=== PATIENT | male | born 1980 | race Caucasian/White ===

== ENCOUNTER → 2016-08-28 | Outpatient (CLI) | payer BC ==
[~2016-08-28] MED LIST: ADVIN25/60 INH; AMOX875T PO; ATOR-22 PO; CLR10 PO; DIAZ-165 PO; DOXY-300 PO; DULA0.5I INJ; GLIM4TAB2 PO; INSDGIPEN SC; LISI40TA PO; MONT1TAB5 PO; OXYC-57 PO; SERT-234 PO; SITA100T3 PO
[2016-08-28 11:06] LABS: ALB/GLOB RATIO 1.1 (0.9-2); ALT/SGPT 77 U/L (12-78); AST/SGOT 48 U/L (15-37); BLOOD UREA NITROGEN 9 mg/dl (7-18); BUN/CREATININE RATIO 13.4 (10-20); CARBON DIOXIDE 26 mmol/L (21-32); CHLORIDE 105 mmol/L (98-107); CHOLESTEROL 141 mg/dl (0-200); CREATININE 0.67 mg/dl (0.60-1.40); GLUCOSE 210 mg/dl (70-99); POTASSIUM 3.9 mmol/L (3.5-5.1); SODIUM 139 mmol/L (136-145); TRIGLYCERIDES 95 mg/dl (0-150); VERY LOW DENSITY LIPOPROT CALC 19 mg/dl
[2016-08-28 11:07] LABS: ALKALINE PHOSPHATASE 82 U/L (45-117); CHOLESTEROL/HDL RATIO 4.4; HDL CHOLESTEROL 32 mg/dl
[2016-08-28 11:21] LABS: ESTIMATED AVERAGE GLUCOSE 206 mg/dl; HA1C FLAG Normal (Normal)
[2016-08-28 11:55] LABS: CALCIUM 9.1 mg/dl (8.5-10.1)
== END | disposition home or self-care (01) ==
LOC: C.LABBC 07:57
PROVIDERS: ATTEND Family Medicine
DX: E11.65 Type 2 diabetes mellitus with hyperglycemia (principal); E78.2 Mixed hyperlipidemia

== ENCOUNTER 2016-09-28 15:53 | Emergency (ER) | payer BC ==
[~2016-09-28] VITALS: Ht 190.5 cm; Wt 151.6 kg
[2016-09-28] MEDS ORDERED: PIPERACILLIN/TAZOBACTAM 4.5 GM/100ML D5W IV STA (16:04)
[2016-09-28] MEDS ORDERED: SODIUM CHLORIDE 0.9% 1000ML 1,000 ML IV ONE (16:04)
[2016-09-28] MEDS ORDERED: ACETAMINOPHEN 500 MG TAB PO STA (16:04)
--- NOTE | 2016-09-28 16:21 | DIAGNOSTIC IMAGING REPORT ---
CHEST ONE VIEW PORTABLE CLINICAL HISTORY: Sepsis. Fever. COMPARISON STUDY: No previous studies for comparison. FINDINGS: Lung volumes are normal. Lungs are clear. There is no pneumothorax or pleural effusion. Cardiac size is normal. Mediastinal contours are normal. There is no evidence of pulmonary edema. IMPRESSION: No acute cardiopulmonary findings. Electronically signed by: Raman Phillips M.D. 09/28/2016 4:20 PM Dictated Date/Time: 09/28/2016 4:17 PM
[2016-09-28 16:29] VITALS: O2SAT 96; Ht 190.5 cm; Wt 151.6 kg
[2016-09-28 16:44] LABS: COMPLETE YES; EOS % 0.2 %; HEMATOCRIT 44.6 % (42-52); IG% 0.4 %; LYMPH % 5.7 %; LYMPH ABS # 0.73 K/uL (1.2-3.4); MEAN CORPUSCULAR HEMOGLOBIN 27.9 pg (25-34); MEAN CORPUSCULAR HGB CONC 33.2 g/dl (32-36); MEAN PLATELET VOLUME 9.4 fL (7.4-10.4); MONO % 5.7 %; PLATELET COUNT 148 K/uL (130-400); RED BLOOD COUNT 5.31 M/uL (4.7-6.1); WHITE BLOOD COUNT 12.74 K/uL (4.8-10.8)
--- NOTE | 2016-09-28 17:00 | EMERGENCY ROOM VISIT NOTE ---
History Report prepared by Noe: Adán Garcia Under the Supervision of: Dr. Douglas Mercado M.D. First contact with patient: 15:59 Chief Complaint: FEVER Stated Complaint: HIGH FEVER, ACHEY History of Present Illness The patient is a 35 year old male who presents to the Emergency Room with complaints of an intermittent fever that began today. The patient's said he was not himself yesterday while he was outside in the sun. The patient admits that he was outside where he could have potentially received a tick bite. He reports that he woke up this morning and had a fever of 105 and experienced vision loss, generalized aching pain, and erythema and swelling to his left leg. The patient states that he went to [facility] this morning where they "gave him medical advice". The patient states that he took 600 mg of Ibuprofen for his fever and admits that it alleviated some of his symptoms. The patient admits that he has been experiencing diarrhea that is not different from baseline. The patient states that he has Diabetic Mellitus and his last A1C was 8. He reports that he usually has a fast pulse. The patient denies any vomiting, cough, congestion, sore throat, abdominal pain, urinary symptoms, medication allergies, or being near someone with a similar illness. Source of History: patient Onset: today Position: other (global) Quality: ache Timing: intermittent Associated Symptoms: + diarrhea, No sorethroat, No cough, No nausea, No vomiting, No abdominal pain, No urinary symptoms Review of Systems See HPI for pertinent positives & negatives. A total of 10 systems reviewed and were otherwise negative. Past Medical & Surgical Medical Problems: (1) Asthma (2) Bronchitis (3) Diabetes (4) Heart disease (5) Hypertension Family History Cancer Diabetes mellitus FH: colon cancer FH: heart disease FHx: lung disease Hypertension Social History Smoking Status: Never Smoker Smokeless Tobacco Use: No Alcohol Use: occasionally Drug Use: none Marital Status: in relationship Housing Status: lives with significant other Occupation Status: employed Current/Historical Medications Scheduled Atorvastatin (Lipitor), 20 MG PO DAILY Dulaglutide (Trulicity), 1.5 MG INJ WK Fluticasone Prop/Salmeterol (Advair Diskus 250/50 60 Dose), 1 PUFF INH BID Glimepiride (Glimepiride), 8 MG PO QAM Lisinopril (Zestril), 40 MG PO DAILY Montelukast Sodium (Montelukast Sodium), 10 MG PO DAILY Sertraline (Zoloft), 200 MG PO DAILY Sitagliptin Phosphate (Januvia), 100 MG PO DAILY Scheduled PRN Loratadine (Claritin), 10 MG PO DAILY PRN for Allergy Symptoms Allergies Coded Allergies: No Known Allergies (Unverified , 09/28/16) Physical Exam Vital Signs Date Time Temp Pulse Resp B/P (MAP) Pulse Ox O2 Delivery O2 Flow Rate FiO2 09/28/16 18:01 37.3 78 18 145/75 96 09/28/16 17:57 37.3 78 18 145/75 09/28/16 16:29 96 Room Air 09/28/16 15:56 38.1 122 18 172/104 96 Room Air Physical Exam GENERAL: Patient is in no acute distress. HEENT: No acute trauma, normocephalic atraumatic, mucous membranes moist, no nasal congestion, no scleral icterus. NECK: No stridor, no adenopathy, no meningismus, trachea is midline. LUNGS: Clear to auscultation bilaterally, no wheeze, no rhonchi, breath sounds equal. HEART: Tachycardic, regular rhythm. No murmur. ABDOMEN: Soft, nontender, bowel sounds positive, no hernias, no peritonitis. EXTREMITIES: An area of erythema and warmth to left mid anterior leg. No drainage. Lesion is consistent with cellulitis. Area is 10 cm in diameter and area was outlined. NEUROLOGIC: Oriented x 3, no acute motor or sensory deficits, no focal weakness. SKIN: No rash, no jaundice, no diaphoresis. Medical Decision & Procedures ER Provider Diagnostic Interpretation: X-ray results as stated below per interpretation by me and the radiologist: CHEST ONE VIEW PORTABLE CLINICAL HISTORY: Sepsis. Fever. COMPARISON STUDY: No previous studies for comparison. FINDINGS: Lung volumes are normal. Lungs are clear. There is no pneumothorax or pleural effusion. Cardiac size is normal. Mediastinal contours are normal. There is no evidence of pulmonary edema. IMPRESSION: No acute cardiopulmonary findings. Electronically signed by: Raman Phillips M.D. 09/28/2016 4:20 PM Dictated Date/Time: 09/28/2016 4:17 PM Laboratory Results 09/28/16 16:23 Red Blood Count 5.31, Mean Corpuscular Volume 84.0, Mean Corpuscular Hemoglobin 27.9, Mean Corpuscular Hemoglobin Concent 33.2, Mean Platelet Volume 9.4, Neutrophils (%) (Auto) 88.0, Lymphocytes (%) (Auto) 5.7, Monocytes (%) (Auto) 5.7, Eosinophils (%) (Auto) 0.2, Basophils (%) (Auto) 0.0, Neutrophils # (Auto) 11.22, Lymphocytes # (Auto) 0.73, Monocytes # (Auto) 0.72, Eosinophils # (Auto) 0.02, Basophils # (Auto) 0.00 09/28/16 16:23 Test 09/28/16 16:23 09/28/16 16:37 White Blood Count 12.74 K/uL (4.8-10.8) Red Blood Count 5.31 M/uL (4.7-6.1) Hemoglobin 14.8 g/dL (14.0-18.0) Hematocrit 44.6 % (42-52) Mean Corpuscular Volume 84.0 fL (80-100) Mean Corpuscular Hemoglobin 27.9 pg (25-34) Mean Corpuscular Hemoglobin Concent 33.2 g/dl (32-36) Platelet Count 148 K/uL (130-400) Mean Platelet Volume 9.4 fL (7.4-10.4) Neutrophils (%) (Auto) 88.0 % Lymphocytes (%) (Auto) 5.7 % Monocytes (%) (Auto) 5.7 % Eosinophils (%) (Auto) 0.2 % Basophils (%) (Auto) 0.0 % Neutrophils # (Auto) 11.22 K/uL (1.4-6.5) Lymphocytes # (Auto) 0.73 K/uL (1.2-3.4) Monocytes # (Auto) 0.72 K/uL (0.11-0.59) Eosinophils # (Auto) 0.02 K/uL (0-0.5) Basophils # (Auto) 0.00 K/uL (0-0.2) RDW Standard Deviation 42.1 fL (36.4-46.3) RDW Coefficient of Variation 13.8 % (11.5-14.5) Immature Granulocyte % (Auto) 0.4 % Immature Granulocyte # (Auto) 0.05 K/uL (0.00-0.02) Anion Gap 10.0 mmol/L (3-11) Est Creatinine Clear Calc Drug Dose 149.0 ml/min Estimated GFR () 101.0 Estimated GFR (Non- 87.1 BUN/Creatinine Ratio 10.3 (10-20) Calcium Level 8.7 mg/dl (8.5-10.1) Total Bilirubin 0.9 mg/dl (0.2-1) Aspartate Amino Transf (AST/SGOT) 25 U/L (15-37) Alanine Aminotransferase (ALT/SGPT) 54 U/L (12-78) Alkaline Phosphatase 85 U/L (45-117) Total Protein 7.3 gm/dl (6.4-8.2) Albumin 3.6 gm/dl (3.4-5.0) Globulin 3.7 gm/dl (2.5-4.0) Albumin/Globulin Ratio 1.0 (0.9-2) Beta-Hydroxybutyric Acid 0.56 mg/dL (0.2-2.81) Lyme Disease IgG Antibody NEG (NEG) Lyme Disease IgM Antibody NEG (NEG) Bedside Lactic Acid Venous 1.76 mmol/L (0.90-1.70) Laboratory results reviewed by me. Medications Administered Medications (Trade) Dose Ordered Sig/Shanelle Route Start Time Stop Time Status Last Admin Dose Admin Sodium Chloride 1,000 ml @ 999 mls/hr Q1H1M ONCE IV 09/28/16 16:04 09/28/16 17:04 DC 09/28/16 16:44 999 MLS/HR Piperacillin Sod/ Tazobactam Sod (Zosyn Iv) 4.5 gm ONE STAT IV 09/28/16 16:04 09/28/16 16:07 DC 09/28/16 16:45 4.5 GM Acetaminophen (Tylenol Tab) 1,000 mg NOW STAT PO 09/28/16 16:04 09/28/16 16:07 DC 09/28/16 16:45 1,000 MG ED Course 1600: The patient was evaluated in room C03. A complete history and physical exam was performed. 1604: Tylenol Tab 1000 mg PO, Zosyn Iv 4.5 gm IV, Sodium Chloride 1000 ml @ 999 mls/hr IV. 1743: I reevaluated the patient. I discussed results and discharge instructions : He verbalized understanding and agreement. The patient is ready for discharge. Medication Reconciliation: I attest that I have personally reviewed the patient' s current medication list. Blood Pressure Screening: Patient was found to have an elevated blood pressure and was referred to their primary doctor for recheck and further treatment. Medical Decision Differential diagnoses considered include: cellulitis, sepsis, bacteremia, pneumonia, urinary tract infection, lyme's disease, dehydration, hyperglycemia. There is a mild leukocytosis which is likely consistent with infection. No anemia. Renal panel testing does not show renal failure, his sugar was elevated at over 300--I suspect this has come down with just his IV hydration. Of note, his typical sugars are in the 200 range. There was no hepatitis. There was no findings by laboratory testing to suggest Lyme disease. Chest x- ray does not show pneumonia. Lactic acid level is not significantly elevated making severe sepsis less likely. Blood cultures are pending. The patient received IV saline, he was given IV Zosyn for antibiotic coverage. He received oral Tylenol for his fever. The patient is doing well, his vital signs have basically normalized. He is not vomiting, he is not toxic. I do think he can be discharged to continue the doxycycline that was prescribed for 2 weeks. He already took his first dose today. He was encouraged to keep the leg elevated and to stay well-hydrated, Tylenol or Motrin for fever control. The patient will return here for worsening symptoms or if not improving. Outpatient family doctor follow-up was suggested. Impression Primary Impression: Left leg cellulitis Additional Impression: Fever Scribe Attestation The scribe's documentation has been prepared under my direction and personally reviewed by me in its entirety. I confirm that the note above accurately reflects all work, treatment, procedures, and medical decision making performed by me. Departure Information Dispostion Home / Self-Care Referrals Ari Vega D.O. (PCP) Forms HOME CARE DOCUMENTATION FORM, IMPORTANT VISIT INFORMATION Patient Instructions My [facility] Additional Instructions continue the doxycycline 2x per day for 2 weeks as prescribed stay well hydrated rest motrin/tylenol for pain and fever return for worsening symptoms as we discussed try to keep the leg elevated Problem Qualifiers
[2016-09-28 17:03] LABS: BUN/CREATININE RATIO 10.3 (10-20); CALCIUM 8.7 mg/dl (8.5-10.1); CREATININE 1.1 mg/dl (0.60-1.40); POTASSIUM 3.4 mmol/L (3.5-5.1)
[2016-09-28 17:13] LABS: BETA-HYDROXYBUTYRATE 0.56 mg/dL (0.2-2.81)
[2016-09-28 17:35] LABS: LYME DISEASE AB IGG NEG (NEG)
[2016-09-28 17:36] LABS: LYME DISEASE AB IGM NEG (NEG)
[2016-09-28 18:01] VITALS: BP 145/75; PULSE 78; TEMP 37.3; O2SAT 96
[2016-09-30] MEDS ORDERED: CLR10 PO (16:57)
[2016-09-30] MEDS ORDERED: SITA100T3 PO (16:57)
[2016-09-30] MEDS ORDERED: SERT-234 PO (16:57)
[2016-09-30] MEDS ORDERED: DULA0.5I INJ (16:57)
[2016-09-30] MEDS ORDERED: ATOR-22 PO (16:57)
[2016-09-30] MEDS ORDERED: LISI40TA PO (16:57)
[2016-09-30] MEDS ORDERED: GLIM4TAB2 PO (16:57)
[2016-09-30] MEDS ORDERED: ADVIN25/60 INH (16:57)
[2016-09-30] MEDS ORDERED: MONT1TAB5 PO (16:57)
[2016-10-02] MEDS ORDERED: INSDGIPEN SC (10:39)
[2016-10-02] MEDS ORDERED: AMOX875T PO (10:41)
== END 2016-09-28 18:02 | disposition home or self-care (01) ==
LOC: C.EDB 15:53 → C.EDC 18:02
DX: R50.9 Fever, unspecified (principal); L03.116 Cellulitis of left lower limb; J45.909 Unspecified asthma, uncomplicated; E11.9 Type 2 diabetes mellitus without complications; I51.9 Heart disease, unspecified; I10 Essential (primary) hypertension; Z80.9 Family history of malignant neoplasm, unspecified; Z83.3 Family history of diabetes mellitus; Z82.49 Family history of ischemic heart disease and other diseases of the circulatory system; Z83.6 Family history of other diseases of the respiratory system; Z79.899 Other long term (current) drug therapy

== ENCOUNTER 2016-09-30 19:54 | Inpatient (IN) | payer BC ==
[~2016-09-30] VITALS: Ht 182.9 cm; Wt 150.0 kg
[~2016-09-30 19:54] MED LIST changes: -AMOX875T PO; -DIAZ-165 PO; -DOXY-300 PO; -INSDGIPEN SC; -OXYC-57 PO
[2016-09-30] MEDS ORDERED: PIPERACILLIN/TAZOBACTAM 4.5 GM/100ML D5W IV STA (21:19)
[2016-09-30] MEDS ORDERED: SODIUM CHLORIDE 0.9% 1000ML 1,000 ML IV STA ×2 (21:19)
[2016-09-30] MEDS ORDERED: VANCOMYCIN INJ 2,800 MG in SODIUM CHLORIDE 0.9% 500ML 500 ML IV STA (21:19)
[2016-09-30 21:52] LABS: BASO % 0.2 %; BASO ABS # 0.01 K/uL (0-0.2); COMPLETE YES; EOS % 2.1 %; HEMATOCRIT 40.6 % (42-52); IG% 0.4 %; LYMPH % 30.5 %; LYMPH ABS # 1.71 K/uL (1.2-3.4); MEAN CELL VOLUME 85.7 fL (80-100); MEAN CORPUSCULAR HEMOGLOBIN 29.1 pg (25-34); NEUT % 56.8 %; PLATELET COUNT 135 K/uL (130-400); RED BLOOD COUNT 4.74 M/uL (4.7-6.1)
[2016-09-30 22:04] LABS: PROTHROMBIN TIME (PATIENT) 10.2 SECONDS (9.0-12.0)
[2016-09-30] MEDS ORDERED: DOXY-300 PO (22:06)
[2016-09-30 22:17] LABS: C-REACTIVE PROTEIN 9.15 mg/dl (0-0.29); CALCIUM 8.3 mg/dl (8.5-10.1); CREATININE 0.94 mg/dl (0.60-1.40); POTASSIUM 3.6 mmol/L (3.5-5.1)
[2016-09-30 22:21] LABS: ALB/GLOB RATIO 0.8 (0.9-2)
[2016-09-30 22:29] LABS: BETA-HYDROXYBUTYRATE 0.6 mg/dL (0.2-2.81)
[2016-09-30] MEDS ORDERED: NovoLIN-R INSULIN PER UNIT CHARGE SC STA ×2 (22:36→23:04)
--- NOTE | 2016-09-30 22:36 | DIAGNOSTIC IMAGING REPORT ---
LEFT TIBIA/FIBULA 2 VIEWS ROUTINE CLINICAL HISTORY: LEFT, CELLULITIS COMPARISON: None. DISCUSSION: Cortical margins are intact. No abnormal periosteal reaction. Diffuse soft tissue edema. Old avulsion tip medial malleolus. IMPRESSION: Generalized soft tissue edema. No acute bony abnormality. Electronically signed by: Brooks Mendieta M.D. 09/30/2016 10:35 PM Dictated Date/Time: 09/30/2016 10:34 PM
--- NOTE | 2016-09-30 22:55 | DIAGNOSTIC IMAGING REPORT ---
Venous Doppler left leg LEFT VENOUS DOPP LOWER EXT UNILAT CLINICAL HISTORY: LEFT, EVAL DVT pain. Edema. TECHNIQUE: Venous Doppler COMPARISON STUDY: None FINDINGS: Normal study IMPRESSION: Normal study Electronically signed by: Brooks Mendieta M.D. 09/30/2016 10:53 PM Dictated Date/Time: 09/30/2016 10:53 PM
--- NOTE | 2016-09-30 22:57 | EMERGENCY ROOM VISIT NOTE ---
ED Visit Note First contact with patient: 20:58 CHIEF COMPLAINT: Worsening left lower externally cellulitis 2 days HISTORY OF PRESENT ILLNESS: Patient is a 35-year-old white male with past medical history significant for hypertension, dyslipidemia, and diabetes who returns to the emergency department for worsening left lower extremity cellulitis. Patient reports that he scraped the left anterior ellington on his mower deck about 6 days ago. Through the weekend he noticed some redness and warmth over the anterior lower leg, developed a fever on Wednesday, 09/28 which prompted him to go to [facility]. He was placed on doxycycline. He was seen here in our facility later that evening where he had laboratory studies performed. Chest x-ray was negative. He was given a dose of IV Zosyn. He was discharged home to continue the doxycycline. He has had a total of 6 doses of doxycycline. He states that his symptoms were stable yesterday, and he stayed home from work and elevated the leg. His temperature trended down, but he does admit that he was using ibuprofen every 6 hours. Today he went back to work. He noticed that the left pant leg was bunching up on his calf. He noticed the increased redness and swelling when got home from work and took off his pants. The entire calf is now swollen, he notes increased pain and the redness-it is much deeper red. He rates his discomfort a 2/10. He has not had any further fevers. He has been taking the doxycycline as prescribed. He denies a prior history of skin infections or abscesses. REVIEW OF SYSTEMS: Review of systems as per HPI. All other systems reviewed were negative. 10 systems reviewed. PMH: Electronic medical records are reviewed and summarized as above/below. See Problem List. Patient reports that his tetanus is up-to-date. SOCIAL HISTORY: Patient living at home with his fiance and son. He is employed. Does not smoke.. PHYSICAL EXAM: Vital Signs: Reviewed Nurse's notes. Temperature 36.9C orally. Blood pressure 184/106. Heart rate 97 and regular. GENERAL: CONSTITUTIONAL: Patient is a well-appearing, nontoxic 35-year-old white male who is awake and alert and in no acute distress. HEENT: Normocephalic, atraumatic. Pupils equal, round, reactive to light and accommodation. EOMs intact without nystagmus. Sclera are anicteric. Tympanic membranes intact, with normal landmarks. External canals are clear. Oral and nasopharynx are clear. Mucous membranes are moist. NECK: Supple, nontender, no lymphadenopathy. LUNGS: Clear to auscultation. HEART: Regular rate and rhythm. NEUROLOGICAL: Alert and cooperative. Sensory and motor functions grossly intact. INTEGUMENTARY: Examination of the left anterior ellington show the small, scabbed over lesion, with surrounding deep, red, cellulitic changes, extending the entire length of the ellington. Slight vesicular lesions and petechiae are noted. The calf is moderately swollen. The area is tender to palpation although there is no fluctuance or pointing appreciated. No drainage present. MUSCULOSKELETAL: Left knee and left ankle are nontender to palpation, no joint effusion is appreciated. Range of motion is full. The left lower extremity is neurovascularly intact. EMERGENCY DEPARTMENT COURSE: The patient was seen and assessed as above. His prior ED record was reviewed. IV lock was initiated and the patient was hydrated with normal saline solution. He was treated with vancomycin 2.8 g and Zosyn 4.5 g IV. Prior labs noted negative blood cultures 2 from 48 hours ago. He did have a slight leukocytosis at that time. Repeat CBC with differential , ESR, CRP, coags, CMP and blood cultures 2 were drawn. Left tib-fib x-ray and left lower extremity ultrasound were performed. History and presentation were reviewed with attending physician, and ED workup was agreed upon. Patient's laboratory studies today noted a normal white count of 5600, it had been elevated at around 12,502 days ago. He has slight elevation of his inflammatory markers. Coags are normal. Electrolytes are without gross abnormality. Renal function is normal. His lactic acid is 2.11, up from 1.742 days ago. He is noted to be hyperglycemic with a blood sugar of 447. He was given 12 units of Regular Insulin subcutaneous when he returned from his diagnostic imaging. Ultrasound of the left lower extremity did not demonstrate DVT. X-ray of the tib-fib noted soft tissue swelling only. The patient has failed reasonable outpatient management of a left lower extremity cellulitis. Patient was reviewed with the manager utilization management, and discuss with the [facility] hospitalist service for admission /observation. Differential diagnoses entertained included cellulitis, DVT, superficial thrombophlebitis, abscess, necrotizing fasciitis, osteomyelitis, among others. Venous Doppler left leg LEFT VENOUS DOPP LOWER EXT UNILAT CLINICAL HISTORY: LEFT, EVAL DVT pain. Edema. TECHNIQUE: Venous Doppler COMPARISON STUDY: None FINDINGS: Normal study IMPRESSION: Normal study LEFT TIBIA/FIBULA 2 VIEWS ROUTINE CLINICAL HISTORY: LEFT, CELLULITIS COMPARISON: None. DISCUSSION: Cortical margins are intact. No abnormal periosteal reaction. Diffuse soft tissue edema. Old avulsion tip medial malleolus. IMPRESSION: Generalized soft tissue edema. No acute bony abnormality. Problem List Medical Problems: (1) Asthma Status: Chronic (2) Bronchitis Status: Resolved (3) Diabetes Status: Chronic (4) Fever Status: Resolved (5) Heart disease Status: Chronic (6) Hypertension Status: Chronic (7) Left leg cellulitis Status: Resolved (8) Mixed Hyperlipidemia Status: Chronic Current/Historical Medications Scheduled Atorvastatin (Lipitor), 20 MG PO DAILY Doxycycline (Monohydrate) (Doxycycline), 1 CAP PO BID Dulaglutide (Trulicity), 1.5 MG INJ WK Fluticasone Prop/Salmeterol (Advair Diskus 250/50 60 Dose), 1 PUFF INH BID Glimepiride (Glimepiride), 8 MG PO QAM Lisinopril (Zestril), 40 MG PO DAILY Montelukast Sodium (Montelukast Sodium), 10 MG PO DAILY Sertraline (Zoloft), 200 MG PO DAILY Sitagliptin Phosphate (Januvia), 100 MG PO DAILY Scheduled PRN Loratadine (Claritin), 10 MG PO DAILY PRN for Allergy Symptoms Allergies Coded Allergies: No Known Allergies (Unverified , 09/28/16) Vital Signs Date Time Temp Pulse Resp B/P (MAP) Pulse Ox O2 Delivery O2 Flow Rate FiO2 09/30/16 23:02 98 16 173/105 93 Room Air 09/30/16 21:22 94 16 179/104 95 Room Air 09/30/16 19:55 36.9 97 18 184/106 97 Room Air Laboratory Results 09/30/16 21:30 Red Blood Count 4.74, Mean Corpuscular Volume 85.7, Mean Corpuscular Hemoglobin 29.1, Mean Corpuscular Hemoglobin Concent 34.0, Mean Platelet Volume 10.0, Neutrophils (%) (Auto) 56.8, Lymphocytes (%) (Auto) 30.5, Monocytes (%) (Auto) 10.0, Eosinophils (%) (Auto) 2.1, Basophils (%) (Auto) 0.2, Neutrophils # (Auto ) 3.18, Lymphocytes # (Auto) 1.71, Monocytes # (Auto) 0.56, Eosinophils # (Auto ) 0.12, Basophils # (Auto) 0.01 09/30/16 21:30 Test 09/30/16 21:30 09/30/16 21:38 White Blood Count 5.60 K/uL (4.8-10.8) Red Blood Count 4.74 M/uL (4.7-6.1) Hemoglobin 13.8 g/dL (14.0-18.0) Hematocrit 40.6 % (42-52) Mean Corpuscular Volume 85.7 fL (80-100) Mean Corpuscular Hemoglobin 29.1 pg (25-34) Mean Corpuscular Hemoglobin Concent 34.0 g/dl (32-36) Platelet Count 135 K/uL (130-400) Mean Platelet Volume 10.0 fL (7.4-10.4) Neutrophils (%) (Auto) 56.8 % Lymphocytes (%) (Auto) 30.5 % Monocytes (%) (Auto) 10.0 % Eosinophils (%) (Auto) 2.1 % Basophils (%) (Auto) 0.2 % Neutrophils # (Auto) 3.18 K/uL (1.4-6.5) Lymphocytes # (Auto) 1.71 K/uL (1.2-3.4) Monocytes # (Auto) 0.56 K/uL (0.11-0.59) Eosinophils # (Auto) 0.12 K/uL (0-0.5) Basophils # (Auto) 0.01 K/uL (0-0.2) RDW Standard Deviation 43.5 fL (36.4-46.3) RDW Coefficient of Variation 13.8 % (11.5-14.5) Immature Granulocyte % (Auto) 0.4 % Immature Granulocyte # (Auto) 0.02 K/uL (0.00-0.02) Erythrocyte Sedimentation Rate 24 mm/hr (0-14) Prothrombin Time 10.2 SECONDS (9.0-12.0) Prothromb Time International Ratio 1.0 (0.9-1.1) Activated Partial Thromboplast Time 25.7 SECONDS (21.0-31.0) Partial Thromboplastin Ratio 1.0 Anion Gap 9.0 mmol/L (3-11) Est Creatinine Clear Calc Drug Dose 171.2 ml/min Estimated GFR () 122.1 Estimated GFR (Non- 105.4 BUN/Creatinine Ratio 7.0 (10-20) Calcium Level 8.3 mg/dl (8.5-10.1) Total Bilirubin 0.5 mg/dl (0.2-1) Aspartate Amino Transf (AST/SGOT) 23 U/L (15-37) Alanine Aminotransferase (ALT/SGPT) 41 U/L (12-78) Alkaline Phosphatase 68 U/L (45-117) C-Reactive Protein 9.15 mg/dl (0-0.29) Total Protein 6.8 gm/dl (6.4-8.2) Albumin 3.0 gm/dl (3.4-5.0) Globulin 3.8 gm/dl (2.5-4.0) Albumin/Globulin Ratio 0.8 (0.9-2) Beta-Hydroxybutyric Acid 0.60 mg/dL (0.2-2.81) Bedside Lactic Acid Venous 2.11 mmol/L (0.90-1.70) Medications Administered Medications (Trade) Dose Ordered Sig/Shanelle Route Start Time Stop Time Status Last Admin Dose Admin Piperacillin Sod/ Tazobactam Sod (Zosyn Iv) 4.5 gm NOW STAT IV 09/30/16 21:19 09/30/16 21:21 DC 09/30/16 21:47 4.5 GM Vancomycin HCl 2800 mg/Sodium Chloride 556 ml @ 200 mls/hr ONE STAT IV 09/30/16 21:19 10/01/16 00:05 09/30/16 22:54 200 MLS/HR Sodium Chloride 1,000 ml @ 999 mls/hr Q1H1M STAT IV 09/30/16 21:19 09/30/16 22:19 DC 09/30/16 21:47 999 MLS/HR Sodium Chloride 1,000 ml @ 250 mls/hr Q4H STAT IV 09/30/16 21:19 10/01/16 01:18 09/30/16 21:19 250 MLS/HR Insulin Human Regular (novoLIN-R U-100 PER UNIT) 10 units NOW STAT SC 09/30/16 22:36 09/30/16 22:37 DC 09/30/16 23:00 10 UNITS Departure Information Impression Primary Impression: Left leg cellulitis Additional Impression: Failure of outpatient treatment Dispostion Being Evaluated By Hospitalist Referrals No Doctor, Assigned (PCP) Patient Instructions [facility] Problem Qualifiers
[2016-09-30 23:50] VITALS: BP 149/92; PULSE 82; TEMP 36.9; O2SAT 96
[2016-10-01] MEDS ORDERED: ONDANSETRON INJ 2 MG/ML 2 ML VIAL IV PRN (01:30)
[2016-10-01] MEDS ORDERED: POLYETHYLENE (MIRALAX) 17 GM PACK PO PRN (01:30)
[2016-10-01] MEDS ORDERED: ACETAMINOPHEN 325 MG TAB PO PRN (01:30)
[2016-10-01] MEDS ORDERED: LORATADINE 10 MG TAB PO PRN (01:30)
--- NOTE | 2016-10-01 01:30 | History and Physical ---
History & Physical Date & Time of Service: Oct 01, 2016 at 01:30 Chief Complaint: Lf Leg Infection,Revisit Primary Care Physician: No Doctor, Assigned History of Present Illness Source: patient 35-year-old male with a past medical history of hypertension, dyslipidemia, diabetes presented to the ER with complaints of left lower extremity swelling. The patient reported that he had sustained a minor [place] on his left [place] [facility] [place], he had been [place] the following day and over the weekend had noticed increased redness and swelling. He had gone to the [facility] and was treated with doxycycline. He presented to the ER the same evening and was given a dose of IV Zosyn and recommended to continue doxycycline. He returned this evening complaining of worsening swelling and redness. He stated that he initially had a fever before any antibiotics but did not have any more spikes in temperature. Denies any numbness or tingling in the affected limb and states that his pain is 2 on 10 in severity Past Medical/Surgical History Medical Problems: (1) Asthma Status: Chronic (2) Bronchitis Status: Resolved (3) Diabetes Status: Chronic (4) Fever Status: Resolved (5) Heart disease Status: Chronic (6) Hypertension Status: Chronic (7) Left leg cellulitis Status: Resolved (8) Mixed Hyperlipidemia Status: Chronic Family History Cancer Diabetes mellitus FH: colon cancer FH: heart disease FHx: lung disease Hypertension Social History Smoking Status: Never Smoker Drug Use: none Marital Status: in relationship Occupational Status: employed Allergies Coded Allergies: No Known Allergies (Unverified , 09/28/16) Home Medications Scheduled Amoxicillin & Pot Clavulanate (Augmentin 875-125 mg), 875 MG PO BID Atorvastatin (Lipitor), 20 MG PO DAILY Dulaglutide (Trulicity), 1.5 MG INJ WK Fluticasone Prop/Salmeterol (Advair Diskus 250/50 60 Dose), 1 PUFF INH BID Glimepiride (Glimepiride), 8 MG PO QAM Insulin Glargine (Lantus Solostar), 20 UNIT SC QAM Lisinopril (Zestril), 40 MG PO DAILY Montelukast Sodium (Montelukast Sodium), 10 MG PO DAILY Sertraline (Zoloft), 200 MG PO DAILY Scheduled PRN Loratadine (Claritin), 10 MG PO DAILY PRN for Allergy Symptoms Review of Systems Constitutional: No fever, No chills Eyes: No worsening of vision ENT: No hearing loss Respiratory: No cough, No sputum Cardiovascular: No chest pain Abdomen: No pain, No nausea, No vomiting Musculoskeletal: + problem reported (left lower extremity swelling and redness) Genitourinary - Male: No hematuria, No dysuria Neurologic: No memory loss Psychiatric: No depression symptoms Endocrine: No fatigue Hematologic / Lymphatic: No abnormal bleeding/bruising Physical Exam Vital Signs Date Time Temp Pulse Resp B/P (MAP) Pulse Ox O2 Delivery O2 Flow Rate FiO2 10/01/16 00:21 92 16 163/94 96 Room Air 09/30/16 23:02 98 16 173/105 93 Room Air 09/30/16 21:22 94 16 179/104 95 Room Air 09/30/16 19:55 36.9 97 18 184/106 97 Room Air General Appearance: WD/WN, no apparent distress Head: normocephalic Eyes: normal inspection ENT: normal ENT inspection, hearing grossly normal Neck: supple Respiratory/Chest: chest non-tender, lungs clear, normal breath sounds, no respiratory distress, no accessory muscle use Cardiovascular: regular rate, rhythm Abdomen/GI: normal bowel sounds, non tender, soft Back: normal inspection Extremities/Musculoskelatal: + pertinent finding (left lower extremity swelling , erythema, warm and tender to palpation. No obvious drainage. ) Neurologic/Psych: alert, normal mood/affect, oriented x 3 Diagnostics Laboratory Results Results Past 24 Hours Test 09/30/16 21:30 09/30/16 21:38 09/30/16 23:37 10/01/16 00:57 Range/Units White Blood Count 5.60 4.8-10.8 K/uL Red Blood Count 4.74 4.7-6.1 M/uL Hemoglobin 13.8 14.0-18.0 g/dL Hematocrit 40.6 42-52 % Mean Corpuscular Volume 85.7 80-100 fL Mean Corpuscular Hemoglobin 29.1 25-34 pg Mean Corpuscular Hemoglobin Concent 34.0 32-36 g/dl Platelet Count 135 130-400 K/uL Mean Platelet Volume 10.0 7.4-10.4 fL Neutrophils (%) (Auto) 56.8 % Lymphocytes (%) (Auto) 30.5 % Monocytes (%) (Auto) 10.0 % Eosinophils (%) (Auto) 2.1 % Basophils (%) (Auto) 0.2 % Neutrophils # (Auto) 3.18 1.4-6.5 K/uL Lymphocytes # (Auto) 1.71 1.2-3.4 K/uL Monocytes # (Auto) 0.56 0.11-0.59 K/uL Eosinophils # (Auto) 0.12 0-0.5 K/uL Basophils # (Auto) 0.01 0-0.2 K/uL RDW Standard Deviation 43.5 36.4-46.3 fL RDW Coefficient of Variation 13.8 11.5-14.5 % Immature Granulocyte % (Auto) 0.4 % Immature Granulocyte # (Auto) 0.02 0.00-0.02 K/uL Erythrocyte Sedimentation Rate 24 0-14 mm/hr Prothrombin Time 10.2 9.0-12.0 SECONDS Prothromb Time International Ratio 1.0 0.9-1.1 Activated Partial Thromboplast Time 25.7 21.0-31.0 SECONDS Partial Thromboplastin Ratio 1.0 Sodium Level 138 136-145 mmol/L Potassium Level 3.6 3.5-5.1 mmol/L Chloride Level 105 98-107 mmol/L Carbon Dioxide Level 24 21-32 mmol/L Anion Gap 9.0 3-11 mmol/L Blood Urea Nitrogen 7 7-18 mg/dl Creatinine 0.94 0.60-1.40 mg/dl Est Creatinine Clear Calc Drug Dose 171.2 ml/min Estimated GFR () 122.1 Estimated GFR (Non- 105.4 BUN/Creatinine Ratio 7.0 10-20 Random Glucose 447 70-99 mg/dl Calcium Level 8.3 8.5-10.1 mg/dl Total Bilirubin 0.5 0.2-1 mg/dl Aspartate Amino Transf (AST/SGOT) 23 15-37 U/L Alanine Aminotransferase (ALT/SGPT) 41 12-78 U/L Alkaline Phosphatase 68 45-117 U/L C-Reactive Protein 9.15 0-0.29 mg/dl Total Protein 6.8 6.4-8.2 gm/dl Albumin 3.0 3.4-5.0 gm/dl Globulin 3.8 2.5-4.0 gm/dl Albumin/Globulin Ratio 0.8 0.9-2 Beta-Hydroxybutyric Acid 0.60 0.2-2.81 mg/dL Bedside Lactic Acid Venous 2.11 0.90-1.70 mmol/L Bedside Glucose 355 274 70-99 mg/dl Microbiology Results 09/30/16 Blood Culture, Received Pending 09/30/16 Blood Culture, Received Pending Diagnostic Radiology LEFT TIBIA/FIBULA 2 VIEWS ROUTINE CLINICAL HISTORY: LEFT, CELLULITIS COMPARISON: None. DISCUSSION: Cortical margins are intact. No abnormal periosteal reaction. Diffuse soft tissue edema. Old avulsion tip medial malleolus. IMPRESSION: Generalized soft tissue edema. No acute bony abnormality. Electronically signed by: Brooks Mendieta M.D. 09/30/2016 10:35 PM Dictated Date/Time: 09/30/2016 10:34 PM Venous Doppler left leg LEFT VENOUS DOPP LOWER EXT UNILAT CLINICAL HISTORY: LEFT, EVAL DVT pain. Edema. TECHNIQUE: Venous Doppler COMPARISON STUDY: None FINDINGS: Normal study IMPRESSION: Normal study Impression Assessment and Plan 35-year-old male with a past medical history of hypertension, dyslipidemia, diabetes presented to the ER with complaints of left lower extremity swelling. He was treated with doxycycline as an outpatient and had used doxycycline for about 2 days. Was given IV Zosyn in the ER for the weekend and recommended to continue doxycycline. Left lower extremity cellulitis: - Failed outpatient treatment with doxycycline - Lower extremity x-ray: Negative - Venous Doppler for DVT: Negative - Blood cultures from previous ER visit negative - Continue vancomycin and Zosyn Hyperglycemia: History of diabetes mellitus - Patient stated that he had sweetened ice tea prior to arrival - Blood sugars at 447 - Insulin sliding scale, hemoglobin A1c added Hypertension: - Continue lisinopril Hyperlipidemia: - Continue atorvastatin DVT prophylaxis: - Heparin subcutaneous Full code Disposition: Admitted to [facility] Level of Care Med/Surg VTE Prophylaxis VTE Risk Assessment Done? Y/N: Yes Risk Level: Moderate Given or contraindicated: Unfractionated heparin SQ Resident Tracking Resident Involvement: Resident Care Provided Care Provided: [facility] Medicine Assessment and Plan Attending Addendum: I have physically seen and examined this patient, have directed their medical care, have supervised the medical residents activities, and agree with the H&P as noted above, with the following changes: NONE
[2016-10-01] MEDS ORDERED: PIPERACILL/TAZOBAC CONSULT ACTIVE PRN (02:00)
[2016-10-01] MEDS ORDERED: VANCOMYCIN CONSULT ACTIVE PRN (02:00)
[2016-10-01 02:45] VITALS: BP 167/99; PULSE 86; TEMP 36.8; BMI 45.3
[2016-10-01] MEDS: PIPERACILL/TAZOBAC IV 4.5 GM in DEXTROSE 5% 100ML IV SCH ×3 (03:28→19:37)
[2016-10-01 03:30] VITALS: BP 141/84; O2SAT 98
[2016-10-01] MEDS ORDERED: GLUCOSE 40% GEL 15 GM TUBE PO PRN (04:00)
[2016-10-01] MEDS ORDERED: GLUCAGON FOR INJ 1 MG VIAL SQ PRN (04:00)
[2016-10-01] MEDS ORDERED: DEXTROSE 50% 50 ML SYR IV PRN (04:00)
[2016-10-01] MEDS ORDERED: GLUCOSE 10 TABS/TUBE PO PRN (04:00)
[2016-10-01] MEDS: HEPARIN SOD 5000 UNIT/0.5 ML CARP SQ SCH ×3 (05:35→22:04)
[2016-10-01] MEDS ORDERED: PIPERACILL/TAZOBAC IV 3.375 GM in DEXTROSE 5% 100ML 100 ML IV SCH (06:00)
[2016-10-01 07:14] VITALS: BP 156/97; PULSE 81; TEMP 36.7; O2SAT 96
[2016-10-01 07:15] LABS: BASO % 0.1 %; BASO ABS # 0.01 K/uL (0-0.2); COMPLETE YES; EOS % 3.3 %; HEMATOCRIT 42.5 % (42-52); IG% 0.3 %; LYMPH % 23.9 %; LYMPH ABS # 1.61 K/uL (1.2-3.4); MEAN CELL VOLUME 84.2 fL (80-100); MEAN CORPUSCULAR HEMOGLOBIN 27.3 pg (25-34); MEAN CORPUSCULAR HGB CONC 32.5 g/dl (32-36); MEAN PLATELET VOLUME 9.6 fL (7.4-10.4); MONO % 8.3 %; NEUT % 64.1 %; PLATELET COUNT 144 K/uL (130-400); RED BLOOD COUNT 5.05 M/uL (4.7-6.1); WHITE BLOOD COUNT 6.73 K/uL (4.8-10.8)
[2016-10-01] MEDS: VANCOMYCIN INJ 2,600 MG in SODIUM CHLORIDE 0.9% 500ML 500 ML IV SCH ×3 (07:40→23:53)
[2016-10-01] MEDS: ATORVASTATIN 20 MG TAB PO SCH (07:41)
[2016-10-01] MEDS: MONTELUKAST SOD 10 MG TAB PO SCH (07:42)
[2016-10-01] MEDS: SERTRALINE HCL 100 MG TAB PO SCH (07:42)
[2016-10-01] MEDS: FLUTICASONE/SALMETEROL 250/50 (ADVAIR) 14 PUFF/1 INHALER INH SCH ×2 (07:43→21:19)
[2016-10-01] MEDS: LISINOPRIL 40 MG TAB PO SCH (07:43)
[2016-10-01 07:49] LABS: ALB/GLOB RATIO 0.8 (0.9-2); BUN/CREATININE RATIO 11.1 (10-20); CALCIUM 7.8 mg/dl (8.5-10.1); CREATININE 0.68 mg/dl (0.60-1.40); POTASSIUM 3.4 mmol/L (3.5-5.1)
--- NOTE | 2016-10-01 07:53 | Progress Note ---
Subjective Date of Service: Oct 01, 2016. Subjective pt is doing well, leg less tight and feels less painful, redness persists but has receeded somewhat Problem List Medical Problems: (1) Asthma Status: Chronic (2) Diabetes Status: Chronic (3) Failure of outpatient treatment Status: Acute (4) Heart disease Status: Chronic (5) Hypertension Status: Chronic (6) Left leg cellulitis Status: Acute (7) Mixed Hyperlipidemia Status: Chronic Review of Systems Constitutional: No fever, No chills, No weakness, No fatigue Respiratory: No cough, No sputum, No wheezing Cardiac: + edema, No chest pain, No orthopnea, No PND Abdomen: No pain, No nausea, No vomiting, No diarrhea Musculoskeletal: + muscle pain, + swelling, No joint pain Male : No dysuria, No urinary frequency Skin: + rash, + new/changing skin lesions Objective Vital Signs Date Time Temp Pulse Resp B/P (MAP) Pulse Ox O2 Delivery O2 Flow Rate FiO2 10/01/16 07:14 36.7 81 20 156/97 (116) 96 Room Air 10/01/16 03:30 Room Air 10/01/16 03:30 141/84 (103) 98 Room Air 10/01/16 02:45 36.8 86 18 167/99 Room Air 10/01/16 02:33 92 16 213/116 99 10/01/16 00:21 92 16 163/94 96 Room Air 09/30/16 23:02 98 16 173/105 93 Room Air 09/30/16 21:22 94 16 179/104 95 Room Air 09/30/16 19:55 36.9 97 18 184/106 97 Room Air Physical Exam General Appearance: WD/WN, + mild distress Eyes: PERRL, EOMI Neck: supple, no JVD Respiratory/Chest: chest non-tender, lungs clear, normal breath sounds Cardiovascular: regular rate, rhythm, no murmur Abdomen: normal bowel sounds, non tender, soft Extremities: no pedal edema, no calf tenderness Neurologic/Psychiatric: alert, oriented x 3 Laboratory Results Last 24 Hours Test 09/30/16 21:30 09/30/16 21:38 09/30/16 23:37 10/01/16 00:57 White Blood Count 5.60 K/uL Red Blood Count 4.74 M/uL Hemoglobin 13.8 g/dL Hematocrit 40.6 % Mean Corpuscular Volume 85.7 fL Mean Corpuscular Hemoglobin 29.1 pg Mean Corpuscular Hemoglobin Concent 34.0 g/dl Platelet Count 135 K/uL Mean Platelet Volume 10.0 fL Neutrophils (%) (Auto) 56.8 % Lymphocytes (%) (Auto) 30.5 % Monocytes (%) (Auto) 10.0 % Eosinophils (%) (Auto) 2.1 % Basophils (%) (Auto) 0.2 % Neutrophils # (Auto) 3.18 K/uL Lymphocytes # (Auto) 1.71 K/uL Monocytes # (Auto) 0.56 K/uL Eosinophils # (Auto) 0.12 K/uL Basophils # (Auto) 0.01 K/uL RDW Standard Deviation 43.5 fL RDW Coefficient of Variation 13.8 % Immature Granulocyte % (Auto) 0.4 % Immature Granulocyte # (Auto) 0.02 K/uL Erythrocyte Sedimentation Rate 24 mm/hr Prothrombin Time 10.2 SECONDS Prothromb Time International Ratio 1.0 Activated Partial Thromboplast Time 25.7 SECONDS Partial Thromboplastin Ratio 1.0 Sodium Level 138 mmol/L Potassium Level 3.6 mmol/L Chloride Level 105 mmol/L Carbon Dioxide Level 24 mmol/L Anion Gap 9.0 mmol/L Blood Urea Nitrogen 7 mg/dl Creatinine 0.94 mg/dl Est Creatinine Clear Calc Drug Dose 171.2 ml/min Estimated GFR () 122.1 Estimated GFR (Non- 105.4 BUN/Creatinine Ratio 7.0 Random Glucose 447 mg/dl Calcium Level 8.3 mg/dl Total Bilirubin 0.5 mg/dl Aspartate Amino Transf (AST/SGOT) 23 U/L Alanine Aminotransferase (ALT/SGPT) 41 U/L Alkaline Phosphatase 68 U/L C-Reactive Protein 9.15 mg/dl Total Protein 6.8 gm/dl Albumin 3.0 gm/dl Globulin 3.8 gm/dl Albumin/Globulin Ratio 0.8 Beta-Hydroxybutyric Acid 0.60 mg/dL Bedside Lactic Acid Venous 2.11 mmol/L Bedside Glucose 355 mg/dl 274 mg/dl Test 10/01/16 07:08 White Blood Count 6.73 K/uL Red Blood Count 5.05 M/uL Hemoglobin 13.8 g/dL Hematocrit 42.5 % Mean Corpuscular Volume 84.2 fL Mean Corpuscular Hemoglobin 27.3 pg Mean Corpuscular Hemoglobin Concent 32.5 g/dl Platelet Count 144 K/uL Mean Platelet Volume 9.6 fL Neutrophils (%) (Auto) 64.1 % Lymphocytes (%) (Auto) 23.9 % Monocytes (%) (Auto) 8.3 % Eosinophils (%) (Auto) 3.3 % Basophils (%) (Auto) 0.1 % Neutrophils # (Auto) 4.31 K/uL Lymphocytes # (Auto) 1.61 K/uL Monocytes # (Auto) 0.56 K/uL Eosinophils # (Auto) 0.22 K/uL Basophils # (Auto) 0.01 K/uL RDW Standard Deviation 41.9 fL RDW Coefficient of Variation 13.8 % Immature Granulocyte % (Auto) 0.3 % Immature Granulocyte # (Auto) 0.02 K/uL Sodium Level 141 mmol/L Potassium Level 3.4 mmol/L Chloride Level 108 mmol/L Carbon Dioxide Level 26 mmol/L Anion Gap 7.0 mmol/L Blood Urea Nitrogen 8 mg/dl Creatinine 0.68 mg/dl Est Creatinine Clear Calc Drug Dose 230.7 ml/min Estimated GFR () 144.4 Estimated GFR (Non- 124.6 BUN/Creatinine Ratio 11.1 Random Glucose 165 mg/dl Lactic Acid Level 0.9 mmol/L Calcium Level 7.8 mg/dl Total Bilirubin 0.6 mg/dl Aspartate Amino Transf (AST/SGOT) 26 U/L Alanine Aminotransferase (ALT/SGPT) 43 U/L Alkaline Phosphatase 70 U/L Total Protein 6.9 gm/dl Albumin 3.1 gm/dl Globulin 3.8 gm/dl Albumin/Globulin Ratio 0.8 Assessment and Plan 35-M Failing outpt treatment of diabetic lower leg infection, history of hypertension, dyslipidemia Left lower extremity cellulitis: - Failed outpatient treatment with doxycycline - Lower extremity x-ray: Negative - Venous Doppler for DVT: Negative - Blood cultures from previous ER visit negative - NOw on vancomycin and Zosyn Hyperglycemia:- Insulin sliding scale, hemoglobin A1c added Hypertension: lisinopril also for renal protective affects Hyperlipidemia: atorvastatin DVT prophylaxis: - Heparin subcutaneous Full code
[2016-10-01] MEDS ORDERED: PNEUMOCOCCAL ADMINISTRATION CHARGE ONE (08:00)
[2016-10-01] MEDS ORDERED: PNEUMOCOCCAL POLYSACCHARIDES 25 MCG/0.5 ML VIAL/SYR IM. ONE (08:00)
[2016-10-01 08:29] LABS: ESTIMATED AVERAGE GLUCOSE 214 mg/dl; HA1C FLAG Normal (Normal)
[2016-10-01] MEDS: INSULIN ASPART 100 UNITS/ML 3 ML PEN SC SCH ×4 (08:57→21:00)
[2016-10-01] MEDS ORDERED: VANCOMYCIN INJ 1,000 MG in SODIUM CHLORIDE 0.9% 250ML 250 ML IV SCH (09:00)
--- NOTE | 2016-10-01 10:21 | Pharmacy Progress Note ---
Pharmacy Antibiotic Consult Date of Service: Oct 01, 2016. Pharmacy Dosing Scope Pharmacy is consulted to initiate vancomycin and Zosyn IV dosing therapy, order appropriate labs and adjust drug dose/frequency. Subjective The patient is a 35 year old male admitted on Oct 01, 2016 at 01:26 with LLE cellulitis. History of DM, failed outpatient treatment of cellulitis with doxycycline. Objective Height (Feet): 6 Height (Inches): 2.00 Weight (Kilograms): 150.000 Lab Results (24hrs): Test 09/30/16 21:30 09/30/16 21:38 10/01/16 00:57 10/01/16 07:08 White Blood Count 5.60 K/uL (4.8-10.8) 6.73 K/uL (4.8-10.8) Red Blood Count 4.74 M/uL (4.7-6.1) 5.05 M/uL (4.7-6.1) Hemoglobin 13.8 g/dL (14.0-18.0) 13.8 g/dL (14.0-18.0) Hematocrit 40.6 % (42-52) 42.5 % (42-52) Mean Corpuscular Volume 85.7 fL (80-100) 84.2 fL (80-100) Mean Corpuscular Hemoglobin 29.1 pg (25-34) 27.3 pg (25-34) Mean Corpuscular Hemoglobin Concent 34.0 g/dl (32-36) 32.5 g/dl (32-36) Platelet Count 135 K/uL (130-400) 144 K/uL (130-400) Mean Platelet Volume 10.0 fL (7.4-10.4) 9.6 fL (7.4-10.4) Neutrophils (%) (Auto) 56.8 % 64.1 % Lymphocytes (%) (Auto) 30.5 % 23.9 % Monocytes (%) (Auto) 10.0 % 8.3 % Eosinophils (%) (Auto) 2.1 % 3.3 % Basophils (%) (Auto) 0.2 % 0.1 % Neutrophils # (Auto) 3.18 K/uL (1.4-6.5) 4.31 K/uL (1.4-6.5) Lymphocytes # (Auto) 1.71 K/uL (1.2-3.4) 1.61 K/uL (1.2-3.4) Monocytes # (Auto) 0.56 K/uL (0.11-0.59) 0.56 K/uL (0.11-0.59) Eosinophils # (Auto) 0.12 K/uL (0-0.5) 0.22 K/uL (0-0.5) Basophils # (Auto) 0.01 K/uL (0-0.2) 0.01 K/uL (0-0.2) RDW Standard Deviation 43.5 fL (36.4-46.3) 41.9 fL (36.4-46.3) RDW Coefficient of Variation 13.8 % (11.5-14.5) 13.8 % (11.5-14.5) Immature Granulocyte % (Auto) 0.4 % 0.3 % Immature Granulocyte # (Auto) 0.02 K/uL (0.00-0.02) 0.02 K/uL (0.00-0.02) Erythrocyte Sedimentation Rate 24 mm/hr (0-14) Prothrombin Time 10.2 SECONDS (9.0-12.0) Prothromb Time International Ratio 1.0 (0.9-1.1) Activated Partial Thromboplast Time 25.7 SECONDS (21.0-31.0) Partial Thromboplastin Ratio 1.0 Sodium Level 138 mmol/L (136-145) 141 mmol/L (136-145) Potassium Level 3.6 mmol/L (3.5-5.1) 3.4 mmol/L (3.5-5.1) Chloride Level 105 mmol/L (98-107) 108 mmol/L (98-107) Carbon Dioxide Level 24 mmol/L (21-32) 26 mmol/L (21-32) Anion Gap 9.0 mmol/L (3-11) 7.0 mmol/L (3-11) Blood Urea Nitrogen 7 mg/dl (7-18) 8 mg/dl (7-18) Creatinine 0.94 mg/dl (0.60-1.40) 0.68 mg/dl (0.60-1.40) Est Creatinine Clear Calc Drug Dose 171.2 ml/min 230.7 ml/min Estimated GFR () 122.1 144.4 Estimated GFR (Non- 105.4 124.6 BUN/Creatinine Ratio 7.0 (10-20) 11.1 (10-20) Random Glucose 447 mg/dl (70-99) 165 mg/dl (70-99) Calcium Level 8.3 mg/dl (8.5-10.1) 7.8 mg/dl (8.5-10.1) Total Bilirubin 0.5 mg/dl (0.2-1) 0.6 mg/dl (0.2-1) Aspartate Amino Transf (AST/SGOT) 23 U/L (15-37) 26 U/L (15-37) Alanine Aminotransferase (ALT/SGPT) 41 U/L (12-78) 43 U/L (12-78) Alkaline Phosphatase 68 U/L (45-117) 70 U/L (45-117) C-Reactive Protein 9.15 mg/dl (0-0.29) Total Protein 6.8 gm/dl (6.4-8.2) 6.9 gm/dl (6.4-8.2) Albumin 3.0 gm/dl (3.4-5.0) 3.1 gm/dl (3.4-5.0) Globulin 3.8 gm/dl (2.5-4.0) 3.8 gm/dl (2.5-4.0) Albumin/Globulin Ratio 0.8 (0.9-2) 0.8 (0.9-2) Beta-Hydroxybutyric Acid 0.60 mg/dL (0.2-2.81) Bedside Lactic Acid Venous 2.11 mmol/L (0.90-1.70) Bedside Glucose 274 mg/dl (70-99) Estimated Average Glucose 214 mg/dl Hemoglobin A1c 9.1 % (4.5-5.6) Lactic Acid Level 0.9 mmol/L (0.4-2.0) Test 10/01/16 08:55 Bedside Glucose 208 mg/dl (70-99) Micro Results: 09/28 blood x2 NGTD 09/30 blooid x2 pending Recent Pertinent Medications Item Value Date Time Vancomycin HCl 552 ml @ 200 mls/hr 10/01/16 0800 2600 mg/Sodium Q8H/IV 10/01/16 0740 Chloride Piperacillin Sod/ 120 ml @ 30 mls/hr 10/01/16 0300 Tazobactam Sod Q8H/IV 10/01/16 0328 4.5 gm/Dextrose Piperacillin Sod/ 4.5 gm 09/30/16 211 Tazobactam Sod NOW STAT/IV 09/30/16 2147 (Zosyn Iv) Vancomycin HCl 556 ml @ 200 mls/hr 09/30/162118 2800 mg/Sodium ONE STAT/IV 09/30/16 2254 Chloride Assessment & Plan Modified loading dose: vancomycin 2800 mg IV X 1 dose (~18.7 mg/kg), then: vancomycin 2600 mg IV q8h. Goal peak level estimate: between 25-40 mcg/mL. Goal trough level estimate: between 15-20 mcg/mL. Trough has been ordered for: 10/02/16 before midnight dose. Zosyn 4.5 Gm IV over 30 minutes loading dose, then Zosyn 4.5 Gm (infused over 4 hr) every 8 hr for CrCl greater than 20 ml/min. Pharmacy will continue to follow and will adjust dose/frequency as necessary. Thank you
[2016-10-01 10:27] VITALS: Ht 182.9 cm; Wt 150.0 kg
--- NOTE | 2016-10-01 14:06 | Clinical Documentation Query ---
QUERY 1 OF [address] SALGUERO, In your clinical opinion is this patient being managed for: ( ) Sepsis/early sepsis ( ) Other explanation of clinical findings (Please Explain) ( ) Unable to determine (Please Define) ( ) Need to Discuss ( xx ) Not Agree The medical record reflects the following clinical findings, treatment, and risk factors. Clinical Indicators: 35 yo diabetic male presenting with failed outpatient treatment of LLE cellulitis. Presented to ER originally on 09/28 and started treatment for LLE cellulitis with po doxycycline as an outpatient. Afebrile this presentation but has also been using ibuprofen for intermittent fevers. Temp was 38.1 on 09/28. Heart rate 90's presently. Originally WBC 12.74 which has trended down 6.73. Current POC lactic acid 2.11. ESR 24, CRP 9.5. Treatment: IV fluids including bolus, IV zosyn, IV vancomycin, pending blood cultures Risk Factors: diabetes, worsening cellulitis QUERY 2 OF 2 In your clinical opinion does this patient have: ( ) morbid obesity with BMI 44.8 ( ) Other explanation of clinical findings (Please Explain) ( ) Unable to determine (Please Define) ( xx ) Need to Discuss ( ) Not Agree A significantly high (>40) BMI will impact the severity of illness and risk of mortality of your patient. However, the physician must document a correlating diagnosis in the medical record. Please clarify and document your clinical opinion in the progress notes and discharge summary. Terms such as "probable", "suspected", "likely", "questionable", "possible", or "still to be ruled out" are acceptable. IF IN AGREEMENT, YOU MUST DOCUMENT ABOVE DIAGNOSTIC STATEMENT IN DAILY PROGRESS NOTES AND DISCHARGE SUMMARY. This document is not part of the patient's record. Thank You, Freya Jacobs, ANA MARÍA [phone]
[2016-10-01 15:15] VITALS: BP 147/96; PULSE 85; TEMP 36.9; O2SAT 96
[2016-10-01] MEDS ORDERED: VANCOMYCIN TROUGH SCH (23:30)
[2016-10-01 23:45] VITALS: O2SAT 96
[2016-10-02] MEDS: PIPERACILL/TAZOBAC IV 4.5 GM in DEXTROSE 5% 100ML IV SCH ×2 (03:05→10:37)
[2016-10-02] MEDS: HEPARIN SOD 5000 UNIT/0.5 ML CARP SQ SCH (05:46)
[2016-10-02 07:24] VITALS: BP 151/95; PULSE 80; TEMP 36.6; O2SAT 98
[2016-10-02] MEDS: VANCOMYCIN INJ 2,600 MG in SODIUM CHLORIDE 0.9% 500ML 500 ML IV SCH (07:28)
[2016-10-02 08:18] LABS: BASO % 0.1 %; BASO ABS # 0.01 K/uL (0-0.2); COMPLETE YES; EOS % 1.9 %; HEMATOCRIT 41.2 % (42-52); IG% 0.1 %; LYMPH % 20.8 %; LYMPH ABS # 1.62 K/uL (1.2-3.4); MEAN CELL VOLUME 84.6 fL (80-100); MEAN CORPUSCULAR HEMOGLOBIN 29.4 pg (25-34); MEAN CORPUSCULAR HGB CONC 34.7 g/dl (32-36); MEAN PLATELET VOLUME 9.6 fL (7.4-10.4); MONO % 10.3 %; NEUT % 66.8 %; PLATELET COUNT 162 K/uL (130-400); RED BLOOD COUNT 4.87 M/uL (4.7-6.1); WHITE BLOOD COUNT 7.78 K/uL (4.8-10.8)
[2016-10-02] MEDS: ATORVASTATIN 20 MG TAB PO SCH (08:35)
[2016-10-02] MEDS: LISINOPRIL 40 MG TAB PO SCH (08:35)
[2016-10-02] MEDS: FLUTICASONE/SALMETEROL 250/50 (ADVAIR) 14 PUFF/1 INHALER INH SCH (08:35)
[2016-10-02] MEDS: MONTELUKAST SOD 10 MG TAB PO SCH (08:35)
[2016-10-02] MEDS: SERTRALINE HCL 100 MG TAB PO SCH (08:35)
[2016-10-02] MEDS: INSULIN ASPART 100 UNITS/ML 3 ML PEN SC SCH ×2 (08:39→12:51)
[2016-10-02] MEDS ORDERED: INSULIN GLARGINE SOLOSTAR 100 UNITS/ML 3 ML PEN SC SCH (09:00)
[2016-10-02 09:01] LABS: BUN/CREATININE RATIO 9.5 (10-20); CREATININE 0.93 mg/dl (0.60-1.40); POTASSIUM 3.6 mmol/L (3.5-5.1)
[2016-10-02 09:03] LABS: ALB/GLOB RATIO 0.8 (0.9-2)
[2016-10-02] MEDS ORDERED: INSDGIPEN SC (10:39)
--- NOTE | 2016-10-02 10:40 | Discharge Instructions ---
Discharge Instructions Date of Service Oct 02, 2016. Admission Reason for Admission: Left Leg Cellulitis Discharge Discharge Diagnosis / Problem: diabetic lower leg infection, poorly controlled diabetes Discharge Goals Goal(s): Diagnostic testing, Therapeutic intervention Activity Recommendations Activity Limitations: resume your previous activity Please elevate your leg when not active . Current Hospital Diet Patient's current hospital diet: Diabetes Type 2 Diet Discharge Diet Recommended Diet: Diabetes Type 2 Diet Pending Studies Studies pending at discharge: no Laboratory Results Hemoglobin A1c Test 10/01/16 07:08 Range/Units Estimated Average Glucose 214 mg/dl Hemoglobin A1c 9.1 H 4.5-5.6 % Lipid Panel Test 08/28/16 08:01 Range/Units Triglycerides Level 95 0-150 mg/dl Cholesterol Level 141 0-200 mg/dl HDL Cholesterol 32 mg/dl LDL Cholesterol Direct 106 mg/dl Cholesterol/HDL Ratio 4.4 LDL Cholesterol, Calculated mg/dl Medical Emergencies . Who to Call and When: Medical Emergencies: If at any time you feel your situation is an emergency, please call 911 immediately. . Non-Emergent Contact Non-Emergency issues call your: Primary Care Provider Call Non-Emergent contact if: temperature is above 101, your pain is unusual for you . . "Provider Documentation" section prepared by Navin Arizmendi. . VTE Core Measure Inpt VTE Proph given/why not?: Unfractionated heparin SQ
[2016-10-02] MEDS ORDERED: AMOX875T PO (10:41)
[2016-10-02 12:29] VITALS: BP 151/95; PULSE 80; TEMP 36.6; O2SAT 98
[2016-10-02 16:20] LABS: CALCIUM 8.7 mg/dl (8.5-10.1)
--- NOTE | 2016-10-02 16:22 | Discharge Summary ---
Discharge Summary Date of Service Oct 02, 2016. Discharge Summary Admission Date: Oct 01, 2016 at 01:26 Discharge Date: Oct 02, 2016 Discharge Disposition: Home Principal Diagnosis: diabetic lower leg associated cellulitis, poorly controlled diabetes Problems/Secondary Diagnoses: (1) Asthma Status: Chronic (2) Diabetes Status: Chronic (3) Heart disease Status: Chronic (4) Hypertension Status: Chronic (5) Mixed Hyperlipidemia Status: Chronic Consultations: public health educator Medication Reconciliation New Medications: Amoxicillin & Pot Clavulanate (Augmentin 875-125 mg) 1 Tab Tab 875 MG PO BID, #20 TAB Insulin Glargine (Lantus Solostar) 100 Unit/Ml Inj 20 UNIT SC QAM, #1 PEN 6 Refills Continued Medications: Atorvastatin (Lipitor) 20 Mg Tab 20 MG PO DAILY, TAB Dulaglutide (Trulicity) 1.5 Mg/0.5 Ml Inj 1.5 MG INJ WK ADMINISTER ONCE WEEKLY ON WEDNESDAY Fluticasone Prop/Salmeterol (Advair Diskus 250/50 60 Dose) 1 Ea Aerp 1 PUFF INH BID, INHALER Glimepiride (Glimepiride) 4 Mg Tab 8 MG PO QAM, TAB TAKE THIS MEDICATION BEFORE BREAKFAST Lisinopril (Zestril) 40 Mg Tab 40 MG PO DAILY, TAB Loratadine (Claritin) 10 Mg Tab 10 MG PO DAILY PRN for Allergy Symptoms, TAB Montelukast Sodium (Montelukast Sodium) 10 Mg Tab 10 MG PO DAILY, TAB Sertraline (Zoloft) 100 Mg Tab 200 MG PO DAILY, TAB Discontinued Medications: Doxycycline (Monohydrate) (Doxycycline) Unknown Strength Cap 1 CAP PO BID TAKE DIRECTED UNTIL GONE Sitagliptin Phosphate (Januvia) 100 Mg Tab 100 MG PO DAILY, TAB Discharge Exam Review of Systems: Constitutional: No fever, No chills Respiratory: No cough, No sputum Abdomen: No pain, No nausea, No vomiting Integumentary: + problem reported (improving rash but still present) Physical Exam: General Appearance: WD/WN, no apparent distress Neck: supple, no JVD Respiratory/Chest: chest non-tender, lungs clear, normal breath sounds Skin: + pertinent finding (rash has receeded but is present) Hospital Course 35-M Failing outpt treatment of diabetic lower leg infection, history of hypertension, dyslipidemia Left lower extremity cellulitis:has improved - Failed outpatient treatment with doxycycline - Lower extremity x-ray: Negative - Venous Doppler for DVT: Negative - Blood cultures from previous ER visit negative - will be home on augmentin and close followup Hyperglycemia:- public health educator recommends stopping januvia, continuing trulicity, glimeparide, and using once a day lantus encouraged lifestyle changes including exercise Hypertension: lisinopril also for renal protective affects Hyperlipidemia: atorvastatin Total Time Spent: Greater than 30 minutes This includes examination of the patient, discharge planning, medication reconciliation, and communication with other providers. Discharge Instructions Please refer to the electronic Patient Visit Report (Discharge Instructions) for additional information.
[2016-10-02] MEDS ORDERED: VANCOMYCIN TROUGH SCH (23:30)
== END 2016-10-02 13:30 | disposition home or self-care (01) | DRG 638 ==
LOC: C.EDB 19:55 → C.MSN 10-01 01:26 → ENRESERV 10-01 01:59
PROVIDERS: ADMIT Family Medicine; ATTEND Internal Medicine
DX: E11.628 Type 2 diabetes mellitus with other skin complications (principal); L03.116 Cellulitis of left lower limb; E11.65 Type 2 diabetes mellitus with hyperglycemia; I10 Essential (primary) hypertension; E78.5 Hyperlipidemia, unspecified; J45.909 Unspecified asthma, uncomplicated; Z79.4 Long term (current) use of insulin; Z79.51 Long term (current) use of inhaled steroids; Z79.84 Long term (current) use of oral hypoglycemic drugs; Z79.899 Other long term (current) drug therapy

== ENCOUNTER 2016-10-27 08:09 | Emergency (ER) | payer BC ==
[~2016-10-27] VITALS: Ht 190.5 cm; Wt 146.8 kg
[~2016-10-27 08:09] MED LIST changes: +INSDGIPEN SC; -SITA100T3 PO
[2016-10-27 08:11] VITALS: TEMP 37.1; Ht 190.5 cm; Wt 146.8 kg
[2016-10-27] MEDS ORDERED: INSDGIPEN SC (08:23)
[2016-10-27] MEDS ORDERED: FENTANYL CITRATE INJ 50 MCG/1 ML 2 ML VIAL IV STA (08:32)
--- NOTE | 2016-10-27 08:33 | EMERGENCY ROOM VISIT NOTE ---
History Report prepared by Noe: Beth Haynes Under the Supervision of: Dr. Eileen Hardin D.O. First contact with patient: 08:18 Chief Complaint: FLANK PAIN Stated Complaint: RIB/SIDE PAIN FROM FALL History of Present Illness The patient is a 35 year old male who presents to the Emergency Room with complaints of worsening left sided flank pain beginning 3 days prior to arrival. The patient states that he slipped and fell onto a concrete stairway. The edge of the step hit his left flank and he fell over. The patient states he has bruising to his left flank. The patient notes pain with deep breath and pain with bowel movements. He has a history of diabetes and hypertension. The patient has been taking Tylenol which has not relieved his pain. Pt denies headache, change in vision, dizziness, fevers, chest pain, shortness of breath, nausea, vomiting, diarrhea, pain with urination, and melena. Source of History: patient Onset: 3 days [employer] SERVIC[employer] Position: other (left flank) Timing: worsening Note: The patient has bruising to left flank. He notes pain with deep breaths and bowel movements. Review of Systems See HPI for pertinent positives & negatives. A total of 10 systems reviewed and were otherwise negative. Past Medical & Surgical Medical Problems: (1) Asthma (2) Bronchitis (3) Diabetes (4) Fever (5) Heart disease (6) Hypertension (7) Left leg cellulitis (8) Mixed Hyperlipidemia Family History Cancer Diabetes mellitus FH: colon cancer FH: heart disease FHx: lung disease Hypertension Social History Smoking Status: Never Smoker Alcohol Use: occasionally Drug Use: none Marital Status: in relationship Housing Status: lives with significant other Occupation Status: employed Current/Historical Medications Scheduled Atorvastatin (Lipitor), 20 MG PO DAILY Dulaglutide (Trulicity), 1.5 MG INJ WK Fluticasone Prop/Salmeterol (Advair Diskus 250/50 60 Dose), 1 PUFF INH BID Glimepiride (Glimepiride), 8 MG PO QAM Insulin Glargine (Lantus Solostar), 20 UNITS SC QAM Lisinopril (Zestril), 40 MG PO DAILY Montelukast Sodium (Montelukast Sodium), 10 MG PO DAILY Sertraline (Zoloft), 200 MG PO DAILY Scheduled PRN Diazepam (Valium), 5 MG PO Q8 PRN for Pain Loratadine (Claritin), 10 MG PO DAILY PRN for Allergy Symptoms Oxycodone/Acetaminophen 5MG/325MG (Percocet 5MG/325MG), 1-2 TABS PO Q6 PRN for Pain Allergies Coded Allergies: No Known Allergies (Unverified , 10/27/16) Physical Exam Vital Signs Date Time Temp Pulse Resp B/P (MAP) Pulse Ox O2 Delivery O2 Flow Rate FiO2 10/27/16 11:22 97 177/109 96 10/27/16 10:01 96 16 174/108 95 Room Air 10/27/16 08:11 37.1 105 20 176/103 96 Room Air Physical Exam GENERAL: alert, well appearing, well nourished, no distress, non-toxic EYE EXAM: normal conjunctiva, PERRL and EOM's grossly intact OROPHARYNX: no exudate, no erythema, lips, buccal mucosa, and tongue normal and mucous membranes are moist NECK: supple, no nuchal rigidity, no adenopathy, non-tender LUNGS: Clear to auscultation. Normal chest wall mechanics HEART: no murmurs, S1 normal and S2 normal CHEST: Left anterolateral ribs inferiorly with ecchymosis and tenderness at left costal margin. ABDOMEN: abdomen soft, non-tender, normo-active bowel sounds, no masses, no rebound or guarding. BACK: Back is symmetrical on inspection and there is no deformity, no midline tenderness. SKIN: no rashes and no bruising UPPER EXTREMITIES: upper extremities are grossly normal. LOWER EXTREMITIES: No pitting edema. NEURO EXAM: Normal sensorium, cranial nerves II-XII grossly intact, normal speech, no gross weakness of arms, no gross weakness of legs. Medical Decision & Procedures ER Provider Diagnostic Interpretation: CT results have been interpreted by the radiologist and reviewed by me. CT SCAN OF THE CHEST, ABDOMEN, AND PELVIS WITH IV CONTRAST CLINICAL HISTORY: Fall several days ago. Chest wall pain. COMPARISON STUDY: Chest x-ray dated 09/28/2016. TECHNIQUE: Following the IV administration of 120 of Optiray 320, CT scan of the chest, abdomen, and pelvis was performed from the thoracic inlet to the proximal femora. Images are reviewed in the axial, sagittal, and coronal planes. IV contrast was administered without complication. Automated dose control exposure was utilized. CT DOSE: 3944.73 mGy.cm FINDINGS: CHEST: Thyroid: Imaged portions of the thyroid gland are normal in size and attenuation. Thoracic aorta: The thoracic aorta is normal in caliber and demonstrates bovine variant arch anatomy. No dissection is seen. Pulmonary vasculature: The pulmonary trunk is normal in caliber. There are no filling defects identified in the central pulmonary vessels to indicate pulmonary was. Note that this examination was not protocoled for evaluation of the pulmonary arteries. Heart: The heart is normal in size and configuration, and without pericardial effusion. There are scattered but age advanced coronary artery calcifications. Lungs and pleural spaces: There is elevation right hemidiaphragm and bibasilar atelectasis. Trace pleural effusions are noted. No airspace consolidation or pneumothorax is seen. The trachea and central airways are clear. Mediastinum: There is no mediastinal lymphadenopathy. Helga: Clear. Axillae: There is no axillary lymphadenopathy. Bony thorax: There are acute nondistracted left lateral 5th through 9th rib fractures. The remainder the bony thorax appears intact. No lytic or blastic lesions are identified. Soft tissues: Gynecomastia is noted. ABDOMEN AND PELVIS: Liver: The contrast-enhanced liver is enlarged, measuring 22.5 cm in length. The liver demonstrates diffusely diminished attenuation consistent with severe hepatic steatosis. Fatty sparing is seen adjacent to gallbladder fossa. There is no intrahepatic or ductal dilatation. The hepatic veins and portal veins are patent. Gallbladder: Unremarkable. Spleen: The spleen is enlarged, measuring 15.7 cm in length. Pancreas: Unremarkable. Adrenal glands: Unremarkable. 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 There is mild fullness of the lower pole collecting system. No hydronephrosis is seen. The right kidney is normal in appearance. The kidneys enhance symmetrically. Abdominal vasculature: The abdominal aorta is normal in course and caliber. Stomach and bowel: There is a tiny hiatal hernia. The stomach and duodenum otherwise normal in configuration. No bowel obstruction is seen. There is moderate colonic fecal retention. The appendix is well-visualized and normal. Peritoneum: There is no intraperitoneal free air or abdominal ascites. Lymphadenopathy: Prominent mesenteric lymph nodes are not pathologically enlarged by size criteria. No pathologically enlarged lymph nodes are identified in the abdomen or pelvis by size criteria. Pelvic viscera: The bladder, prostate, and seminal vesicles are normal as imaged. Skeletal structures: The lumbosacral spine and bony pelvis appear intact. No lytic or blastic lesions are seen. Large posterior discussed by complex is are seen at L3-L4 and L4-L5. IMPRESSION: 1. There are acute nondistracted left lateral 5th through 9th rib fractures. 2. No additional fracture is identified. 3. There are trace pleural effusions with dependent atelectasis. No airspace consolidation or pneumothorax is seen. 4. There are scattered coronary artery calcifications, advanced for age. 5. There is no evidence of solid organ injury in the abdomen or pelvis. 6. Hepatomegaly and severe hepatic steatosis. 7. Splenomegaly. 8. Additional findings as above. Electronically signed by: Douglas Loja M.D. 10/27/2016 10:44 AM Dictated Date/Time: 10/27/2016 10:[address] SCAN OF THE CHEST, ABDOMEN, AND PELVIS WITH IV CONTRAST CLINICAL HISTORY: Fall several days ago. Chest wall pain. COMPARISON STUDY: Chest x-ray dated 09/28/2016. TECHNIQUE: Following the IV administration of 120 of Optiray 320, CT scan of the chest, abdomen, and pelvis was performed from the thoracic inlet to the proximal femora. Images are reviewed in the axial, sagittal, and coronal planes. IV contrast was administered without complication. Automated dose control exposure was utilized. CT DOSE: 3944.73 mGy.cm FINDINGS: CHEST: Thyroid: Imaged portions of the thyroid gland are normal in size and attenuation. Thoracic aorta: The thoracic aorta is normal in caliber and demonstrates bovine variant arch anatomy. No dissection is seen. Pulmonary vasculature: The pulmonary trunk is normal in caliber. There are no filling defects identified in the central pulmonary vessels to indicate pulmonary was. Note that this examination was not protocoled for evaluation of the pulmonary arteries. Heart: The heart is normal in size and configuration, and without pericardial effusion. There are scattered but age advanced coronary artery calcifications. Lungs and pleural spaces: There is elevation right hemidiaphragm and bibasilar atelectasis. Trace pleural effusions are noted. No airspace consolidation or pneumothorax is seen. The trachea and central airways are clear. Mediastinum: There is no mediastinal lymphadenopathy. Helga: Clear. Axillae: There is no axillary lymphadenopathy. Bony thorax: There are acute nondistracted left lateral 5th through 9th rib fractures. The remainder the bony thorax appears intact. No lytic or blastic lesions are identified. Soft tissues: Gynecomastia is noted. ABDOMEN AND PELVIS: Liver: The contrast-enhanced liver is enlarged, measuring 22.5 cm in length. The liver demonstrates diffusely diminished attenuation consistent with severe hepatic steatosis. Fatty sparing is seen adjacent to gallbladder fossa. There is no intrahepatic or ductal dilatation. The hepatic veins and portal veins are patent. Gallbladder: Unremarkable. Spleen: The spleen is enlarged, measuring 15.7 cm in length. Pancreas: Unremarkable. Adrenal glands: Unremarkable. 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 There is mild fullness of the lower pole collecting system. No hydronephrosis is seen. The right kidney is normal in appearance. The kidneys enhance symmetrically. Abdominal vasculature: The abdominal aorta is normal in course and caliber. Stomach and bowel: There is a tiny hiatal hernia. The stomach and duodenum otherwise normal in configuration. No bowel obstruction is seen. There is moderate colonic fecal retention. The appendix is well-visualized and normal. Peritoneum: There is no intraperitoneal free air or abdominal ascites. Lymphadenopathy: Prominent mesenteric lymph nodes are not pathologically enlarged by size criteria. No pathologically enlarged lymph nodes are identified in the abdomen or pelvis by size criteria. Pelvic viscera: The bladder, prostate, and seminal vesicles are normal as imaged. Skeletal structures: The lumbosacral spine and bony pelvis appear intact. No lytic or blastic lesions are seen. Large posterior discussed by complex is are seen at L3-L4 and L4-L5. IMPRESSION: 1. There are acute nondistracted left lateral 5th through 9th rib fractures. 2. No additional fracture is identified. 3. There are trace pleural effusions with dependent atelectasis. No airspace consolidation or pneumothorax is seen. 4. There are scattered coronary artery calcifications, advanced for age. 5. There is no evidence of solid organ injury in the abdomen or pelvis. 6. Hepatomegaly and severe hepatic steatosis. 7. Splenomegaly. 8. Additional findings as above. Electronically signed by: Douglas Loja M.D. 10/27/2016 10:44 AM Dictated Date/Time: 10/27/2016 10:31 AM Laboratory Results 10/27/16 08:40 Red Blood Count 5.22, Mean Corpuscular Volume 83.1, Mean Corpuscular Hemoglobin 27.2, Mean Corpuscular Hemoglobin Concent 32.7, Mean Platelet Volume 9.3, Neutrophils (%) (Auto) 71.6, Lymphocytes (%) (Auto) 18.8, Monocytes (%) (Auto) 6.9, Eosinophils (%) (Auto) 2.4, Basophils (%) (Auto) 0.2, Neutrophils # (Auto) 5.96, Lymphocytes # (Auto) 1.56, Monocytes # (Auto) 0.57, Eosinophils # (Auto) 0.20, Basophils # (Auto) 0.02 10/27/16 08:40 Test 10/27/16 08:40 White Blood Count 8.32 K/uL (4.8-10.8) Red Blood Count 5.22 M/uL (4.7-6.1) Hemoglobin 14.2 g/dL (14.0-18.0) Hematocrit 43.4 % (42-52) Mean Corpuscular Volume 83.1 fL (80-100) Mean Corpuscular Hemoglobin 27.2 pg (25-34) Mean Corpuscular Hemoglobin Concent 32.7 g/dl (32-36) Platelet Count 172 K/uL (130-400) Mean Platelet Volume 9.3 fL (7.4-10.4) Neutrophils (%) (Auto) 71.6 % Lymphocytes (%) (Auto) 18.8 % Monocytes (%) (Auto) 6.9 % Eosinophils (%) (Auto) 2.4 % Basophils (%) (Auto) 0.2 % Neutrophils # (Auto) 5.96 K/uL (1.4-6.5) Lymphocytes # (Auto) 1.56 K/uL (1.2-3.4) Monocytes # (Auto) 0.57 K/uL (0.11-0.59) Eosinophils # (Auto) 0.20 K/uL (0-0.5) Basophils # (Auto) 0.02 K/uL (0-0.2) RDW Standard Deviation 41.4 fL (36.4-46.3) RDW Coefficient of Variation 13.7 % (11.5-14.5) Immature Granulocyte % (Auto) 0.1 % Immature Granulocyte # (Auto) 0.01 K/uL (0.00-0.02) Prothrombin Time 10.1 SECONDS (9.0-12.0) Prothromb Time International Ratio 0.9 (0.9-1.1) Anion Gap 8.0 mmol/L (3-11) Est Creatinine Clear Calc Drug Dose 166.1 ml/min Estimated GFR () 117.6 Estimated GFR (Non- 101.4 BUN/Creatinine Ratio 11.1 (10-20) Calcium Level 9.0 mg/dl (8.5-10.1) Laboratory results per my review. ECG Indication: other (flank pain) Rate (beats per minute): 94 Rhythm: normal sinus Findings: T-wave inversion (lead 3), no acute ischemic change, no ectopy, other (normal axis, normal interval) ED Course 0825: The patient was evaluated in room B3. A complete history and physical exam was performed. 0832: Fentanyl Inj 100 mcg IV. 1052: I reevaluated the patient. I discussed test results. He states he is feeling better. 1109: Upon reevaluation, the patient is feeling better. I discussed the findings and the treatment plan with the patient. He verbalizes agreement and understanding. He was discharged home. Medical Decision The patient is a 35 year old male who presents to the ED with complaints of left flank pain. Differential diagnoses include major intracranial, cervical, spinal, thoracic, abdominal, pelvic and neurologic injury. Fracture, contusion, sprain, strain, laceration, abrasions included as well. Medication Reconciliation: I attest that I have personally reviewed the patient' s current medication list. Blood pressure screening: Patient was found to have a slightly elevated blood pressure due to circumstances. I do not believe that the patient requires hypertension monitoring. Patient well-appearing here despite complaints. Updated patient all results, medications, need for close follow-up. No other additional traumatic injury noted. Labs otherwise reassuring. Patient with hypertension, but has history, likely more elevated today due to pain. No evidence of flail chest, pneumothorax, pulmonary contusion, cardiac contusion or tamponade, spleen or renal injury. Discussed with patient symptoms to watch and return for, he verbalized understanding was agreeable with plan. Patient given some as premature in addition to pain medication. Impression Primary Impression: Left flank pain Additional Impressions: Rib fractures Fall Contusion Scribe Attestation The scribe's documentation has been prepared under my direction and personally reviewed by me in its entirety. I confirm that the note above accurately reflects all work, treatment, procedures, and medical decision making performed by me. Departure Information Dispostion Home / Self-Care Prescriptions Oxycodone/Acetaminophen 5MG/325MG (PERCOCET 5MG/325MG) Tab 1-2 TABS PO Q6 Y for Pain, #20 TAB Prov: Eileen Hardin, DO 10/27/16 Diazepam (Valium) 5 Mg Tab 5 MG PO Q8 Y for Pain, #15 TAB Prov: Eileen Hardin, DO 10/27/16 Referrals Felix Vargas M.D. (PCP) Forms HOME CARE DOCUMENTATION FORM, IMPORTANT VISIT INFORMATION Patient Instructions My [facility] Additional Instructions Please follow up with your family doctor. You may use Tylenol and ibuprofen during the day as needed for pain. He may also use the muscle relaxer and stronger pain medication as prescribed, however do not take them and drive. Please do not use alcohol all taking the stronger pain medication or muscle relaxer. Please be careful to avoid any additional injury or recurrent fall. If you develop any worsening pain, or coughing up blood, develop fevers, vomiting, dizziness, have difficulty urinating, or you have any other new concerns, please return the emergency room. If you're using an anti- inflammatory during the day, do not take it on an empty stomach and please make sure you're drinking plenty of water. Please also watch for constipation which is a common side effect of the stronger pain medications. Please use the incentive spirometer daily while you are awake as shown to you by the nursing staff. Problem Qualifiers Additional Impressions: Rib fractures Encounter type: initial encounter Rib fracture type: multiple ribs Fracture type: closed Laterality: left Qualified Codes: S22.42XA - Multiple fractures of ribs, left side, initial encounter for closed fracture Fall Encounter type: initial encounter Qualified Codes: W19.XXXA - Unspecified fall, initial encounter Contusion Encounter type: initial encounter Contusion area: thoracic wall Contusion of thoracic wall detail: unspecified area of thoracic wall Qualified Codes: S20.20XA - Contusion of thorax, unspecified, initial encounter
[2016-10-27] MEDS ORDERED: OPTIRAY 320 IV PRN (08:45)
[2016-10-27 09:02] LABS: BASO % 0.2 %; BASO ABS # 0.02 K/uL (0-0.2); COMPLETE YES; EOS % 2.4 %; HEMATOCRIT 43.4 % (42-52); IG% 0.1 %; LYMPH % 18.8 %; LYMPH ABS # 1.56 K/uL (1.2-3.4); MEAN CELL VOLUME 83.1 fL (80-100); MEAN CORPUSCULAR HEMOGLOBIN 27.2 pg (25-34); MEAN CORPUSCULAR HGB CONC 32.7 g/dl (32-36); MEAN PLATELET VOLUME 9.3 fL (7.4-10.4); MONO % 6.9 %; NEUT % 71.6 %; PLATELET COUNT 172 K/uL (130-400); RED BLOOD COUNT 5.22 M/uL (4.7-6.1); WHITE BLOOD COUNT 8.32 K/uL (4.8-10.8)
[2016-10-27 09:18] LABS: INR 0.9 (0.9-1.1); PROTHROMBIN TIME (PATIENT) 10.1 SECONDS (9.0-12.0)
[2016-10-27 09:21] LABS: BUN/CREATININE RATIO 11.1 (10-20); CREATININE 0.97 mg/dl (0.60-1.40); POTASSIUM 3.5 mmol/L (3.5-5.1)
--- NOTE | 2016-10-27 10:45 | DIAGNOSTIC IMAGING REPORT ---
CT SCAN OF THE CHEST, ABDOMEN, AND PELVIS WITH IV CONTRAST CLINICAL HISTORY: Fall several days ago. Chest wall pain. COMPARISON STUDY: Chest x-ray dated 09/28/2016. TECHNIQUE: Following the IV administration of 120 of Optiray 320, CT scan of the chest, abdomen, and pelvis was performed from the thoracic inlet to the proximal femora. Images are reviewed in the axial, sagittal, and coronal planes. IV contrast was administered without complication. Automated dose control exposure was utilized. CT DOSE: 3944.73 mGy.cm FINDINGS: CHEST: Thyroid: Imaged portions of the thyroid gland are normal in size and attenuation. Thoracic aorta: The thoracic aorta is normal in caliber and demonstrates bovine variant arch anatomy. No dissection is seen. Pulmonary vasculature: The pulmonary trunk is normal in caliber. There are no filling defects identified in the central pulmonary vessels to indicate pulmonary was. Note that this examination was not protocoled for evaluation of the pulmonary arteries. Heart: The heart is normal in size and configuration, and without pericardial effusion. There are scattered but age advanced coronary artery calcifications. Lungs and pleural spaces: There is elevation right hemidiaphragm and bibasilar atelectasis. Trace pleural effusions are noted. No airspace consolidation or pneumothorax is seen. The trachea and central airways are clear. Mediastinum: There is no mediastinal lymphadenopathy. Helga: Clear. Axillae: There is no axillary lymphadenopathy. Bony thorax: There are acute nondistracted left lateral 5th through 9th rib fractures. The remainder the bony thorax appears intact. No lytic or blastic lesions are identified. Soft tissues: Gynecomastia is noted. ABDOMEN AND PELVIS: Liver: The contrast-enhanced liver is enlarged, measuring 22.5 cm in length. The liver demonstrates diffusely diminished attenuation consistent with severe hepatic steatosis. Fatty sparing is seen adjacent to gallbladder fossa. There is no intrahepatic or ductal dilatation. The hepatic veins and portal veins are patent. Gallbladder: Unremarkable. Spleen: The spleen is enlarged, measuring 15.7 cm in length. Pancreas: Unremarkable. Adrenal glands: Unremarkable. 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 There is mild fullness of the lower pole collecting system. No hydronephrosis is seen. The right kidney is normal in appearance. The kidneys enhance symmetrically. Abdominal vasculature: The abdominal aorta is normal in course and caliber. Stomach and bowel: There is a tiny hiatal hernia. The stomach and duodenum otherwise normal in configuration. No bowel obstruction is seen. There is moderate colonic fecal retention. The appendix is well-visualized and normal. Peritoneum: There is no intraperitoneal free air or abdominal ascites. Lymphadenopathy: Prominent mesenteric lymph nodes are not pathologically enlarged by size criteria. No pathologically enlarged lymph nodes are identified in the abdomen or pelvis by size criteria. Pelvic viscera: The bladder, prostate, and seminal vesicles are normal as imaged. Skeletal structures: The lumbosacral spine and bony pelvis appear intact. No lytic or blastic lesions are seen. Large posterior discussed by complex is are seen at L3-L4 and L4-L5. IMPRESSION: 1. There are acute nondistracted left lateral 5th through 9th rib fractures. 2. No additional fracture is identified. 3. There are trace pleural effusions with dependent atelectasis. No airspace consolidation or pneumothorax is seen. 4. There are scattered coronary artery calcifications, advanced for age. 5. There is no evidence of solid organ injury in the abdomen or pelvis. 6. Hepatomegaly and severe hepatic steatosis. 7. Splenomegaly. 8. Additional findings as above. Electronically signed by: Douglas oLja M.D. 10/27/2016 10:44 AM Dictated Date/Time: 10/27/2016 10:31 AM
[2016-10-27] MEDS ORDERED: DIAZ-165 PO (11:07)
[2016-10-27] MEDS ORDERED: OXYC-57 PO (11:07)
[2016-10-27 11:22] VITALS: BP 177/109; PULSE 97; O2SAT 96
== END 2016-10-27 11:23 | disposition home or self-care (01) ==
LOC: C.EDB 08:11
DX: R10.9 Unspecified abdominal pain (principal); S22.42XA Multiple fractures of ribs, left side, initial encounter for closed fracture; S20.20XA Contusion of thorax, unspecified, initial encounter; W01.0XXA Fall on same level from slipping, tripping and stumbling without subsequent striking against object, initial encounter; E11.9 Type 2 diabetes mellitus without complications; I11.9 Hypertensive heart disease without heart failure; J45.909 Unspecified asthma, uncomplicated; E78.2 Mixed hyperlipidemia; Z80.9 Family history of malignant neoplasm, unspecified; Z83.3 Family history of diabetes mellitus; Z83.6 Family history of other diseases of the respiratory system; Z79.4 Long term (current) use of insulin; Z79.899 Other long term (current) drug therapy

== ENCOUNTER 2019-06-24 19:44 | Inpatient (IN) ==
[2019-06-24] MEDS ORDERED: SODIUM CHLORIDE 0.9% 1000ML 1,000 ML IV ONE (19:58)
[2019-06-24] MEDS ORDERED: LACTATED RINGER'S 1,000 ML IV ONE (19:58)
[2019-06-24] MEDS ORDERED: LACTATED RINGER'S 500 ML IV ONE (19:58)
[2019-06-24] MEDS ORDERED: CEFEPIME 2,000 MG/20 ML VIAL IV STA (19:59)
[2019-06-24] MEDS ORDERED: VANCOMYCIN HCL 2,750 MG in SODIUM CHLORIDE 0.9% 500 ML IV ONE (20:00)
[2019-06-24] MEDS ORDERED: VANCOMYCIN CONSULT ACTIVE PRN (20:00)
[2019-06-24 20:16] LABS: Basophils # (auto) 0.01 K/uL (0-0.2); Basophils % (auto) 0.1 %; Eosinophils # (auto) 0.13 K/uL (0-0.5); Eosinophils % (auto) 0.7 %; Hematocrit (blood only) 46.8 % (42-52); Hemoglobin 16.2 g/dL (14.0-18.0); Immature Granulocytes # (auto) 0.05 K/uL (0.00-0.02); Immature Granulocytes % (auto) 0.3 %; Lymphocytes # (auto) 1.39 K/uL (1.2-3.4); Lymphocytes % (auto) 7.9 %; Mean Corpuscular Hemoglobin 28.9 pg (25-34); Mean Corpuscular Hgb Conc 34.6 g/dL (32-36); Mean Corpuscular Volume 83.4 fL (80-100); Mean Platelet Volume 9.5 fL (7.4-10.4); Monocytes # (auto) 1.13 K/uL (0.11-0.59); Monocytes % (auto) 6.4 %; Neutrophils # (auto) 14.99 K/uL (1.4-6.5); Neutrophils % (auto) 84.6 %; Platelet Count 182 K/uL (130-400); RDW Coefficient of Variation 13.7 % (11.5-14.5); RDW Standard Deviation 41.7 fL (36.4-46.3); Red Blood Count 5.61 M/uL (4.7-6.1)
--- NOTE | 2019-06-24 20:16 | XRay Report ---
XR chest 1V portable CLINICAL HISTORY: 38 years-old Male presenting with SEPSIS. TECHNIQUE: Portable upright AP view of the chest was obtained. COMPARISON: 09/28/[address] from 10/27/2016. FINDINGS: Image quality degraded by patient body habitus. This mildly limits diagnostic sensitivity the exam. Cardiomediastinal silhouette normal. No focal opacity. No large effusion or pneumothorax. Osseous str uctures normal. Upper abdomen normal. IMPRESSION: 1. No acute cardiopulmonary disease. ACT 112: Negative or not required by law. Electronically signed by: Vaibhav Duarte M.D. 06/24/2019 8:15 PM
[2019-06-24 20:27] LABS: Partial Thromboplastin Ratio 0.9; Prothrombin Time 10.9 Seconds (9.0-12.0)
[2019-06-24 20:34] LABS: Alanine Aminotransferase 73 U/L (12-78); Albumin Level 3.7 gm/dl (3.4-5.0); Aspartate Aminotransferase 41 U/L (15-37); BUN Creatinine Ratio 9.4 (10-20); Blood Urea Nitrogen 10 mg/dl (7-18); Calcium 9.2 mg/dl (8.5-10.1); Carbon Dioxide 26 mmol/L (21-32); Chloride 101 mmol/L (98-107); Creatinine Clr Calc Pharmacy 156.6 ml/min; Est GFR (African American) 108.3; Est GFR (Non-African American) 93.5; Glucose 266 mg/dl (70-99); Magnesium 1.7 mg/dl (1.8-2.4); Potassium 3.7 mmol/L (3.5-5.1); Sodium 133 mmol/L (136-145)
[2019-06-24 20:38] LABS: Albumin Globulin Ratio 0.9 (0.9-2); Alkaline Phosphatase 83 U/L (45-117); Bilirubin,Total 0.5 mg/dl (0.2-1); Globulin 4.2 gm/dl (2.5-4.0); Total Protein 7.9 gm/dl (6.4-8.2); Troponin I < 0.015 ng/ml (0-0.045)
[2019-06-24] MEDS ORDERED: ACETAMINOPHEN 500 MG TAB PO STA (20:44)
--- NOTE | 2019-06-24 20:46 | Emergency Department Note ---
Entered by Nicola Odonnell acting as a scribe for Galo Mortensen M.D. History of Present Illness General Chief complaint: Flu Like Symptoms Stated complaint: LEFT LEG INFECTION, AND FLU SYMPTOMS Time Seen by Provider: 06/24/19 19:51 Source: patient History of Present Illness Onset (ago): day(s) 2 Location: lower extremity (skin infection) Pain Consistency: + other (worsening) Maximum Pain Intensity: 5 Quality: + other (area of infection is red) Exacerbated By: + other (hx of diabetes) Associated symptoms: + denies other symptoms (a sore throat), + fever/chills (fever) and + other (skin redness); no cough and no shortness of breath The patient is a 38 year old M who presents to the Emergency Room with complaints of a worsening skin infection that started 2 days ago. The patient states that 2 days ago, he hit his ellington on the middle rail of his recliner. He notes that the area that he hit was red and was bleeding. He adds that he has a history of diabetes. He states that he gets skin infections due to his history of diabetes. He adds that his last skin infection was 3 years ago. He notes that he felt tired today. He adds that he is currently experiencing a fever. He notes that he has a history of tachycardia. He denies that he is currently experiencing a sore throat, coughing, and shortness of breath. He also denies taking Tylenol or Motrin for his symptoms. He states that he has been diabetic for the past 20 years. He adds that he is currently on metformin and insulin. He notes that his sugar has been in the 250- 300 range recently. He adds that he has been eating and drinking normally. He states that he has a history of MRSA and a staph infection. He denies a history of antibiotic use, being around anyone sick, and recent travel. Home Medications Home Medications Medication Instructions Recorded Confirmed Type blood-glucose meter,continuous #1 ea 11/03/18 05/05/19 Rx loratadine 10 mg tablet 10 mg PO DAILY PRN tab 11/17/18 05/05/19 History blood-glucose meter #1 ea 02/01/19 05/05/19 Rx insulin aspart U-100 100 unit/mL See Rx Instructions SQ UD ml 02/23/19 05/05/19 History (3 mL) subcutaneous pen fluticasone 250 mcg-salmeterol 50 1 puffs INHALATION BID #60 ea 03/03/19 05/05/19 Rx mcg/dose blistr powdr for inhalation insulin regular hum U-500 conc See Rx Instructions SQ BIDM ml 03/09/19 05/05/19 History atorvastatin 20 mg tablet 20 mg PO QPM #90 tab 05/05/19 05/05/19 Rx blood-glucose sensor #3 ea 05/05/19 05/05/19 Rx blood-glucose transmitter #1 ea 05/05/19 05/05/19 Rx dulaglutide 1.5 mg/0.5 mL 1.5 mg SUBCUT WEEKLY #2 ml 05/05/19 05/05/19 Rx subcutaneous pen injector lisinopril 40 mg tablet 40 mg PO DAILY #90 tab 05/05/19 05/05/19 Rx metformin 500 mg tablet,extended 2,000 mg PO QPM #120 tab 05/05/19 05/05/19 Rx release 24 hr montelukast 10 mg tablet 10 mg PO DAILY #90 tab 05/05/19 05/05/19 Rx pen needle, diabetic 32 gauge x #100 ea 05/05/19 05/05/19 Rx 5/32" sertraline 100 mg tablet 200 mg PO DAILY #60 tab 05/05/19 05/05/19 Rx cholecalciferol (vitamin D3) 1,250 1,250 mcg PO WEEKLY #4 cap 05/09/19 Rx mcg (50,000 unit) capsule Allergies Allergy/AdvReac Type Severity Reaction Status Date / Time No Known Drug Allergies Allergy Verified 05/05/19 08:29 Past Med/Surg History Medical History (Updated 06/24/19 @ 20:52 by Nicola Odonnell) Anxiety and depression (Acute) Asthma (Acute) Bronchitis (Resolved) Cellulitis Environmental allergies (Acute) Fracture of rib, single, closed (Acute) Hyperlipidemia (Acute) Hypertension (Acute) Mixed hyperlipidemia (Acute) Type 2 diabetes mellitus, uncontrolled (Acute) Uncontrolled insulin dependent diabetes mellitus (Acute) Surgical History History of tonsillectomy and adenoidectomy History of wisdom tooth extraction Social History Preferred Language: Polish Visual Impairment: No Limitations Hearing Ability: Normal 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 and A total of 10 systems reviewed and were otherwise negative Physical Exam Vital Signs Vital Signs - 24 hr 06/24/19 19:46 06/24/19 19:58 06/24/19 20:26 Temperature 39.3 C H Temperature Source Oral Pulse Rate 138 H 132 H 123 H Pulse Rhythm Regular Respiratory Rate 20 20 20 Respiratory Depth Normal Blood Pressure 177/99 H 171/91 H Blood Pressure Mean 125 108 Pulse Oximetry 97 100 100 Oxygen Delivery Method Room Air Room Air Sepsis Recent Fever Within 48 Hours No Sepsis New/Unexplained Change in Mental Status No Sepsis Action Taken by Nursing No Action Required 06/24/19 20:30 06/24/19 20:45 06/24/19 21:00 Temperature Temperature Source Pulse Rate 120 H 115 H 118 H Pulse Rhythm Respiratory Rate 22 16 23 Respiratory Depth Blood Pressure 180/92 H 175/90 H 170/92 H Blood Pressure Mean 113 114 101 Pulse Oximetry 100 Oxygen Delivery Method Room Air Sepsis Recent Fever Within 48 Hours Sepsis New/Unexplained Change in Mental Status Sepsis Action Taken by Nursing GENERAL: Awake, alert, fatigued-appearing HENT: Normocephalic, atraumatic. Oropharynx unremarkable. EYES: Normal conjunctiva. Sclera non-icteric. NECK: Supple. No nuchal rigidity. RESPIRATORY: Clear to auscultation. No wheezes. Normal respiratory effort. CARDIAC: Tachycardic rate. Normal rhythm. Extremities warm and well perfused. GI: Soft, non-distended. No tenderness to palpation. No rebound or guarding. MUSCULOSKELETAL: Atraumatic. Chest examination reveals no tenderness. LOWER EXTREMITIES: Calves are equal size bilaterally and non-tender. No edema. 14x12 cm left ellington erythema with small central wound. NEURO: Normal sensorium. No sensory or motor deficits noted. No facial droop. SKIN: Warm and dry. No jaundice noted. Course Course 1951: The patient was evaluated in room A2. A complete history and physical exam was performed. 2019: I re-checked the patient and updated him on his test results. 2051: I reviewed the patient's case with Dr. Oralia Degroot, [facility] Hospitalist. She will evaluate the patient for further management. Administered Medications Vancomycin HCl 2,750 mg/ (Sodium Chloride) 555 mls @ 200 mls/hr IV NOW ONE Stop: 06/24/19 22:46 Last Admin: 06/24/19 20:27 Dose: 200 mls/hr Documented by: [id number] Discontinued Medications Acetaminophen (Tylenol) 1,000 mg PO NOW STA Stop: 06/24/19 20:45 Last Admin: 06/24/19 21:11 Dose: 1,000 mg Documented by: [id number] Sodium Chloride (Nss 1000ml) 1,000 mls @ 999 mls/hr IV .Q1H1M ONE Stop: 06/24/19 20:58 Last Infusion: 06/24/19 21:16 Dose: 0 mls/hr Documented by: [id number] Admin: 06/24/19 20:10 Dose: 999 mls/hr Documented by: [id number] Lactated Ringer's (Lr) 1,000 mls @ 999 mls/hr IV .Q1H1M ONE Stop: 06/24/19 20:58 Last Infusion: 06/24/19 21:16 Dose: 0 mls/hr Documented by: [id number] Admin: 06/24/19 20:18 Dose: 999 mls/hr Documented by: [id number] Lactated Ringer's (Lr) 500 mls @ 999 mls/hr IV .Q31M ONE Stop: 06/24/19 20:28 Last Infusion: 06/24/19 20:59 Dose: 0 mls/hr Documented by: [id number] Admin: 06/24/19 20:18 Dose: 999 mls/hr Documented by: [id number] Cefepime HCl (Maxipime) 2,000 mg in 20 mls @ 5 mls/min IV NOW STA; Protocol Stop: 06/24/19 20:02 Last Admin: 06/24/19 20:18 Dose: 5 mls/min Documented by: [id number] Critical Care Time Critical Care Time: Yes Total Critical Care Time: 37 I have personally spent 37 minutes of critical care time in the direct management of this patient. This includes bedside care, interpretation of diagnostic studies, and testing, discussion with consultants, patient, and family members, and other required patient management activities. This 37 minutes is in excess of all separately billable procedures. Medical Decision Making Differential Diagnosis Differential includes viral illness, influenza, streptococcal pharyngitis, meningitis, pneumonia, sinusitis, UTI, pyelonephritis, otitis media. Medical Records Attestation: I reviewed the patient's medical records. Home Medications Current Medication List: was personally reviewed by me Laboratory Data Attestation: I reviewed the patient's lab results. Result diagrams: 06/24/19 20:04 06/24/19 20:04 Lab Results 06/24/19 06/24/19 06/24/19 Range/Units 20:04 20:04 20:04 WBC 17.70 H (4.8-10.8) K/uL RBC 5.61 (4.7-6.1) M/uL Hgb 16.2 (14.0-18.0) g/dL Hct 46.8 (42-52) % MCV 83.4 (80-100) fL MCH 28.9 (25-34) pg MCHC 34.6 (32-36) g/dL RDW Std Deviation 41.7 (36.4-46.3) fL RDW Coeff of Rhonda 13.7 (11.5-14.5) % Plt Count 182 (130-400) K/uL MPV 9.5 (7.4-10.4) fL Immature Gran % (Auto) 0.3 % Neut % (Auto) 84.6 % Lymph % (Auto) 7.9 % Lake % (Auto) 6.4 % Eos % (Auto) 0.7 % Baso % (Auto) 0.1 % Immature Gran # (Auto) 0.05 H (0.00-0.02) K/uL Neut # (Auto) 14.99 H (1.4-6.5) K/uL Lymph # (Auto) 1.39 (1.2-3.4) K/uL Lake # (Auto) 1.13 H (0.11-0.59) K/uL Eos # (Auto) 0.13 (0-0.5) K/uL Baso # (Auto) 0.01 (0-0.2) K/uL PT 10.9 (9.0-12.0) Seconds INR 1.0 (0.9-1.1) APTT 25.0 (21.0-31.0) Seconds PTT Ratio 0.9 Sodium 133 L (136-145) mmol/L Potassium 3.7 (3.5-5.1) mmol/L Chloride 101 (98-107) mmol/L Carbon Dioxide 26 (21-32) mmol/L Anion Gap 6.0 (3-11) BUN 10 (7-18) mg/dl Creatinine 1.02 (0.6-1.4) mg/dl Est Cr Clr Drug Dosing 156.6 ml/min Est GFR ( Amer) 108.3 Est GFR (Non-Af Amer) 93.5 BUN/Creatinine Ratio 9.4 L (10-20) Glucose 266 H (70-99) mg/dl Lactate (0.4-2.0) mmol/L Calcium 9.2 (8.5-10.1) mg/dl Magnesium 1.7 L (1.8-2.4) mg/dl Total Bilirubin 0.5 (0.2-1) mg/dl AST 41 H (15-37) U/L ALT 73 (12-78) U/L Alkaline Phosphatase 83 (45-117) U/L Troponin I < 0.015 (0-0.045) ng/ml Total Protein 7.9 (6.4-8.2) gm/dl Albumin 3.7 (3.4-5.0) gm/dl Globulin 4.2 H (2.5-4.0) gm/dl Albumin/Globulin Ratio 0.9 (0.9-2) Influenza Type A (PCR) (Neg) Influenza Type B (PCR) (Neg) 06/24/19 06/24/19 Range/Units 20:04 Unknown WBC (4.8-10.8) K/uL RBC (4.7-6.1) M/uL Hgb (14.0-18.0) g/dL Hct (42-52) % MCV (80-100) fL MCH (25-34) pg MCHC (32-36) g/dL RDW Std Deviation (36.4-46.3) fL RDW Coeff of Rhonda (11.5-14.5) % Plt Count (130-400) K/uL MPV (7.4-10.4) fL Immature Gran % (Auto) % Neut % (Auto) % Lymph % (Auto) % Lake % (Auto) % Eos % (Auto) % Baso % (Auto) % Immature Gran # (Auto) (0.00-0.02) K/uL Neut # (Auto) (1.4-6.5) K/uL Lymph # (Auto) (1.2-3.4) K/uL Lake # (Auto) (0.11-0.59) K/uL Eos # (Auto) (0-0.5) K/uL Baso # (Auto) (0-0.2) K/uL PT (9.0-12.0) Seconds INR (0.9-1.1) APTT (21.0-31.0) Seconds PTT Ratio Sodium (136-145) mmol/L Potassium (3.5-5.1) mmol/L Chloride (98-107) mmol/L Carbon Dioxide (21-32) mmol/L Anion Gap (3-11) BUN (7-18) mg/dl Creatinine (0.6-1.4) mg/dl Est Cr Clr Drug Dosing ml/min Est GFR ( Amer) Est GFR (Non-Af Amer) BUN/Creatinine Ratio (10-20) Glucose (70-99) mg/dl Lactate 2.0 (0.4-2.0) mmol/L Calcium (8.5-10.1) mg/dl Magnesium (1.8-2.4) mg/dl Total Bilirubin (0.2-1) mg/dl AST (15-37) U/L ALT (12-78) U/L Alkaline Phosphatase (45-117) U/L Troponin I (0-0.045) ng/ml Total Protein (6.4-8.2) gm/dl Albumin (3.4-5.0) gm/dl Globulin (2.5-4.0) gm/dl Albumin/Globulin Ratio (0.9-2) Influenza Type A (PCR) Neg for Influ A (Neg) Influenza Type B (PCR) Neg for Influ B (Neg) Imaging Data Radiologist's Impression: Radiology results as stated below per my review and the radiologist's interpretation: XR chest 1V portable CLINICAL HISTORY: 38 years-old Male presenting with SEPSIS. TECHNIQUE: Portable upright AP view of the chest was obtained. COMPARISON: 09/28/[address] from 10/27/2016. FINDINGS: Image quality degraded by patient body habitus. This mildly limits diagnostic sensitivity the exam. Cardiomediastinal silhouette normal. No focal opacity. No large effusion or pneumothorax. Osseous structures normal. Upper abdomen normal. IMPRESSION: 1. No acute cardiopulmonary disease. ACT 112: Negative or not required by law. Electronically signed by: Vaibhav Duarte M.D. 06/24/2019 8:15 PM ECG Data Attestation: I personally reviewed and interpreted this ECG as follows: Indication: + other (skin infection ) Rate (beats per minute): 127 Rhythm: + sinus tachycardia ECG [place]: + Normal ECG ST segments: no ST depression and no ST elevation ECG Findings: no PVCs Blood Pressure Blood Pressure Findings: Elevated blood pressure Blood Pressure Disposition: further management by hospitalist TOM Narrative Patient is a 38-year-old gentleman history of MRSA, cellulitis, poorly controlle d diabetes, asthma presenting today complaining of 2 days of worsening area of erythema and wound on his left ellington. States he bumped it on in a recliner since and now has expanding redness. Outlined earlier and over the last several hours this is expanded beyond that. Reports feeling somewhat flulike with fevers and some fatigue over the last several hours. Febrile tachycardic upon arrival. C oncern for evolving left skin cellulitis. Sepsis alert called and cultures obtained. Given history given cefepime and vancomycin. Given IV fluid. Cellulitis left ellington was outlined. Patient has significant leukocytosis. Lactate at 2.0. Mild hyperglycemia of 266 and consideration of his poorly controlled diabetes. Given Tylenol. Given his poorly controlled diabetes and vital sign abnormalities believe he requires further observation here in the hospital. Discussed with hospitalist. Impression & Plan Sepsis, Cellulitis of left lower leg, Hyperglycemia due to type 2 diabetes mellitus Discharge Plan Visit Data Chief Complaint: Flu Like Symptoms Stated Complaint: LEFT LEG INFECTION, AND FLU SYMPTOMS ED Provider: Galo Mortensen Discharge Problem: Sepsis, Cellulitis of left lower leg, Hyperglycemia due to type 2 diabetes mellitus Patient Disposition: Admitted As Inpatient Forms Stand Alone Forms: My [facility] Prescriptions Prescriptions: No Action (DME) blood-glucose meter [OneTouch Verio IQ Meter] kit See Dose Instructions .ROUTE .MEDSUPPLY Qty: 1 RF: 0 fluticasone propion-salmeterol 250-50 mcg/dose blister with device 1 puffs inhalation BID Qty: 60 RF: 3 Humulin R U-500 (Conc) Kwikpen 500 unit/mL (3 mL) insulin pen See Rx Instructions SQ BIDM RF: 0 cholecalciferol (vitamin D3) 1,250 mcg (50,000 unit) capsule 1,250 mcg PO WEEKLY Qty: 4 RF: 5 atorvastatin 20 mg tablet 20 mg PO QPM Qty: 90 RF: 3 (DME) Dexcom G6 Sensor Device See Dose Instructions .ROUTE .MEDSUPPLY Qty: 3 RF: 4 (DME) Dexcom G6 Transmitter Device See Dose Instructions .ROUTE .MEDSUPPLY Qty: 1 RF: 4 dulaglutide 1.5 mg/0.5 mL pen injector 1.5 mg subcut WEEKLY Qty: 2 RF: 5 lisinopril 40 mg tablet 40 mg PO DAILY Qty: 90 RF: 3 metformin 500 mg tablet extended release 24 hr 2,000 mg PO QPM Qty: 120 RF: 5 montelukast 10 mg tablet 10 mg PO DAILY Qty: 90 RF: 3 (DME) pen needle, diabetic [BD Ultra-Fine Janice Pen Needle] 32 gauge x 5/32" needle See Dose Instructions .ROUTE .MEDSUPPLY Qty: 100 RF: 5 sertraline 100 mg tablet 200 mg PO DAILY Qty: 60 RF: 5 loratadine 10 mg tablet 10 mg PO DAILY PRN (Reason: allergy symptoms) RF: 0 (DME) Dexcom G6 Ssrs Developer misc See Dose Instructions .ROUTE .MEDSUPPLY Qty: 1 RF: 0 Novolog Flexpen U-100 Insulin 100 unit/mL (3 mL) insulin pen See Rx Instructions SQ UD RF: 0 Referrals Referrals: Erendira Nayak MD [Primary Care Provider] - Discharge Problem: Sepsis Qualifiers: Sepsis type: sepsis due to unspecified organism Sepsis acute organ dysfunction status: unspecified Qualified Code(s): A41.9 - Sepsis, unspecified organism Hyperglycemia due to type 2 diabetes mellitus Qualifiers: Diabetes mellitus ferry terminal agent insulin use: with alf use Qualified Code(s): E11.65 - Type 2 diabetes mellitus with hyperglycemia The scribe's documentation has been prepared under my direction and personally reviewed by me in its entirety. I confirm that the note above accurately reflects all work, treatment, procedures, and medical decision making performed by me.
[2019-06-24 21:10] LABS: Influenza A virus by PCR Neg for Influ A (Neg); Influenza B virus by PCR Neg for Influ B (Neg)
--- NOTE | 2019-06-24 21:45 | History & Physical Report ---
Date of Service June 24, 2019 Assessment & Plan (1) Sepsis: Yomi Groves is a 38 year old man with a history of DMII (poorly controlled), HTN, HLD, Asthma, depression, and anxiety who is here today with LLL cellulits Sepsis Tachycardic, lactate of 2, febrile to 39.7 no hypotension Infectious source is left lower limb cellulitis Given 2.5 L fluid in emergency department Will continue Vancomycin and start patient on zosyn Blood cultures drawn LLL cellulitis Secondary to puncture wound No current sign of any nec fasc, no crepitus, though rash is spreading quickly Will continue to monitor closely current extent is outlined Will initiate patient on broad coverage with vanc and zosyn in this patient with sepsis, previous MRSA, and poorly controlled diabetic lower limb wound to cover for pseudomonas/anaerobic coverage MRSA swab pending can de escalate coverage as tolerated DMII Poorly controlled he tells me his usual sugars are usuallyin 200's and 300's pharmacy consulted for glycemic management Last A1C 9.9 discussed the importance of control with patient [employer] consulted, inclusion special educator consulted At high risk for complications from his diabetes given his obesity and multiple cellulitic infections HTN No hypotension at this time, will continue patient's home lisinopril 40 mg Will d/c if patients blood pressure drops HLD Will continue home atorvastatin Ashtma Not in acute exacerbation patient feels he is at baseline Continue home montelukast and advair, albuterol prn Hypomagnesemia Will give one time mag supplementation. Contact Precautions HIstory of MRSA nasal swab pending DVT PPx: Lovenox F/E/N: Normal Saline 125 mls/hour DIspo: Med Surg, can de-escalate abx and transition to oral as his vitals stabilize and pending culture results. (2) Cellulitis of left lower leg: (3) Hyperglycemia due to type 2 diabetes mellitus: (4) Anxiety and depression: (5) Asthma: (6) Environmental allergies: (7) Fracture of rib, single, closed: (8) Hyperlipidemia: (9) Hypertension: History of Present Illness Chief Complaint: Cellulitis Left lower limb Primary Care Provider: Erendira Nayak MD Yomi Groves is a 38 year old man with a past medical history poorly controlled type II diabetes on insulin, hyperlipidemia, hypertension, ashtma, anxiety and depression who is here today with a left lower limb skin infection. He tells me that on Wednesday of this week he walked into a metal portion of a recliner chair which resulted in a puncture wound of the left lower limb. The next day he noticed a red tender rash around the wound, this continued to spread and yesterday the patient started to have fevers and chills. Patient has had cellulitis in the past and he marked the extent of the rash on his leg with a marker earlier today. By tonight he continued to have fevers and chills and noticed that it had spread about an inch and a half past his markings earlier in the day so he decided to come in. He is having very mild pain made worse by palpation and fevers and chills otherwise he denies any symptoms including chest pain, shortness of breath, cough, URI symptoms, Abdominal pain, nausea vomiting or diarrhea. He has no calf pain, no difficulty walking, and no other pain besides his anterior left leg. He denies any allergies to any antibiotics that he is aware of. He lives at home with his and 4 year old son. His is currently 10 weeks , no one else is sick, no recent travel. Allergies Allergy/AdvReac Type Severity Reaction Status Date / Time No Known Drug Allergies Allergy Verified 05/05/19 08:29 Home Medications Home Medications Medication Instructions Recorded Confirmed Type loratadine 10 mg tablet 10 mg PO DAILY PRN tab 11/17/18 06/24/19 History atorvastatin 20 mg tablet 20 mg PO QPM #90 tab 05/05/19 06/24/19 Rx dulaglutide 1.5 mg/0.5 mL 1.5 mg SUBCUT WEEKLY #2 ml 05/05/19 06/24/19 Rx subcutaneous pen injector lisinopril 40 mg tablet 40 mg PO DAILY #90 tab 05/05/19 06/24/19 Rx metformin 500 mg tablet,extended 2,000 mg PO QPM #120 tab 05/05/19 06/24/19 Rx release 24 hr montelukast 10 mg tablet 10 mg PO DAILY #90 tab 05/05/19 06/24/19 Rx cholecalciferol (vitamin D3) 1,250 1,250 mcg PO WEEKLY #4 cap 05/09/19 06/24/19 Rx mcg (50,000 unit) capsule fluticasone propion-salmeterol 1 puffs INHALATION BID PRN 06/24/19 06/24/19 History insulin aspart U-100 [Novolog 0 unit SUBCUT TID PRN 06/24/19 06/24/19 History Flexpen U-100 Insulin] insulin regular hum U-500 conc 60 - 80 unit SUBCUT QPM 06/24/19 06/24/19 History [Humulin R U-500 (Conc) Kwikpen] insulin regular hum U-500 conc 120 - 140 unit SUBCUT QAM 06/24/19 06/24/19 History [Humulin R U-500 (Conc) Kwikpen] sertraline 200 mg PO QAM 06/24/19 06/24/19 History Past Med/Surg History Medical History (Updated 06/25/19 @ 16:39 by Douglas Benson PA-C) Anxiety and depression (Acute) Asthma (Acute) Bronchitis (Resolved) Cellulitis Environmental allergies (Acute) Fracture of rib, single, closed (Acute) Hyperlipidemia (Acute) Hypertension (Acute) Mixed hyperlipidemia (Acute) Morbid obesity Type 2 diabetes mellitus, uncontrolled (Acute) Uncontrolled insulin dependent diabetes mellitus (Acute) Surgical History History of tonsillectomy and adenoidectomy History of wisdom tooth extraction Social History Preferred Language: Sami Communication Ability: Effective Visual Impairment: No Limitations Hearing Ability: Normal Station Examiner Required: No Beliefs That Will Affect Care: None marital status: Current Living Situation: Spouse and Family current occupational status: employed 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 [employer] Other Information That Helps Us Care for You: No Feels Safe at Home: Yes Safety Concerns: Feels Safe At This Time Smoking Status: Former smoker Age Started Using Tobacco: 18 ; Age Quit Using Tobacco: 23 ; packs per day: 0.5 ; Cigarettes Per Day: 10 ; Smoking End Date: 15 years ago ; Number of Years Since Quit: 15 ; Second Hand Exposure: No ; Hx Alcohol Use: Yes Alcohol Intake Frequency: Rarely Hx Substance Use: No Childhood Exposure to Second-Hand Smoke: No Review of Systems Constitutional: + fever and + chills; no fatigue and no weakness Eyes: no problem reported Ear, Nose, Mouth, Throat: no problem reported Respiratory: no cough, no dyspnea and no wheezing Cardiovascular: no chest pain, no dyspnea, no lightheadedness and no calf pain Gastrointestinal: no abdominal pain, no nausea, no vomiting, no constipation and no diarrhea/loose stools Genitourinary: no dysuria Integumentary: As above Physical Exam Constitutional: Well developed, obese, 38 year old man appearing stated age resting comfortably in bed in no apparent distress Eyes: PERRL, conjunctivae normal, anicteric sclerae ENMT: external ear and nose normal, oropharynx normal Respiratory: normal respiratory effort, lungs clear to auscultation Cardiovascular: Tachycardic, regular rhythm, no murmurs rubs skips or gallops, no lower limb edema, peripheral pulses intact and equal Gastrointestinal (Abdomen): normal bowel sounds, soft, nontender, no hepatosplenomegaly Skin: Left lower leg: Erythematous warm tender rash around central healed puncture wound with scab. No subcutaneous crepitus appreciated no streaking from lesion, no pain proximal to erythema Measuring about 10 cm by 5 cm, Patient's border from earlier today drawn about 3 cm inside of current demarcated boundary drawn in ED. Results & Data Vital Signs (Past 12 Hours) Vital Signs Temp Pulse Resp BP Pulse Ox 06/24/19 21:00 118 H 23 170/92 H 06/24/19 20:45 115 H 16 175/90 H 06/24/19 20:30 120 H 22 180/92 H 100 06/24/19 20:26 123 H 20 171/91 H 100 06/24/19 19:58 132 H 20 100 06/24/19 19:46 39.3 C H 138 H 20 177/99 H 97 Supervising Physician Co-Signing Physician Notes Patient seen and examined on date of admission 06/24/19, chart reviewed, case discussed with Dr. Vazquez and I agree with his assessment and plan as documented above. Briefly, patient is a 38yo C male with history of poorly controlled DM (Last AIC=9.9), HTN, HLP presenting with LLE cellulitis after a puncture wound. Patient febrile, tachycardic on arrival but non-toxic in appearance. On exam he is febrile, tachycardic, nontoxic HEENT - NC/AT, PERRL, MMM, neck supple Heart - +S1/S2, regular, tachycardic, no m/r/g Lungs- CTA Abd - +BS, soft, NT/ND Ext - +redness/warmth/tenderness surrounding LLE wound with eschar. No crepitus/bullae/lymphangitic streaking. Labs and images reviewed. Assessment/Plan: 38yo C male with poorly controlled DM, HTN, HLP, cellulitis -Broad spectrum abx with Vanc/Zosyn for now -Continue to monitor area of redness -Briefly discussed diabetic control with patient, focusing on diet and carb restriction. Patient to see diabetes educator and Nutrition -Remainder of plan as above Resident Activity Tracking Resident Involvement: Resident Care Provided Care Provided: Adult Hospital Medicine (1) Hyperglycemia due to type 2 diabetes mellitus Diabetes mellitus fdc insulin use: with continuous churn buttermaker use Qualified Code(s): E11.65 - Type 2 diabetes mellitus with hyperglycemia; Z79.4 - [facility] (current) use of insulin (2) Sepsis Sepsis acute organ dysfunction status: unspecified Sepsis type: sepsis due to unspecified organism Qualified Code(s): A41.9 - Sepsis, unspecified organism
[2019-06-24 22:02] LABS: iSTAT Creatinine 0.8 mg/dl (0.6-1.3); iSTAT Hemoglobin 16.7 g/dl (14.0-18.0); iSTAT Ionized Calcium 1.17 mmol/l (1.12-1.32); iSTAT Potassium 3.7 mmol/L (3.3-5.0)
[2019-06-24 22:03] LABS: Appearance Urine Clear (Clear); Bilirubin Urine Negative (Negative); Blood Urine Negative (Negative); Color Urine Yellow; Glucose Urine UA 2+ (Negative); Ketones Urine Negative (Negative); Leukocyte Esterase Urine Negative (Negative); Nitrite Urine Negative (Negative); Protein Urine Negative (Negative); Specific Gravity Urine 1.014 (1.000-1.030); Urobilinogen Urine Negative (Negative); pH Urine 7.5 (4.5-7.5)
[2019-06-24] MEDS ORDERED: ONDANSETRON INJ 2 MG/ML 2 ML VIAL ONE (22:14)
[2019-06-24] MEDS ORDERED: ONDANSETRON INJ 2 MG/ML 2 ML VIAL IV STA (22:17)
[2019-06-24] MEDS ORDERED: IBUPROFEN 600 MG TAB PO ONE (22:22)
[2019-06-24] MEDS ORDERED: ONDANSETRON INJ 2 MG/ML 2 ML VIAL IV PRN (22:44)
[2019-06-24] MEDS ORDERED: LORATADINE 10 MG TAB PO PRN (22:44)
[2019-06-24] MEDS ORDERED: PIPERACILLIN/TAZOBACTAM 3.375 GM in DEXTROSE 5% 100 ML IV SCH (22:44)
[2019-06-24] MEDS ORDERED: PIPERACILL/TAZOBAC CONSULT ACTIVE PRN (22:44)
[2019-06-24] MEDS ORDERED: POLYETHYLENE (MIRALAX) 17 GM PACK PO PRN (22:44)
[2019-06-24] MEDS: SODIUM CHLORIDE 0.9% 1000ML 1,000 ML IV SCH (22:51)
[2019-06-24] MEDS ORDERED: PHARMACY GLYCEMIC MGMT CONSULT PRN (22:54)
[2019-06-24] MEDS ORDERED: DEXTROSE 50% 50 ML SYRINGE IV PRN (23:45)
[2019-06-24] MEDS ORDERED: GLUCOSE 40% GEL 15 GM TUBE PO PRN (23:45)
[2019-06-24] MEDS ORDERED: CARBOHYDRATES FOR HYPOGLYCEMIA PO PRN (23:45)
[2019-06-24] MEDS ORDERED: GLUCAGON FOR INJ 1 MG VIAL SQ PRN (23:45)
[2019-06-24] MEDS ORDERED: GLUCOSE 10 TABS/TUBE PO PRN (23:45)
[2019-06-25] MEDS ORDERED: PIPERACILLIN/TAZOBACTAM 4.5 GM in DEXTROSE 5% 100 ML IV ONE
[2019-06-25] MEDS ORDERED: MAGNESIUM OXIDE 400 MG TAB PO STA (01:07)
[2019-06-25] MEDS ORDERED: INSULIN ASPART 100 UNITS/ML 3 ML PEN SC SCH (04:00)
[2019-06-25] MEDS ORDERED: LANTUS PER UNIT CHARGE SQ ONE (04:15)
[2019-06-25] MEDS: VANCOMYCIN HCL 1,750 MG in SODIUM CHLORIDE 0.9% 500 ML IV SCH ×2 (04:20→13:08)
[2019-06-25] MEDS: PIPERACILLIN/TAZOBACTAM 4.5 GM in DEXTROSE 5% 100 ML IV SCH ×3 (05:35→21:14)
[2019-06-25] MEDS: SODIUM CHLORIDE 0.9% 1000ML 1,000 ML IV SCH ×3 (07:12→22:51)
[2019-06-25] MEDS ORDERED: HumuLIN-R U-500 45 UNITS in SYRINGE 0 ML SC ONE (07:30)
--- NOTE | 2019-06-25 07:51 | Pharmacy Report ---
Glycemic Control Consultation - Date of Service June 25, 2019 - Scope Scope: Glycemic Pharmacist consulted for glycemic control and to write orders per [facility] inpatient glycemic control protocol. - Objective Weight: 152.4 kg Accuchecks BSG (last 24hrs): 06/24/19 06/24/19 06/24/19 20:04 20:13 23:33 Glucose 266 H POC Glucose 176 H POC Glucose (other) 272 H 06/25/19 03:58 Glucose POC Glucose 224 H POC Glucose (other) Laboratory Data (last 24hrs): 06/24/19 20:04 Potassium 3.7 Carbon Dioxide 26 Anion Gap 6.0 Creatinine 1.02 Est Cr Clr Drug Dosing 156.6 - Recent Pertinent Medications Outpatient Anti-diabetic Regimen: * U-500 insulin: 120u QDB and 80u QDD. Trulicity on Wednesday * A1c = 9.9 % 05/05/2019 - Assessment & Plan Assessment & Plan: ASSESSMENT: * Pt is a 38yo M type II diabetic. PMHx consistent with HLD, HTN, MDD, BMI >40, among others. His outpt glycemic management is poor as evidenced by his A1C of 9.9%. Pw cellulitis/sepsis. He is receiving vancomycin and zosyn. He is ordered a diet. * Historically, pt's maintained on U-500 require much less insulin whilst hospitalized. Please see plan detailed below: PLAN FOR INPATIENT GLYCEMIC CONTROL: * Basal insulin * Lantus 26u given overnight around 0430 * We will provide U-500 45u with breakfast * Dinner U-500 dose to be determined later today * Bolus insulin * NovoLog per scale ACHS or Q6hrs while NPO * Goal Range: Low 120 mg/dL - High 160 mg/dL * Correction Factor: 15 mg/dL/unit * Nutritional / Prandial insulin per carb ratio of 1 unit per 5 grams CHO consumed * Please note that the plan above was derived based on current level of insulin resistance and hospital stress. These recommendations are appropriate for inpatient admission only. Plan of care upon discharge will need to be reassessed to avoid potential outpatient hypo/hyperglycemia. Thank you.
[2019-06-25] MEDS: lisinopriL 40 MG TAB PO SCH (08:51)
[2019-06-25] MEDS: MONTELUKAST SODIUM 10 MG TABLET PO SCH (08:51)
[2019-06-25] MEDS: FLUTICASONE/VILANTEROL 200/25MCG 14 PUFFS/INHALER INH SCH (08:52)
[2019-06-25] MEDS: SERTRALINE HCL 100 MG TABLET PO SCH (08:52)
[2019-06-25] MEDS: INSULIN ASPART 100 UNITS/ML 3 ML PEN SC SCH ×5 (08:57→21:37)
[2019-06-25] MEDS: ENOXAPARIN INJ 40 MG/0.4 ML SYR SQ SCH (08:59)
[2019-06-25 09:06] LABS: BUN Creatinine Ratio 13.4 (10-20); Creatinine Clr Calc Pharmacy 192.5 ml/min; Est GFR (African American) 130.3; Est GFR (Non-African American) 112.4; Magnesium 1.8 mg/dl (1.8-2.4); Potassium 3.5 mmol/L (3.5-5.1)
--- NOTE | 2019-06-25 09:53 | Pharmacy Report ---
Pharmacy Abx Initial Consult - Date of Service June 25, 2019 - Pharmacy Dosing Scope Date of Consult: 06/24/19 Consultation requested by: Dr. Vazquez Pharmacy is consulted to initiate vancomycin and Zosyn IV dosing therapy, order appropriate labs and adjust drug dose/frequency. - Subjective The patient is a 38 year old M admitted on 06/24/19 21:34. - Objective Height: 6 ft 3 in Weight: 152.4 kg Vital Signs (Past 12hrs): Vital Signs Temp Pulse Pulse Pulse Pulse Resp BP 06/25/19 07:50 36.6 C 91 H 20 06/25/19 01:46 36.8 C 100 H 06/25/19 00:00 38.3 C H 122 H 20 06/24/19 22:35 39.7 C H 124 H 18 06/24/19 22:20 39.7 C H 128 H 20 06/24/19 22:15 126 H 30 H 158/86 H 06/24/19 22:09 124 H 24 171/91 H 06/24/19 22:00 132 H 27 H 180/106 H 06/24/19 21:47 123 H 20 177/99 H 06/24/19 21:00 118 H 23 170/92 H BP BP Pulse Ox 06/25/19 07:50 138/83 97 06/25/19 01:46 06/25/19 00:00 145/80 H 94 06/24/19 22:35 157/99 H 96 06/24/19 22:20 158/86 H 99 06/24/19 22:15 06/24/19 22:09 06/24/19 22:00 06/24/19 21:47 06/24/19 21:00 Lab Results (24hrs): Laboratory Tests (24 Hours) 06/25/19 06/25/19 06/24/19 08:37 08:37 20:04 WBC Neut # (Auto) Creatinine 0.83 1.02 Est Cr Clr Drug Dosing 192.5 156.6 Procalcitonin 0.35 06/24/19 20:04 WBC 17.70 H Neut # (Auto) 14.99 H Creatinine Est Cr Clr Drug Dosing Procalcitonin Micro Results: 06/24/19 20:05 Aerobic Blood Culture - Pending Blood Anaerobic Blood Culture - Pending 06/24/19 20:04 Aerobic Blood Culture - Pending Blood Anaerobic Blood Culture - Pending - Risk Factors for Resistance * History of poorly controlled diabetes mellitus * Per H&P, patient has history of MRSA - Assessment & Plan Assessment 38 year old M ordered empiric vancomycin and Zosyn for treatment of sepsis secondary to LLL cellulitis. On presentation, patient found to be febrile and tachycardia with leukocytosis (17.7). Broad spectrum antibiotic therapy appropriate at this time. Blood cultures x 2 pending. Plan Vancomycin IV * Estimated PK Parameters: Vd 0.54 L/kg, Ramez < 0.104 hr-1, t1/2 < 6.6 hr * Loading dose: 2750 mg (18 mg/kg) * Maintenance dose: 1750 mg IV (11 mg/kg) every 8 hours * Goal trough level for sepsis : 15 to 20 mcg/mL * Trough/Random level ordered for 06/25/19 @1930 * A less than traditional dose and/or extended dosing interval has/have been selected due to likelihood of drug accumulation in obese patient/patient with h/o CKD. Piperacillin/tazobactam * 4.5 g bolus administered over 30 minutes, then 4.5 g IV extended infusion every 8 hours for CrCl greater than 20 mL/min * Aggressive dosing selected due to critically ill status/BMI 35 or more/history of cystic fibrosis. Pharmacy will continue to follow and will adjust dose/frequency as necessary. Thank you.
[2019-06-25] MEDS: ACETAMINOPHEN 325 MG TAB PO PRN (15:27)
--- NOTE | 2019-06-25 16:40 | Hospitalist Progress Note ---
Date of Service June 25, 2019 Assessment & Plan (1) Cellulitis of left lower leg: Secondary to a puncture wound of the left leg with a recliner at home Day #2 of cefepime, vancomycin, and Zosyn Blood cultures x2 are currently pending Patient with a T-max of 39.7 on admission; currently afebrile since this morning at 01:46 Patient continued be tachycardic with hypertension Continue IV antibiotics pending culture results Patient received his last tetanus vaccination 11/03/2018 (2) Hyperglycemia due to type 2 diabetes mellitus: Hemoglobin A1c is currently pending Most recent A1c 9.9 on 04/2018 Diabetic regimen modified by Dr. Benson at the patient's last primary care visit to include: * Lantus 50 units daily * Trulicity * Metformin ER 2000 mg qpm * Short acting insulin once to twice daily (3) Hypertension: Patient is taking lisinopril 40 mg p.o. daily at home Continue monitor inpatient (4) Mixed hyperlipidemia: Atorvastatin 20 mg p.o. qpm Continue outpatient monitoring and treatment (5) Asthma: No bronchospasm on exam Oxygenating well on room air Continue ICS/LABA with Breo-ellipta Continue Singulair (6) Morbid obesity: BMI 42.0 kg/m Weight 152.4 kg Discussed need for weight loss with patient. 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 Goldberg's addendum for further recommendations. Admission and Anticipated Discharge Date Admission Date: June 24, 2019 Subjective Attending: Dr. Christo Goldberg Patient seen and examined at bedside. He denies any fever or chills. He states the pain is significantly improved to his left ellington at the site of infection. He has no nausea and vomiting. He is eating well. He has no acute complaints. Review of Systems Review of Systems: All systems reviewed & are unremarkable except as noted in HPI & below Physical Exam Physical Exam: GENERAL : No acute distress EYES: No icterus, gaze conjugate. Pupils equal round and reactive to light NOSE: No evidence of epistaxis MOUTH: No lesions or candidiasis. Mucosa moist NECK: Supple. No stridor LUNGS: CTA B/L, no wheezes, rales or rhonchi. No adventitious breath sounds. Good inspiratory effort. HEART: Regular, rate in the 90s ABDOMEN: Soft, NT, ND, BS Present EXTREMITIES: No LE edema, pedal pulses intact and equal bilaterally. There is a well demarcated area of cellulitis in the left lower extremity. This has a central puncture quyen. Based on marking with a permanent marker, erythema seems to be improved. There is no significant edema around the infection site. There is no oozing or drainage of the wound. NEURO: A&OX3 Results & Data ([facility]) Vital Signs (Past 12 Hours) Vital Signs Temp Pulse Resp BP Pulse Ox 06/25/19 15:25 37.0 C 107 H 22 164/94 H 97 06/25/19 15:12 37.6 C H 06/25/19 12:30 37.2 C 06/25/19 07:50 36.6 C 91 H 20 138/83 97 Laboratory Results 06/24/19 20:04 06/25/19 08:37 Laboratory Tests 06/24/19 06/24/19 06/25/19 20:04 Unknown 08:37 WBC 17.70 H Anion Gap 5.0 Magnesium 1.8 Procalcitonin Influenza Type A (PCR) Neg for Influ A Influenza Type B (PCR) Neg for Influ B 06/25/19 08:37 WBC Anion Gap Magnesium Procalcitonin 0.35 Influenza Type A (PCR) Influenza Type B (PCR) Diagnostic Findings XR chest 1V portable CLINICAL HISTORY: 38 years-old Male presenting with SEPSIS. TECHNIQUE: Portable upright AP view of the chest was obtained. COMPARISON: 09/28/[address] from 10/27/2016. FINDINGS: Image quality degraded by patient body habitus. This mildly limits diagnostic sensitivity the exam. Cardiomediastinal silhouette normal. No focal opacity. No large effusion or pneumothorax. Osseous structures normal. Upper abdomen normal. IMPRESSION: 1. No acute cardiopulmonary disease. ACT 112: Negative or not required by law. Electronically signed by: Vaibhav Duarte M.D. 06/24/2019 8:15 PM PG Care Time/CCT Total # of Minutes Spent Total Time Spent with Patient: Total time spent is greater than 50% in coordination of care (as documented) at patient's floor/unit and/or counseling patient: 30 minutes Coding Level of Care Code 04791 Subseq Hosp Care Lvl 3 Diagnoses Cellulitis of left lower leg L03.116 Hyperglycemia due to type 2 diabetes mellitus E11.65; Z79.4 Diabetes mellitus terminal make up operator insulin use: with terminal make up operator use Hypertension I10 Mixed hyperlipidemia E78.2 Asthma J45.909 Morbid obesity E66.01 DVT prophylaxis Z29.9 (1) Hyperglycemia due to type 2 diabetes mellitus Diabetes mellitus fci insulin use: with fci use Qualified Code(s): E11.65 - Type 2 diabetes mellitus with hyperglycemia; Z79.4 - alf (current) use of insulin
[2019-06-25] MEDS ORDERED: INSULIN HUMAN NPH SC ONE (19:30)
[2019-06-25] MEDS ORDERED: VANCOMYCIN TROUGH ONE (19:30)
--- NOTE | 2019-06-25 19:49 | Billing Data ---
Date of Service June 24, 2019 Coding Level of Care Code 58828 Initial Inpt Care Lvl 3
[2019-06-25] MEDS: IBUPROFEN 600 MG TAB PO PRN (19:53)
[2019-06-25] MEDS: ATORVASTATIN 20 MG TAB PO SCH (19:56)
--- NOTE | 2019-06-25 20:53 | Pharmacy Report ---
Pharmacy Abx Dose Short Note - Date of Service June 25, 2019 - Assessment & Plan Assessment 38 year old M receiving vancomycin and Zosyn for treatment of sepsis from LLL cellulitis Day # 2 of antimicrobial therapy. Plan Vancomycin * Trough level of 9.3 mcg/mL is subtherapeutic. * Continue dose of 1750 mg IV every 8 hours as expect patient to accumulate. * Goal trough level for cellulitis : ~15 mcg/mL * Re-order trough around 0400 dose on 06/27/2019 Pharmacy will continue to follow and will adjust dose/frequency as necessary. Thank you.
[2019-06-25] MEDS ORDERED: VANCOMYCIN HCL 1,750 MG in SODIUM CHLORIDE 0.9% 500 ML IV ONE (21:00)
[2019-06-26] MEDS: VANCOMYCIN HCL 1,750 MG in SODIUM CHLORIDE 0.9% 500 ML IV SCH ×3 (04:56→20:59)
[2019-06-26] MEDS: PIPERACILLIN/TAZOBACTAM 4.5 GM in DEXTROSE 5% 100 ML IV SCH ×3 (05:02→21:05)
[2019-06-26] MEDS: SODIUM CHLORIDE 0.9% 1000ML 1,000 ML IV SCH ×3 (05:03→20:44)
[2019-06-26 06:01] LABS: Est GFR (African American) 143.2; Est GFR (Non-African American) 123.5
[2019-06-26 06:06] LABS: Estimated Average Glucose 249 mg/dl; Hemoglobin A1C 10.3 % (4.5-5.6)
[2019-06-26] MEDS: SERTRALINE HCL 100 MG TABLET PO SCH (08:22)
[2019-06-26] MEDS: MONTELUKAST SODIUM 10 MG TABLET PO SCH (08:22)
[2019-06-26] MEDS: ENOXAPARIN INJ 40 MG/0.4 ML SYR SQ SCH (08:22)
[2019-06-26] MEDS: FLUTICASONE/VILANTEROL 200/25MCG 14 PUFFS/INHALER INH SCH (08:22)
[2019-06-26] MEDS: lisinopriL 40 MG TAB PO SCH (08:23)
[2019-06-26] MEDS: INSULIN ASPART 100 UNITS/ML 3 ML PEN SC SCH ×4 (08:26→21:09)
[2019-06-26] MEDS: INSULIN HUMAN NPH SC SCH ×2 (08:37→17:53)
[2019-06-26] MEDS: IBUPROFEN 600 MG TAB PO PRN ×2 (08:39→23:47)
[2019-06-26 09:25] LABS: Basophils # (auto) 0.01 K/uL (0-0.2); Basophils % (auto) 0.1 %; Eosinophils # (auto) 0.07 K/uL (0-0.5); Eosinophils % (auto) 0.7 %; Hematocrit (blood only) 41.6 % (42-52); Hemoglobin 14.3 g/dL (14.0-18.0); Immature Granulocytes # (auto) 0.02 K/uL (0.00-0.02); Immature Granulocytes % (auto) 0.2 %; Lymphocytes # (auto) 1.13 K/uL (1.2-3.4); Mean Corpuscular Hemoglobin 28.7 pg (25-34); Mean Corpuscular Hgb Conc 34.4 g/dL (32-36); Mean Corpuscular Volume 83.5 fL (80-100); Mean Platelet Volume 9.6 fL (7.4-10.4); Monocytes # (auto) 0.74 K/uL (0.11-0.59); Monocytes % (auto) 7.9 %; Neutrophils # (auto) 7.44 K/uL (1.4-6.5); Neutrophils % (auto) 79.1 %; Platelet Count 137 K/uL (130-400); RDW Coefficient of Variation 13.9 % (11.5-14.5); RDW Standard Deviation 42.3 fL (36.4-46.3); Red Blood Count 4.98 M/uL (4.7-6.1); White Blood Count 9.41 K/uL (4.8-10.8)
[2019-06-26 09:44] LABS: BUN Creatinine Ratio 10.6 (10-20); Calcium 8.5 mg/dl (8.5-10.1); Creatinine Clr Calc Pharmacy 194.8 ml/min; Est GFR (African American) 130.9; Potassium 3.6 mmol/L (3.5-5.1)
--- NOTE | 2019-06-26 10:35 | Pharmacy Report ---
Glycemic Control Progress Note - Date of Service June 26, 2019 - Scope Glycemic Pharmacist consulted for glycemic control to write orders per [facility] inpatient glycemic control protocol. - Objective Accuchecks BSG(last 24 hours):: 06/25/19 06/25/19 06/25/19 12:08 17:16 20:39 Glucose POC Glucose 259 H 161 H 116 H 06/26/19 06/26/19 08:15 09:05 Glucose 230 H POC Glucose 162 H HbA1c:: Hemoglobin A1c 10.3 % (4.5-5.6) H 06/24/19 20:04 - Recent Pertinent Medications The patient is currently receiving: * Basal insulin: LANTUS 26 UNITS SQ x 1 plus U-500 45 units SQ x 1 plus NPH 30 units at dinnertime. * Correctional Insulin: Novolog Correction per scale ACHS Goal Range: Low 120 mg/dL - High 160 mg/dL Correction Factor: 15 mg/dL/unit * Prandial insulin: Per carb ratio of 1 unit per 5 grams CHO consumed - Outpatient Anti-Diabetic Meds Humulin U-500 120 units at breakfast and 80 units at dinner Trulicity 1.5 mg weekly (on Wednesday) - Assessment & Plan ASSESSMENT: * See progress note from 06/25/2019 for more background info, in short: * Pt receiving SQ basal bolus insulin regimen for hyperglycemia secondary to baseline DM (outpatient regimen on hold). * Patient is currently receiving an average of 141 units of insulin per day * 101 units of basal insulin * 40 units of prandial/correctional insulin * BSGs ranging 116 - 259 mg/dl over the past 24hrs * Changes needed to insulin regimen: * AM Fasting BSG = 162 mg/dl. This is slightly above goal range for patient based on inpatient targets and co-morbidities. The patient received a lot of basal insulin yesterday because he received several different types. Will change to one - NPH. Do not believe that patient requires U-500 while hospitalized. Increase doses from yesterday by 20% to 55 units in morning and 45 units in evening. Do not have to subtract meal coverage from U-500 dose since patient was receiving CR yesterday. * Post-prandial BSGs seem reasonable. May require tightening but monitor. * Total daily dose = ~100 units. Adjusted. (represents half of home dose) PLAN FOR INPATIENT GLYCEMIC CONTROL: * INCREASING NPH to 55 units in morning and 40 units SQ in the evening. * Continuing correction factor of 15 mg/dl/unit * Continuing carb ratio of 1 unit per 5 grams CHO consumed * Continuing goal range of Low 110 mg/dL - High 140 mg/dL * Please note that the plan above was derived based on current level of insulin resistance and hospital stress. These recommendations are appropriate for inpatient admission only. Plan of care upon discharge will need to be reassessed to avoid potential outpatient hypo/hyperglycemia. Thank you.
--- NOTE | 2019-06-26 12:06 | Ultrasound Report ---
US extremity nonvascular CLINICAL HISTORY: 38 years-old Male presenting with erythema of the left lower leg at site of injury, concern for abscess. TECHNIQUE: Real-time grayscale ultrasound imaging of the left lower leg was performed for a focused e valuation at the site of clinical concern. Color Doppler ultrasound imaging was also performed. COMPARISON: None. FINDINGS: At the site of clinical interest in the left lower leg, diffuse subcutaneous edema with diffuse hyper echogenicity and infiltrated appearance of the subcutaneous fat. Overlying skin thickening. Hyperemia of this region. Dilated lymphatics. Normal appearance of the subjacent musculature. No focal collect ion. There is a focal defect in the cutis with a tract extending into the subcutaneous fat in the dis boogie left lower leg at the site of the puncture wound. IMPRESSION: 1. No abscess though there is a tract evident at the site of the puncture wound. 2. Evidence of severe cellulitis. ACT 112: Negative or not required by law. Electronically signed by: Vaibhav Duarte M.D. 06/26/2019 12:05 PM
--- NOTE | 2019-06-26 13:15 | Electrocardiogram Report ---
Test Reason : Blood Pressure : / mmHG Vent. Rate : 127 BPM Atrial Rate : 127 BPM P-R Int : 158 ms QRS Dur : 104 ms QT Int : 310 ms P-R-T Axes : 055 102 027 degrees QTc Int : 450 ms Sinus tachycardia Inferior infarct (cited on or before 27-OCT-2016) Possible Anterolateral infarct , age undetermined Abnormal ECG When compared with ECG of 27-OCT-2016 08:39, Borderline criteria for Anterior infarct are now Present Confirmed by Yoav Mendes ([id number]) on 06/26/2019 1:15:30 PM Referred By: REFERRED SELF Confirmed By:Yoav Mendes
--- NOTE | 2019-06-26 13:30 | Hospitalist Progress Note ---
Date of Service June 26, 2019 Assessment & Plan (1) Cellulitis of left lower leg: Secondary to a puncture wound of the left leg with a recliner at home Day #3 of cefepime, vancomycin, and Zosyn. Will continue today and plan on discharging on Keflex and Bactrim tomorrow Blood cultures x2 are currently negative Patient with a T-max of 39.7 on admission; No further fever Patient continued be tachycardic with hypertension Continue IV antibiotics until discharge Patient received his last tetanus vaccination 11/03/2018 (2) Hyperglycemia due to type 2 diabetes mellitus: Hemoglobin A1c is currently pending Most recent A1c 9.9 on 04/2018 Diabetic regimen modified by Dr. Benson at the patient's last primary care visit to include: * Lantus 50 units daily * Trulicity * Metformin ER 2000 mg qpm * Short acting insulin once to twice daily Long discussion regarding better control as an outpatient (3) Hypertension: Patient is taking lisinopril 40 mg p.o. daily at home Continue to monitor inpatient (4) Mixed hyperlipidemia: Atorvastatin 20 mg p.o. qpm Continue outpatient monitoring and treatment (5) Asthma: No bronchospasm on exam Oxygenating well on room air Continue ICS/LABA with Breo-ellipta Continue Singulair (6) Morbid obesity: BMI 42.0 kg/m Weight 152.4 kg Discussed need for weight loss with patient. 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 Christo Goldberg Patient denies any further fever or chills. No discharge from his left ellington. No LE edema. No sweats or rigors. No acute complaints. Review of Systems Review of Systems: All systems reviewed & are unremarkable except as noted in HPI & below Physical Exam Physical Exam: GENERAL : No acute distress EYES: No icterus, gaze conjugate NOSE: No evidence of epistaxis MOUTH: No lesions or candidiasis NECK: Supple LUNGS: CTA B/L, no wheezes, rales or rhonchi HEART: Regular, rate controlled ABDOMEN: Soft, NT, ND, BS Present EXTREMITIES: Minimal edema around left ellington cellulitis. Pain well controlled. Pedal pulses intact and equal bilateral. NEURO: A&OX3 Results & Data ([facility]) Vital Signs (Past 12 Hours) Vital Signs Temp Pulse Resp BP Pulse Ox 06/26/19 11:14 37.7 C H 06/26/19 07:37 37.9 C H 98 H 16 161/98 H 95 Laboratory Results 06/26/19 09:05 06/26/19 09:05 Diagnostic Findings US extremity nonvascular CLINICAL HISTORY: 38 years-old Male presenting with erythema of the left lower leg at site of injury, concern for abscess. TECHNIQUE: Real-time grayscale ultrasound imaging of the left lower leg was performed for a focused evaluation at the site of clinical concern. Color Doppler ultrasound imaging was also performed. COMPARISON: None. FINDINGS: At the site of clinical interest in the left lower leg, diffuse subcutaneous edema with diffuse hyperechogenicity and infiltrated appearance of the subcutaneous fat. Overlying skin thickening. Hyperemia of this region. Dilated lymphatics. Normal appearance of the subjacent musculature. No focal collection. There is a focal defect in the cutis with a tract extending into the subcutaneous fat in the distal left lower leg at the site of the puncture wound. IMPRESSION: 1. No abscess though there is a tract evident at the site of the puncture wound. 2. Evidence of severe cellulitis. ACT 112: Negative or not required by law. Electronically signed by: Vaibhav Duarte M.D. 06/26/2019 12:05 PM PG Care Time/CCT Total # of Minutes Spent Total Time Spent with Patient: Total time spent is greater than 50% in coordination of care (as documented) at patient's floor/unit and/or counseling patient:30 minutes including discussion with patient and patient's . 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
[2019-06-26] MEDS: ATORVASTATIN 20 MG TAB PO SCH (21:03)
[2019-06-27] MEDS ORDERED: VANCOMYCIN TROUGH ONE (03:30)
[2019-06-27] MEDS: VANCOMYCIN HCL 1,750 MG in SODIUM CHLORIDE 0.9% 500 ML IV SCH (03:44)
[2019-06-27] MEDS: SODIUM CHLORIDE 0.9% 1000ML 1,000 ML IV SCH ×2 (03:46→12:03)
[2019-06-27 04:11] LABS: Creatinine Clr Calc Pharmacy 207.4 ml/min; Est GFR (African American) 134.4; Est GFR (Non-African American) 115.9
[2019-06-27] MEDS: PIPERACILLIN/TAZOBACTAM 4.5 GM in DEXTROSE 5% 100 ML IV SCH (05:07)
--- NOTE | 2019-06-27 08:16 | Pharmacy Report ---
Pharmacy Abx Dose Short Note - Date of Service June 27, 2019 - Assessment & Plan Assessment 38 year old M receiving vancomycin/zosyn for cellulitis Day # 4 of antimicrobial therapy. Plan Vancomycin * Trough level came back slightly subtherapeutic at ~9.9 mcg/ml (goal 10-15 mcg/ml for cellulitis) * Will increase to vancomycin 2000 mg iv q 8 hrs to achieve higher trough level * Had been concern for accumulation due to BMI >35 kg/m2 however level today unchanged from previous level collected on 06/24 * Plan per provider notes likely discharge home soon and transition to oral antibiotics Pharmacy will continue to follow and will adjust dose/frequency as necessary. Thank you.
[2019-06-27] MEDS: INSULIN HUMAN NPH SC SCH ×2 (09:31→18:12)
[2019-06-27] MEDS: INSULIN ASPART 100 UNITS/ML 3 ML PEN SC SCH ×4 (09:31→21:01)
[2019-06-27] MEDS: SERTRALINE HCL 100 MG TABLET PO SCH (09:34)
[2019-06-27] MEDS: lisinopriL 40 MG TAB PO SCH (09:34)
[2019-06-27] MEDS: MONTELUKAST SODIUM 10 MG TABLET PO SCH (09:34)
[2019-06-27] MEDS: ENOXAPARIN INJ 40 MG/0.4 ML SYR SQ SCH (09:34)
[2019-06-27] MEDS: FLUTICASONE/VILANTEROL 200/25MCG 14 PUFFS/INHALER INH SCH (09:35)
--- NOTE | 2019-06-27 11:04 | Pharmacy Report ---
Pharmacy Glycemic Short Note 2 - Date of Service June 27, 2019 - Glycemic Short BSG Results (Last 24 hours): 06/26/19 06/26/19 06/26/19 12:04 17:05 20:59 POC Glucose 196 H 182 H 203 H 06/27/19 08:15 POC Glucose 153 H ASSESSMENT: 06/26: * Patient received total of 142 units of insulin yesterday, of which 95 were basal insulin * Fasting BSG w/in range at 153 mg/dL - will continue with same NPH dosing for now * BSGs trending up yesterday / still above goal [id number] - plan to tighten CF/CR. May need to decrease NPH tomorrow with adjustment of CF/CR today PLAN FOR INPATIENT GLYCEMIC CONTROL: * Hold outpatient oral diabetes medications * Basal insulin * NPH 55 units Qam * NPH 40 units Qpm * Bolus insulin - tighten * NovoLog per scale ACHS or Q6hrs while NPO * Goal Range: Low 110 mg/dL - High 140 mg/dL * Correction Factor: 12 mg/dL/unit * Nutritional / Prandial insulin per carb ratio of 1 unit per 4 grams CHO consumed PLAN FOR DISCHARGE: * A1C ~9.9% - goal <A1C <7% * Patient met with family educator and plan is [facility] * Would recommend continuation of home insulin on discharge and defer management/titration of insulin to [facility] endo as patient's insulin requirements in hospital significantly less than current outpatient regimen. * Feel that patient's diet likely decreased during admission contributing to less insulin needed while in house.
[2019-06-27] MEDS ORDERED: CEFEPIME CONSULT ACTIVE PRN (11:56)
[2019-06-27] MEDS: CLINDAMYCIN 900 MG in DEXTROSE 5% 50 ML IV SCH ×2 (12:01→21:00)
[2019-06-27 12:13] LABS: Basophils # (auto) 0.01 K/uL (0-0.2); Basophils % (auto) 0.1 %; Eosinophils % (auto) 1.2 %; Hematocrit (blood only) 41.5 % (42-52); Hemoglobin 14.3 g/dL (14.0-18.0); Immature Granulocytes # (auto) 0.04 K/uL (0.00-0.02); Immature Granulocytes % (auto) 0.5 %; Lymphocytes # (auto) 1.46 K/uL (1.2-3.4); Lymphocytes % (auto) 17.3 %; Mean Corpuscular Hemoglobin 28.5 pg (25-34); Mean Corpuscular Volume 82.8 fL (80-100); Mean Platelet Volume 9.3 fL (7.4-10.4); Monocytes # (auto) 0.75 K/uL (0.11-0.59); Monocytes % (auto) 8.9 %; Neutrophils # (auto) 6.08 K/uL (1.4-6.5); Platelet Count 144 K/uL (130-400); RDW Coefficient of Variation 13.8 % (11.5-14.5); RDW Standard Deviation 41.5 fL (36.4-46.3); Red Blood Count 5.01 M/uL (4.7-6.1); White Blood Count 8.44 K/uL (4.8-10.8)
[2019-06-27 12:14] LABS: Mean Corpuscular Hgb Conc 34.5 g/dL (32-36)
[2019-06-27 12:33] LABS: BUN Creatinine Ratio 11.1 (10-20); C Reactive Protein 7.85 mg/dl (0-0.29); Calcium 8.5 mg/dl (8.5-10.1); Creatinine Clr Calc Pharmacy 190.2 ml/min; Est GFR (African American) 129.6; Est GFR (Non-African American) 111.9; Potassium 3.3 mmol/L (3.5-5.1)
[2019-06-27] MEDS ORDERED: GADOBUTROL 65ML VIAL IV PRN (13:07)
--- NOTE | 2019-06-27 13:22 | Magnetic Resonance Report ---
Study: MRI left lower leg HISTORY: Infection. Cellulitis. FINDINGS: Signal characteristics of tibia as well as fibula are unremarkable. No evidence for bone ma rrow replacing process. Findings of generalized soft tissue edematous change seen circumferentially about the lower leg. No e vidence for muscular involvement. No evidence for abscess or collection. No evidence for abnormal signal characteristics of the anterior tibial periosteum. IMPRESSION: 1. Findings of mild generalized circumferential cellulitis and/or edema about the lower leg. 2. No evidence for muscular or bony involvement. 3. No evidence for drainable abscess or collection. Electronically signed by: Brooks Mendieta M.D. 06/27/2019 1:21 PM
[2019-06-27] MEDS: VANCOMYCIN HCL 2,000 MG in SODIUM CHLORIDE 0.9% 500 ML IV SCH ×2 (13:30→20:10)
[2019-06-27] MEDS: CEFEPIME 2,000 MG in SYRINGE 7.5 ML IV SCH ×2 (13:40→22:09)
--- NOTE | 2019-06-27 14:54 | Electrocardiogram Report ---
Test Reason : Blood Pressure : / mmHG Vent. Rate : 090 BPM Atrial Rate : 090 BPM P-R Int : 180 ms QRS Dur : 114 ms QT Int : 382 ms P-R-T Axes : 040 033 033 degrees QTc Int : 467 ms Normal sinus rhythm Normal ECG When compared with ECG of 24-JUN-2019 20:15, Borderline criteria for Anterior infarct are no longer Present Borderline criteria for Anterolateral infarct are no longer Present Questionable change in QRS axis Confirmed by Yoav Mendes ([id number]) on 06/27/2019 2:54:14 PM Referred By: REFERRED SELF Confirmed By:Yoav Mendes
--- NOTE | 2019-06-27 15:51 | Hospitalist Progress Note ---
Date of Service June 27, 2019 Assessment & Plan (1) Cellulitis of left lower leg: Concerned with developing sepsis. Patient is persistently tachycardic. Had fever last night. Diaphoretic today. CRP elevated Day #4 vancomycin, and Zosyn. Change antibiotics to clindamycin, cefepime, vancomycin Fever last night of 100.3. Repeat blood cultures x2 Blood cultures x2 are currently negative Patient with a T-max of 39.7 on admission; No further fevers except low grade temps as above Patient continued be tachycardic with hypertension Continue IV antibiotics until discharge Patient received his last tetanus vaccination 11/03/2018 -Consult Surgery based on recurrent cellulitis with small wound centrally and small sinus tract on imaging (2) Hyperglycemia due to type 2 diabetes mellitus: Hemoglobin [id number] up to 10.3% Prior to that, A1c was 9.9 on 04/2018 Diabetic regimen modified by Dr. Benson at the patient's last primary care visit to include: * Lantus 50 units daily * Trulicity * Metformin ER 2000 mg qpm * Short acting insulin once to twice daily Long discussion regarding better control as an outpatient (3) Hypertension: Continue lisinopril 40 mg p.o. daily Continue to monitor inpatient (4) Mixed hyperlipidemia: Continue atorvastatin 20 mg p.o. qpm Continue outpatient monitoring and treatment (5) Asthma: No bronchospasm on exam Oxygenating well on room air Continue ICS/LABA with Breo-ellipta Continue Singulair (6) Morbid obesity: BMI 42.0 kg/m Weight 152.4 kg Discussed need for weight loss with patient. 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 I verified all estrella points and agree with BEATRIS Benson's with the following exceptions and/or additions: Pt and wanted to review MRI and lab results with a doctor. Also had concerns that swelling was worse in left leg since this AM. Denies chest pain or SOB except when feleing anxious. Reports "I bawled like a baby last night." WOuld like to bring in his melatonin from home for sleep VSS, Obese, NAD Breathing unlabored LLE: anterior tibia with 10cm approx erythematous area circular with central crusted scab, no fluctuance, surrounded by much milder hyperemia down to medial ankle and lateral and medial calf; no streaking of erythema up thigh and no left inguinal SHELDON palpable; trace-1+ pitting edema left foot and ankle to distal tibia, calf nontender, 2+ DP pulse on left No other skin rashes 38 yo male here with LLE cellulitis MRI result reviewed-no OM or myonecrosis--> with small sinus tract suspect from this chronic wound on left leg where had previous infection. -consult SUrgery to see if needs surgical debridement of central sinus tract/source of infection -changed abx today given persistent low grade fevers and seemed worse than previous I do not suspect nec fasciitis Follow ESR/CRP, CBC, follow temperatute and repeat BCxs -continue elevation of leg d/c IVFs as some edema may be from being +6L on fluid status Subjective Attending: Dr. Emanuel Patient seen and examined at bedside with present. The cellulitis on the left leg is worse today. There is blanching around the central location where the puncture quyen is. Patient did have fever last night and is tachycardic toda y. Repeat blood cultures, labs, MRI of lower extremity has been requested. Patient denies any rigors or sweats. He is having increasing difficulty walking as the leg feels as though is tighter in the skin is ripping as he walks. Patient did have some chest pain last night. EKG was normal. Patient has no shortness of breath or cough. He has no nausea or vomiting. Review of Systems Review of Systems: All systems reviewed & are unremarkable except as noted in HPI & below Physical Exam Physical Exam: GENERAL : No acute distress EYES: No icterus, gaze conjugate NOSE: No evidence of epistaxis MOUTH: No lesions or candidiasis NECK: Supple LUNGS: CTA B/L, no wheezes, rales or rhonchi HEART: Regular, rate controlled BACK: Diaphoretic. No rash. ABDOMEN: Soft, NT, ND, BS Present EXTREMITIES: Patient with lower extremity edema of the left. Pedal pulses are intact and equal bilaterally. Patient does have what appears to be worsening erythema and pain at the left lower extremity cellulitic site. Sensation to the toes is intact. There is no drainage from the wound. NEURO: A&OX3 Results & Data ([facility]) Vital Signs (Past 12 Hours) Vital Signs Temp Pulse Resp BP BP Pulse Ox 06/27/19 15:29 37.1 C 103 H 16 164/94 H 97 06/27/19 07:22 36.7 C 83 16 152/91 H 96 Laboratory Results 06/27/19 12:01 06/27/19 12:01 CRP is elevated Lactic acid 1.3 Diagnostic Findings US extremity nonvascular CLINICAL HISTORY: 38 years-old Male presenting with erythema of the left lower leg at site of injury, concern for abscess. TECHNIQUE: Real-time grayscale ultrasound imaging of the left lower leg was performed for a focused evaluation at the site of clinical concern. Color Doppler ultrasound imaging was also performed. COMPARISON: None. FINDINGS: At the site of clinical interest in the left lower leg, diffuse subcutaneous edema with diffuse hyperechogenicity and infiltrated appearance of the subcutaneous fat. Overlying skin thickening. Hyperemia of this region. Dilated lymphatics. Normal appearance of the subjacent musculature. No focal collection. There is a focal defect in the cutis with a tract extending into the subcutaneous fat in the distal left lower leg at the site of the puncture wound. IMPRESSION: 1. No abscess though there is a tract evident at the site of the puncture wound. 2. Evidence of severe cellulitis. Electronically signed by: Vaibhav Duarte M.D. 06/26/2019 12:05 PM Study: MRI left lower leg HISTORY: Infection. Cellulitis. FINDINGS: Signal characteristics of tibia as well as fibula are unremarkable. No evidence for bone marrow replacing process. Findings of generalized soft tissue edematous change seen circumferentially about the lower leg. No evidence for muscular involvement. No evidence for abscess or collection. No evidence for abnormal signal characteristics of the anterior tibial periosteum. IMPRESSION: 1. Findings of mild generalized circumferential cellulitis and/or edema about the lower leg. 2. No evidence for muscular or bony involvement. 3. No evidence for drainable abscess or collection. Electronically signed by: Quyen Mendieta M.D. 06/27/2019 1:21 PM PG Care Time/CCT Total # of Minutes Spent Total Time Spent with Patient: Total time spent is greater than 50% in coordination of care (as documented) at patient's floor/unit and/or counseling patient: 40 minutes Coding Level of Care Code 28570 Subseq Hosp Care Lvl 3 Diagnoses Cellulitis of left lower leg L03.116 Hyperglycemia due to type 2 diabetes mellitus E11.65; Z79.4 Diabetes mellitus manager long term care insulin use: with manager long term care use Hypertension I10 Mixed hyperlipidemia E78.2 Asthma J45.909 Morbid obesity E66.01 DVT prophylaxis Z29.9 (1) Hyperglycemia due to type 2 diabetes mellitus Diabetes mellitus manager long term care insulin use: with fdc use Qualified Code(s): E11.65 - Type 2 diabetes mellitus with hyperglycemia; Z79.4 - prison (current) use of insulin
[2019-06-27] MEDS: IBUPROFEN 600 MG TAB PO PRN (15:52)
[2019-06-27] MEDS ORDERED: KETOROLAC TROMETHAMINE 15 MG/ML VIAL IV PRN (18:42)
--- NOTE | 2019-06-27 20:06 | Ultrasound Report ---
US venous doppler LE LT CLINICAL HISTORY: 38 years-old Male presenting with R/O DVT Increased edema, sedentary, cellulitis. TECHNIQUE: Real-time grayscale and color and spectral Doppler ultrasound imaging of the veins of the left lower extremity was performed. Compression and augmentation were also utilized. COMPARISON: 09/30/2016. FINDINGS: LEFT: Common femoral vein: Patent. Greater saphenous vein (superficial): Patent. Deep femoral vein: Patent. Femoral vein: Patent. Popliteal vein: Patent. Calf veins: Patent. Other: None. IMPRESSION: No evidence of deep venous thrombosis. ACT 112: Negative or not required by law. Electronically signed by: Vaibhav Duarte M.D. 06/27/2019 8:04 PM
[2019-06-27] MEDS: ATORVASTATIN 20 MG TAB PO SCH (21:00)
[2019-06-27] MEDS: MELATONIN 5MG PO SCH (22:07)
[2019-06-28] MEDS: CLINDAMYCIN 900 MG in DEXTROSE 5% 50 ML IV SCH ×3 (04:48→20:16)
[2019-06-28] MEDS: VANCOMYCIN HCL 2,000 MG in SODIUM CHLORIDE 0.9% 500 ML IV SCH ×2 (04:48→12:48)
[2019-06-28] MEDS: CEFEPIME 2,000 MG in SYRINGE 7.5 ML IV SCH (05:19)
[2019-06-28 05:31] LABS: Basophils # (auto) 0.01 K/uL (0-0.2); Basophils % (auto) 0.1 %; Eosinophils # (auto) 0.18 K/uL (0-0.5); Eosinophils % (auto) 2.3 %; Hematocrit (blood only) 39.7 % (42-52); Hemoglobin 13.5 g/dL (14.0-18.0); Immature Granulocytes # (auto) 0.03 K/uL (0.00-0.02); Immature Granulocytes % (auto) 0.4 %; Lymphocytes # (auto) 1.56 K/uL (1.2-3.4); Lymphocytes % (auto) 20.2 %; Mean Corpuscular Hemoglobin 28.3 pg (25-34); Mean Corpuscular Volume 83.2 fL (80-100); Mean Platelet Volume 9.7 fL (7.4-10.4); Monocytes # (auto) 0.81 K/uL (0.11-0.59); Monocytes % (auto) 10.5 %; Neutrophils # (auto) 5.15 K/uL (1.4-6.5); Neutrophils % (auto) 66.5 %; Platelet Count 167 K/uL (130-400); RDW Coefficient of Variation 13.8 % (11.5-14.5); RDW Standard Deviation 41.6 fL (36.4-46.3); Red Blood Count 4.77 M/uL (4.7-6.1); White Blood Count 7.74 K/uL (4.8-10.8)
[2019-06-28 06:10] LABS: BUN Creatinine Ratio 18.1 (10-20); Calcium 8.3 mg/dl (8.5-10.1); Creatinine Clr Calc Pharmacy 234.9 ml/min; Est GFR (African American) 141.4; Potassium 3.2 mmol/L (3.5-5.1)
[2019-06-28 06:11] LABS: C Reactive Protein 6.96 mg/dl (0-0.29)
--- NOTE | 2019-06-28 08:20 | Surgery Consultation ---
Date of Consultation June 28, 2019 Assessment & Plan (1) Cellulitis of left lower leg: Improving cellulitis. No intervention at this point. He can follow-up in clinic once cellulitis resolves to consider excising this area although there is risk of a continuing non-healing wound. History of Present Illness Attending Physician: Meredith Emanuel MD History of Present Illness 38 y/o male diabetic admitted 5 days ago for LLE cellulitis. This is improving with IV abx. This is his second infection around a small puncture wound he suffered last year from the spring of a mower deck. He was wondering if this area can be excised in the future. Allergies Allergy/AdvReac Type Severity Reaction Status Date / Time No Known Drug Allergies Allergy Verified 05/05/19 08:29 Home Medications Home Medications Medication Instructions Recorded Confirmed Type loratadine 10 mg tablet 10 mg PO DAILY PRN tab 11/17/18 06/24/19 History atorvastatin 20 mg tablet 20 mg PO QPM #90 tab 05/05/19 06/24/19 Rx dulaglutide 1.5 mg/0.5 mL 1.5 mg SUBCUT WEEKLY #2 ml 05/05/19 06/24/19 Rx subcutaneous pen injector lisinopril 40 mg tablet 40 mg PO DAILY #90 tab 05/05/19 06/24/19 Rx metformin 500 mg tablet,extended 2,000 mg PO QPM #120 tab 05/05/19 06/24/19 Rx release 24 hr montelukast 10 mg tablet 10 mg PO DAILY #90 tab 05/05/19 06/24/19 Rx cholecalciferol (vitamin D3) 1,250 1,250 mcg PO WEEKLY #4 cap 05/09/19 06/24/19 Rx mcg (50,000 unit) capsule fluticasone propion-salmeterol 1 puffs INHALATION BID PRN 06/24/19 06/24/19 History insulin aspart U-100 [Novolog 0 unit SUBCUT TID PRN 06/24/19 06/24/19 History Flexpen U-100 Insulin] insulin regular hum U-500 conc 60 - 80 unit SUBCUT QPM 06/24/19 06/24/19 History [Humulin R U-500 (Conc) Kwikpen] insulin regular hum U-500 conc 120 - 140 unit SUBCUT QAM 06/24/19 06/24/19 History [Humulin R U-500 (Conc) Muikpen] sertraline 200 mg PO QAM 06/24/19 06/24/19 History Patient History Medical History Anxiety and depression (Acute) Asthma (Acute) Bronchitis (Resolved) Cellulitis Environmental allergies (Acute) Fracture of rib, single, closed (Acute) Hyperlipidemia (Acute) Hypertension (Acute) Mixed hyperlipidemia (Acute) Morbid obesity Type 2 diabetes mellitus, uncontrolled (Acute) Uncontrolled insulin dependent diabetes mellitus (Acute) Surgical History History of tonsillectomy and adenoidectomy History of wisdom tooth extraction Family History Mother Depression Anxiety Diabetes Cardiac disorder Colon cancer Father Cardiac disorder Hypertension Myocardial infarction Aunt Stroke great Denies family history of Ovarian cancer Prostate cancer Breast cancer Lung cancer Social History Preferred Language: [place] Communication Ability: Effective Visual Impairment: No Limitations Hearing Ability: Normal 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 Beliefs That Will Affect Care: None marital status: Current Living Situation: Spouse and Family current occupational status: employed 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 [id number] Other Information That Helps Us Care for You: No Feels Safe at Home: Yes Safety Concerns: Feels Safe At This Time Smoking Status: Former smoker Age Started Using Tobacco: 18 ; Age Quit Using Tobacco: 23 ; packs per day: 0.5 ; Cigarettes Per Day: 10 ; Smoking End Date: 15 years ago ; Number of Years Since Quit: 15 ; Second Hand Exposure: No ; Hx Alcohol Use: Yes Alcohol Intake Frequency: Rarely Hx Substance Use: No Childhood Exposure to Second-Hand Smoke: No Review of Systems Constitutional: + fever (on admission) Physical Exam Skin: 10 cm area of remaining erythema left ellington around small puncture wound, previous outline of erythema extended from ankle to knee Results & Data Vital Signs (Past 12 Hours) Vital Signs Temp Pulse Resp BP Pulse Ox 06/28/19 07:44 36.7 C 91 H 18 158/91 H 95 03/10/20 22:59 36.9 C 84 16 158/90 H 93 PG Care Time/CCT Total # of Minutes Spent Total Time Spent with Patient: Total time spent is greater than 50% in coordination of care (as documented) at patient's floor/unit and/or counseling patient: Coding Level of Care Code 34209 Inpt Consult Level 2 Diagnoses Cellulitis of left lower leg L03.116
[2019-06-28] MEDS: INSULIN HUMAN NPH SC SCH ×2 (09:01→18:14)
[2019-06-28] MEDS: INSULIN ASPART 100 UNITS/ML 3 ML PEN SC SCH ×4 (09:02→21:26)
[2019-06-28] MEDS: FLUTICASONE/VILANTEROL 200/25MCG 14 PUFFS/INHALER INH SCH (09:03)
[2019-06-28] MEDS: lisinopriL 40 MG TAB PO SCH (09:04)
[2019-06-28] MEDS: ENOXAPARIN INJ 40 MG/0.4 ML SYR SQ SCH (09:04)
[2019-06-28] MEDS: MONTELUKAST SODIUM 10 MG TABLET PO SCH (09:04)
[2019-06-28] MEDS: SERTRALINE HCL 100 MG TABLET PO SCH (09:04)
[2019-06-28] MEDS ORDERED: POTASSIUM CHLORIDE 20 MEQ TABCR PO STA (10:37)
[2019-06-28] MEDS ORDERED: VANCOMYCIN TROUGH ONE (11:45)
--- NOTE | 2019-06-28 11:53 | Hospitalist Progress Note ---
Date of Service June 28, 2019 Assessment & Plan (1) Cellulitis of left lower leg: With sepsis, POA with tachycardia, fever, tachypnea, mild leukocytosis, lactate 2.0 and left lower ext cellulitis POA Sepsis now resolved-no further low grade fevers today, leukocytosis resolved, CRP trending downward and ESR up but lags behind CRP BCxs / and repeat on 06/26 for persistent fevers remain NGTD, NO bacteremia Wound culture with Group G beta Strep resulted today Received 5 days now of IV vancomycin, and 4 days of Zosyn--> due to concern for worsening edema and erythema on day#4, Zosyn was dcd and changed to Cefepime and Clinda for Pseudomonas coverage (in case of resistance to Zosyn) and clinda for anaerobic coverage given puncture wound Now improving on 06/27 Some edema though is from being volume overloaded as below and giving lasix for that Doppler LLE negative for DVT; MRI LLE neg for OM or myonecrosis or abscess Consulted Surgery based on recurrent cellulitis with small wound centrally and small sinus tract on imaging to see if needs debridement--> recommend outpt f/u for possible excision of non-healing wound after acute cellulitis resolved Patient received his last tetanus vaccination 11/03/2018 -given cx results, will now dc cefepime and vancomycin, vanc trough pending and has been subtherapeutic throughout thus far -will continue clinda alone for Strep and for coverage of anaerobic coverage given puncture wound -follow up on Blood cultures x2 and Wound cx sensitivities -follow clinically -follow ESR, CRP, CBC -continue toradol and APAP prn pain in leg (2) Hyperglycemia due to type 2 diabetes mellitus: Hemoglobin A1c currently up to 10.3% Prior to that, A1c was 9.9 on 04/2018 Diabetic regimen modified by Dr. Benson at the patient's last primary care visit to include: * Lantus 50 units daily * Trulicity * Metformin ER 2000 mg qpm * Short acting insulin once to twice daily Glucose here better controlled on NPH as per Pharmacy management Long discussion regarding better control as an outpatient (3) Hypertension: BPs uncontrolled here, some due to volume overload -contone lisinopril 40mg daily -give IV lasix 20mg x 1 today and consider starting HCTZ or chlorthalidone on discharge (4) Edema: left leg secondary to cellulitis and also is +8L for hospital stay -giving IV lasix -continue leg elevation (5) Mixed hyperlipidemia: continue atorvastatin (6) Asthma: no acute issues -continue Breo ellipta here and Singulair (7) Morbid obesity: needs weight loss BMI 42 (8) Anxiety and depression: continue sertraline, melatonin for sleep (9) Hypokalemia: K+ 3.2 today -replace with po KCl -follow BMP in AM in light of giving IV lasix today (10) DVT prophylaxis: Admission and Anticipated Discharge Date Admission Date: June 24, 2019 Anticipated date of discharge: 06/27/19 Subjective Pt feeling better today, got great sleep last night with his melatonin from home. Pain in left leg is improving, still with swelling in leg. Denies abd pains or diarrhea No chest pains or SOB. BPs have been high and he is now +8L fluid and body weight up 3+ kg He is anxious to return home but then ultimately said he wants to stay another night to make sure things continue to get better Review of Systems Review of Systems: All systems reviewed & are unremarkable except as noted in HPI & below Physical Exam Physical Exam: VSS, Obese, NAD Anicteric sclerae RRR no mgr CTAB no wcr, Breathing unlabored Abd +BS soft NT ND obese LLE: anterior tibia with 10cm approx erythematous area circular with central crusted scab, no fluctuance, surrounded by much milder hyperemia previously down to medial ankle and lateral and medial calf but now much receded from marker line; no streaking of erythema up thigh and no left inguinal SHELDON palpable; trace-1+ pitting edema left foot and ankle to distal tibia, calf nontender, 2+ DP pulse on left No other skin rashes Results & Data ([facility]) Vital Signs (Past 12 Hours) Vital Signs Temp Pulse Resp BP Pulse Ox 06/28/19 07:44 36.7 C 91 H 18 158/91 H 95 Laboratory Results 06/28/19 06/28/19 06/28/19 Range/Units 08:04 05:17 05:17 WBC 7.74 (4.8-10.8) K/uL RBC 4.77 (4.7-6.1) M/uL Hgb 13.5 L (14.0-18.0) g/dL Hct 39.7 L (42-52) % MCV 83.2 (80-100) fL MCH 28.3 (25-34) pg MCHC 34.0 (32-36) g/dL RDW Std Deviation 41.6 (36.4-46.3) fL RDW Coeff of Rhonda 13.8 (11.5-14.5) % Plt Count 167 (130-400) K/uL MPV 9.7 (7.4-10.4) fL Immature Gran % (Auto) 0.4 % Neut % (Auto) 66.5 % Lymph % (Auto) 20.2 % Adams % (Auto) 10.5 % Eos % (Auto) 2.3 % Baso % (Auto) 0.1 % Immature Gran # (Auto) 0.03 H (0.00-0.02) K/uL Neut # (Auto) 5.15 (1.4-6.5) K/uL Lymph # (Auto) 1.56 (1.2-3.4) K/uL Adams # (Auto) 0.81 H (0.11-0.59) K/uL Eos # (Auto) 0.18 (0-0.5) K/uL Baso # (Auto) 0.01 (0-0.2) K/uL ESR 51 H (0-14) mm/hr Sodium (136-145) mmol/L Potassium (3.5-5.1) mmol/L Chloride (98-107) mmol/L Carbon Dioxide (21-32) mmol/L Anion Gap (3-11) BUN (7-18) mg/dl Creatinine (0.6-1.4) mg/dl Est Cr Clr Drug Dosing ml/min Est GFR ( Amer) Est GFR (Non-Af Amer) BUN/Creatinine Ratio (10-20) Glucose (70-99) mg/dl POC Glucose 126 H (70-99) mg/dl Lactate (0.4-2.0) mmol/L Calcium (8.5-10.1) mg/dl C-Reactive Protein (0-0.29) mg/dl 06/28/19 06/27/19 06/27/19 Range/Units 05:17 20:44 17:00 WBC (4.8-10.8) K/uL RBC (4.7-6.1) M/uL Hgb (14.0-18.0) g/dL Hct (42-52) % MCV (80-100) fL MCH (25-34) pg MCHC (32-36) g/dL RDW Std Deviation (36.4-46.3) fL RDW Coeff of Rhonda (11.5-14.5) % Plt Count (130-400) K/uL MPV (7.4-10.4) fL Immature Gran % (Auto) % Neut % (Auto) % Lymph % (Auto) % Adams % (Auto) % Eos % (Auto) % Baso % (Auto) % Immature Gran # (Auto) (0.00-0.02) K/uL Neut # (Auto) (1.4-6.5) K/uL Lymph # (Auto) (1.2-3.4) K/uL Adams # (Auto) (0.11-0.59) K/uL Eos # (Auto) (0-0.5) K/uL Baso # (Auto) (0-0.2) K/uL ESR (0-14) mm/hr Sodium 138 (136-145) mmol/L Potassium 3.2 L (3.5-5.1) mmol/L Chloride 107 (98-107) mmol/L Carbon Dioxide 25 (21-32) mmol/L Anion Gap 6.0 (3-11) BUN 12 (7-18) mg/dl Creatinine 0.68 (0.6-1.4) mg/dl Est Cr Clr Drug Dosing 234.9 ml/min Est GFR ( Amer) 141.4 Est GFR (Non-Af Amer) 122.0 BUN/Creatinine Ratio 18.1 (10-20) Glucose 160 H (70-99) mg/dl POC Glucose 141 H 164 H (70-99) mg/dl Lactate (0.4-2.0) mmol/L Calcium 8.3 L (8.5-10.1) mg/dl C-Reactive Protein 6.96 H (0-0.29) mg/dl 06/27/19 06/27/19 06/27/19 Range/Units 13:37 12:01 12:01 WBC (4.8-10.8) K/uL RBC (4.7-6.1) M/uL Hgb (14.0-18.0) g/dL Hct (42-52) % MCV (80-100) fL MCH (25-34) pg MCHC (32-36) g/dL RDW Std Deviation (36.4-46.3) fL RDW Coeff of Rhonda (11.5-14.5) % Plt Count (130-400) K/uL MPV (7.4-10.4) fL Immature Gran % (Auto) % Neut % (Auto) % Lymph % (Auto) % Adams % (Auto) % Eos % (Auto) % Baso % (Auto) % Immature Gran # (Auto) (0.00-0.02) K/uL Neut # (Auto) (1.4-6.5) K/uL Lymph # (Auto) (1.2-3.4) K/uL Adams # (Auto) (0.11-0.59) K/uL Eos # (Auto) (0-0.5) K/uL Baso # (Auto) (0-0.2) K/uL ESR (0-14) mm/hr Sodium 137 (136-145) mmol/L Potassium 3.3 L (3.5-5.1) mmol/L Chloride 106 (98-107) mmol/L Carbon Dioxide 27 (21-32) mmol/L Anion Gap 4.0 (3-11) BUN 9 (7-18) mg/dl Creatinine 0.84 (0.6-1.4) mg/dl Est Cr Clr Drug Dosing 190.2 ml/min Est GFR ( Amer) 129.6 Est GFR (Non-Af Amer) 111.9 BUN/Creatinine Ratio 11.1 (10-20) Glucose 208 H (70-99) mg/dl POC Glucose 168 H (70-99) mg/dl Lactate 1.3 (0.4-2.0) mmol/L Calcium 8.5 (8.5-10.1) mg/dl C-Reactive Protein 7.85 H (0-0.29) mg/dl 06/27/19 06/27/19 Range/Units 12:01 12:01 WBC 8.44 (4.8-10.8) K/uL RBC 5.01 (4.7-6.1) M/uL Hgb 14.3 (14.0-18.0) g/dL Hct 41.5 L (42-52) % MCV 82.8 (80-100) fL MCH 28.5 (25-34) pg MCHC 34.5 (32-36) g/dL RDW Std Deviation 41.5 (36.4-46.3) fL RDW Coeff of Rhonda 13.8 (11.5-14.5) % Plt Count 144 (130-400) K/uL MPV 9.3 (7.4-10.4) fL Immature Gran % (Auto) 0.5 % Neut % (Auto) 72.0 % Lymph % (Auto) 17.3 % Adams % (Auto) 8.9 % Eos % (Auto) 1.2 % Baso % (Auto) 0.1 % Immature Gran # (Auto) 0.04 H (0.00-0.02) K/uL Neut # (Auto) 6.08 (1.4-6.5) K/uL Lymph # (Auto) 1.46 (1.2-3.4) K/uL Adams # (Auto) 0.75 H (0.11-0.59) K/uL Eos # (Auto) 0.10 (0-0.5) K/uL Baso # (Auto) 0.01 (0-0.2) K/uL ESR 39 H (0-14) mm/hr Sodium (136-145) mmol/L Potassium (3.5-5.1) mmol/L Chloride (98-107) mmol/L Carbon Dioxide (21-32) mmol/L Anion Gap (3-11) BUN (7-18) mg/dl Creatinine (0.6-1.4) mg/dl Est Cr Clr Drug Dosing ml/min Est GFR ( Amer) Est GFR (Non-Af Amer) BUN/Creatinine Ratio (10-20) Glucose (70-99) mg/dl POC Glucose (70-99) mg/dl Lactate (0.4-2.0) mmol/L Calcium (8.5-10.1) mg/dl C-Reactive Protein (0-0.29) mg/dl PG Care Time/CCT Total # of Minutes Spent Total Time Spent with Patient: Total time spent is greater than 50% in coordination of care (as documented) at patient's floor/unit and/or counseling patient: Coding Level of Care Code 58123 Subseq Hosp Care Lvl 3 Diagnoses Cellulitis of left lower leg L03.116 Hyperglycemia due to type 2 diabetes mellitus E11.65; Z79.4 Diabetes mellitus detention insulin use: 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
[2019-06-28] MEDS ORDERED: FUROSEMIDE 20 MG in SYRINGE 0 ML IV ONE (12:15)
[2019-06-28] MEDS: ACETAMINOPHEN 325 MG TAB PO PRN (19:39)
[2019-06-28] MEDS: MELATONIN 5MG PO SCH (21:27)
[2019-06-28] MEDS: ATORVASTATIN 20 MG TAB PO SCH (21:27)
[2019-06-29] MEDS: CLINDAMYCIN 900 MG in DEXTROSE 5% 50 ML IV SCH ×2 (04:20→11:48)
[2019-06-29 06:23] LABS: Basophils # (auto) 0.01 K/uL (0-0.2); Basophils % (auto) 0.1 %; Eosinophils # (auto) 0.19 K/uL (0-0.5); Eosinophils % (auto) 2.2 %; Hematocrit (blood only) 42.7 % (42-52); Hemoglobin 14.3 g/dL (14.0-18.0); Immature Granulocytes # (auto) 0.05 K/uL (0.00-0.02); Immature Granulocytes % (auto) 0.6 %; Lymphocytes # (auto) 1.66 K/uL (1.2-3.4); Lymphocytes % (auto) 19.6 %; Mean Corpuscular Hgb Conc 33.5 g/dL (32-36); Mean Corpuscular Volume 83.6 fL (80-100); Mean Platelet Volume 9.4 fL (7.4-10.4); Monocytes % (auto) 8.3 %; Neutrophils # (auto) 5.87 K/uL (1.4-6.5); Neutrophils % (auto) 69.2 %; Platelet Count 203 K/uL (130-400); RDW Coefficient of Variation 13.8 % (11.5-14.5); RDW Standard Deviation 41.9 fL (36.4-46.3); Red Blood Count 5.11 M/uL (4.7-6.1); White Blood Count 8.48 K/uL (4.8-10.8)
[2019-06-29 07:09] LABS: BUN Creatinine Ratio 14.9 (10-20); C Reactive Protein 5.42 mg/dl (0-0.29); Calcium 8.6 mg/dl (8.5-10.1); Creatinine Clr Calc Pharmacy 190.2 ml/min; Est GFR (African American) 129.6; Est GFR (Non-African American) 111.9
[2019-06-29 07:56] LABS: Potassium 3.4 mmol/L (3.5-5.1)
[2019-06-29 07:57] LABS: Magnesium 2.2 mg/dl (1.8-2.4)
[2019-06-29] MEDS: INSULIN ASPART 100 UNITS/ML 3 ML PEN SC SCH ×2 (08:44→12:55)
[2019-06-29] MEDS: INSULIN HUMAN NPH SC SCH (08:44)
[2019-06-29] MEDS: FLUTICASONE/VILANTEROL 200/25MCG 14 PUFFS/INHALER INH SCH (08:46)
[2019-06-29] MEDS: MONTELUKAST SODIUM 10 MG TABLET PO SCH (08:46)
[2019-06-29] MEDS: lisinopriL 40 MG TAB PO SCH (08:46)
[2019-06-29] MEDS: SERTRALINE HCL 100 MG TABLET PO SCH (08:46)
[2019-06-29] MEDS: ENOXAPARIN INJ 40 MG/0.4 ML SYR SQ SCH (08:47)
--- NOTE | 2019-06-29 10:46 | Pharmacy Report ---
Pharmacy Glycemic Short Note 2 - Date of Service June 29, 2019 - Glycemic Short BSG Results (Last 24 hours): 06/28/19 06/28/19 06/28/19 12:11 17:32 21:00 Glucose POC Glucose 159 H 138 H 212 H 06/29/19 06/29/19 06:07 08:21 Glucose 133 H POC Glucose 140 H ASSESSMENT: 06/28: * Yomi received 130 units of insulin yesterday * 95 units of basal * 35 units of bolus * Fasting BSG of 140 mg/dL is near goal. * Post prandial BSGs are acceptable. Bedtime BSG was elevated yesterday. If this becomes a trend, will consider increasing evening dose of NPH to 45 units. 06/26: * Patient received total of 142 units of insulin yesterday, of which 95 were basal insulin * Fasting BSG w/in range at 153 mg/dL - will continue with same NPH dosing for now * BSGs trending up yesterday / still above goal [id number] - plan to tighten CF/CR. May need to decrease NPH tomorrow with adjustment of CF/CR today PLAN FOR INPATIENT GLYCEMIC CONTROL: * Hold outpatient oral diabetes medications * Basal insulin * NPH 55 units Qam * NPH 40 units Qpm * Bolus insulin - tighten * NovoLog per scale ACHS or Q6hrs while NPO * Goal Range: Low 110 mg/dL - High 140 mg/dL * Correction Factor: 12 mg/dL/unit * Nutritional / Prandial insulin per carb ratio of 1 unit per 4 grams CHO consumed PLAN FOR DISCHARGE: * A1C ~9.9% - goal <A1C <7% * Patient met with simulation educator and plan is [facility] * Would recommend continuation of home insulin on discharge and defer management/titration of insulin to [facility] endo as patient's insulin requirements in hospital significantly less than current outpatient regimen. * Feel that patient's diet likely decreased during admission contributing to less insulin needed while in house.
[2019-06-29] MEDS ORDERED: POTASSIUM CHLORIDE 20 MEQ TABCR PO ONE (11:15)
--- NOTE | 2019-06-29 14:25 | Discharge Summary ---
Date of Service June 29, 2019 Admission HPI Per Admitting Provider Yomi Groves is a 38 year old man with a past medical history poorly controlled type II diabetes on insulin, hyperlipidemia, hypertension, ashtma, anxiety and depression who is here today with a left lower limb skin infection. He tells me that on Wednesday of this week he walked into a metal portion of a recliner chair which resulted in a puncture wound of the left lower limb. The next day he noticed a red tender rash around the wound, this continued to spread and yesterday the patient started to have fevers and chills. Patient has had cellulitis in the past and he marked the extent of the rash on his leg with a marker earlier today. By tonight he continued to have fevers and chills and noticed that it had spread about an inch and a half past his markings earlier in the day so he decided to come in. He is having very mild pain made worse by palpation and fevers and chills otherwise he denies any symptoms including chest pain, shortness of breath, cough, URI symptoms, Abdominal pain, nausea vomiting or diarrhea. He has no calf pain, no difficulty walking, and no other pain besides his anterior left leg. He denies any allergies to any antibiotics that he is aware of. He lives at home with his and 4 year old son. His is currently 10 weeks , no one else is sick, no recent travel. Principal Diagnosis Left lower extremity cellulitis Sepsis Discharge Exam VSS, Obese, NAD Anicteric sclerae RRR no mgr CTAB no wcr, Breathing unlabored Abd +BS soft NT ND obese LLE: anterior tibia with 9-10cm approx very mildly erythematous area circular MUCH IMPROVED with central crusted scab, no fluctuance, surrounded by much milder hyperemia almost completely resolved now previously down to medial ankle and lateral and medial calf but now much receded from marker line; no streaking of erythema up thigh; trace pitting edema left foot and ankle to distal tibia much improved, calf nontender, 2+ DP pulse on left No other skin rashes Discharge Data Allergies Allergy/AdvReac Type Severity Reaction Status Date / Time No Known Drug Allergies Allergy Verified 05/05/19 08:29 Consultations 06/24/19 20:44 ED Decision to Admit Stat 06/27/19 16:13 Consult General Surgery Routine Ordered Studies 06/26/19 09:15 US extremity nonvascular Urgent 06/27/19 10:47 MR lower leg LT wo/w con Urgent 06/27/19 16:13 US venous doppler LE LT Routine CXR Hospital Course (1) Cellulitis of left lower leg: With sepsis, POA with tachycardia, fever, tachypnea, mild leukocytosis, lactate 2.0 and left lower ext cellulitis POA Sepsis now resolved-no further low grade fevers x the last 2 days, leukocytosis resolved, CRP trending downward and ESR up but lags behind CRP and would expect it to trend downward soon BCxs 06/23 and repeat on 06/26 for persistent fevers remain NGTD, NO bacteremia Wound culture with Group G beta Strep pansensitive Received 5 days of IV vancomycin although trough was never therapeutic due to obesity, and 4 days of Zosyn--> due to concern for worsening edema and erythema on day#4, Zosyn was dcd and changed to Cefepime and Clinda for Pseudomonas coverage (in case of resistance to Zosyn) and clinda for anaerobic coverage given puncture wound Now improving on 06/27 and after culture returned with Group G Strep, all abx dcd except Clinda Edema much improved and was secondary to infection as well as volume overload--> almost completely resolved with one dose lasix and elevation/treatment of cellulitis Doppler LLE negative for DVT; MRI LLE neg for OM or myonecrosis or abscess Consulted Surgery based on recurrent cellulitis with small wound centrally and small sinus tract on imaging to see if needs debridement--> recommend outpt f/u for possible excision of non-healing wound after acute cellulitis resolved Patient received his last tetanus vaccination 11/03/2018 -will continue clinda alone for Strep and for coverage of anaerobic coverage given puncture wound--> clinda 600mg po tid x 5 more days for a total of 10 days of treatment including IV abx in hospital -follow up on Blood cultures final result after discharge -follow clinically -continue APAP or ibuprofen prn pain after discharge Should remain out of work through 07/03 (2) Hyperglycemia due to type 2 diabetes mellitus: Hemoglobin A1c currently up to 10.3% Prior to that, A1c was 9.9 on 04/2018 Diabetic regimen modified by Dr. Perez at the patient's last primary care visit to include: * Lantus 50 units daily * Trulicity * Metformin ER 2000 mg qpm * Short acting insulin once to twice daily Glucose here better controlled on NPH as per Pharmacy management but will return to home dosing and f/u with Endocrine after discharge Long discussion regarding better control as an outpatient (3) Hypertension: BPs uncontrolled here, some due to volume overload, now improved with IV lasix -continue lisinopril 40mg daily -consider starting HCTZ or chlorthalidone as outpt-defer to PCP (4) Edema: left leg secondary to cellulitis volume overload--> now much improved with lasix -continue leg elevation (5) Mixed hyperlipidemia: continue atorvastatin (6) Asthma: no acute issues -continue LABA/ICS and Singulair (7) Morbid obesity: needs weight loss BMI 42 (8) Anxiety and depression: continue sertraline, melatonin for sleep (9) Hypokalemia: K+ 3.4 today -replace with po KCl (10) DVT prophylaxis: Lovenox Dispo-stable for dc to home Total Time Total Time Spent Total Time Spent (In Minutes): 35 min Total Time Includes: Examination of the Patient, Discharge Planning and Medication Reconciliation Discharge Plan Discharge Items Patient Disposition: Home - Self-Care Reason For Visit: CELLULITIS SEPSIS Discharge Diagnosis: Left lower extremity cellulitis Condition on Discharge: Good Activity: As commented below Activity Comment: Keep left leg elevated above heart when sitting/lying Bathing: No limitations Driving/Machine Use: No limitations Weightbearing: Full weightbearing Non-emergency contact: Primary Care Provider Call non-emergency contact if: you have any medication questions, your symptoms worsen, your pain is not controlled, your pain is worsening, your pain is unusual for you, your pain is concerning for you, you have a fever, your temperature is above 101, your wound has increased redness, your wound has increased drainage and your wound pain has increased Follow-up/Referrals: Erendira Nayak MD [Primary Care Provider] - 07/03/19 11:00 am (Please follow up within 1 week APTT WITH ELORY DELONG) Jim Eddy DO [Surgeon] - 07/31/19 10:15 am (Call to make an appt in 4-6 weeks to discuss removal of your lower leg wound) Diet: Carb Consistent or DM2 and Heart Healthy Addtl Attending Provider Instructions: Please finish out the course of clindamycin as your antibiotic for 5 more days. You should remain out of work through Wednesday and your [facility] paperwork was filled out accordingly. Follow up with the Surgeon after the cellulitis resolves to discuss cutting out the portion of skin that has the chronic wound. Follow up with your PCP and with Endocrinology. Pending Studies at Discharge: Yes (Final Blood culture results) Stand-Alone Forms: My [facility] Medications and DC Order Prescriptions: New acetaminophen [Mapap (acetaminophen)] 325 mg Tablet 650 mg PO Q4H PRN (Reason: pain) Qty: 30 RF: 0 clindamycin HCl 300 mg capsule 600 mg PO TID 5 Days Qty: 30 RF: 0 Continued cholecalciferol (vitamin D3) 1,250 mcg (50,000 unit) capsule 1,250 mcg PO WEEKLY Qty: 4 RF: 5 atorvastatin 20 mg tablet 20 mg PO QPM Qty: 90 RF: 3 dulaglutide 1.5 mg/0.5 mL pen injector 1.5 mg subcut WEEKLY Qty: 2 RF: 5 lisinopril 40 mg tablet 40 mg PO DAILY Qty: 90 RF: 3 metformin 500 mg tablet extended release 24 hr 2,000 mg PO QPM Qty: 120 RF: 5 montelukast 10 mg tablet 10 mg PO DAILY Qty: 90 RF: 3 loratadine 10 mg tablet 10 mg PO DAILY PRN (Reason: allergy symptoms) RF: 0 sertraline 100 mg tablet 200 mg PO QAM RF: 0 Humulin R U-500 (Conc) Kwikpen 500 unit/mL (3 mL) insulin pen 120 - 140 unit SUBCUT QAM RF: 0 Humulin R U-500 (Conc) Kwikpen 500 unit/mL (3 mL) insulin pen 60 - 80 unit SUBCUT QPM RF: 0 insulin aspart U-100 [Novolog Flexpen U-100 Insulin] 100 unit/mL (3 mL) Insulin Pen 0 unit SUBCUT TID PRN (Reason: Hyperglycemia) RF: 0 fluticasone propion-salmeterol 250-50 mcg/dose blister with device 1 puffs inhalation BID PRN (Reason: Shortness Of Breath Or Wheezing) RF: 0 Discharge Orders: Discharge Order (Routine); Ordered 06/29/19 Ordered By: Meredith Oneil/Other Patient Handouts: Diabetes Social Worker Health Services Complications, Diabetes Healthy Meals, Diabetes Learn Serve Portion Size, Diabetes Manage Stress Admission Data Admit Date/Time: 06/24/19 21:34 Attending Provider: Meredith Emanuel Admit Provider: Michael Vazquez Primary Care Provider: Erendira Nayak V. 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
[2019-07-01] MEDS ORDERED: ERGOCALCIFEROL 50,000 UNITS CAP PO SCH (09:00)
== END 2019-06-29 15:01 | disposition home or self-care (01) | DRG 872 ==
LOC: ED 19:44 → SUATTDRO 21:34 → 3W 21:34